=== PATIENT | male | born 1955 | race Caucasian/White ===

== ENCOUNTER 2021-01-06 15:16 | Inpatient (IN) ==
--- NOTE | 2021-01-06 15:24 | DR.SOBA ---
HPI Time Seen Time Seen by Provider: 01/06/21 15:22 Complaints Chief Complaint Doctors Comments: 65 y/o male, has been ill with covid infection x 2 weeks. Has received out patient treatment, currently receiving Remdesivir therapy, had worsening dyspnea today. + cough, productive of some white phlegm. + fever. COVID-19 Coronavirus risk:travel/contact w/high risk person: Yes Has patient experienced Coronavirus symptoms: Yes Coronavirus symptoms experienced: Fever, Coughing and Shortness of Breath Reviewed Nurses Notes Reviewed: Yes Source History Provided: Patient Mode of Arrival Mode of Arrival: Wheelchair Modifying Factors Worsens:: Exertion Improves:: Nothing Associated Signs and Symptoms Associated Signs and Symptoms: Fever and Cough If Cough Cough: Productive and White PMH PMH Past Medical History: Diabetes, Dyslipidemia, GERD, Hypertension and Kidney Stones Past Surgical History: Yes Surgical History: Ortho Surgery and Tonsillectomy Family History Family Medical History: Diabetes Mellitus, Cancer and [place] Social History Do you use any recreational Drugs:: No ROS Review of Systems Constitutional: Chills, Fever and Weakness Eyes: No Symptoms Reported ENTM: No Symptoms Reported Respiratoy: Productive Cough and Short of Breath Cardiovascular: No Symptoms Reported Gastrointestinal/Abdominal: No Symptoms Reported Genitourinary: No Symptoms Reported Neurological: No Symptoms Reported Musculoskeletal: No Symptoms Reported Integumentary: No Symptoms Reported Hematologic/Lymphatic: No Symptoms Reported Endocrine: No Symptoms Reported Psychiatric: No Symptoms Reported All Other Systems: Reviewed and Negative PE Vital Signs Vitals: Temperature 98.1 F Pulse Rate 73 Respiratory Rate 20 Blood Pressure [Left Arm] 135/68 Blood Pressure 133/67 O2 Sat by Pulse Oximetry 92 General Limitations: No Limitations General Appearance: Alert and In No Apparent Distress Head Head Exam: Normal Inspection Eyes Eye exam: Normal Appearance ENT ENT Exam: Normal Exam Neck Neck Exam: Normal Inspection Chest Chest Inspection: Normal Inspection Respiratory Respiratory Exam: Left: Rhonchi and Right: Rales and Right: Rhonchi Cardiovascular Cardiovascular Exam: Regular Rate, Normal Rhythm and Normal Heart Sounds Abdominal Exam Abdominal Exam: Normal Inspection Extremities Extremities Exam: Normal Inspection and Full ROM; negative Edema Back Back Exam: Normal Inspection and Full ROM Neurologic Neurological Exam: Alert, Oriented X3 and CN II-XII Intact; negative Motor Sensory Deficit Psychiatric Psychiatric Exam: Normal Affect and Normal Mood Skin Skin Exam: Warm and Dry MDM Differential Diagnosis Differential Diagnosis: CHF and Pneumonia Differential Diagnosis Comment:: Covid pneumonia, CAD COURSE Treatment Treatment: Pt with covid x 2 weeks, presented for outpatient Remdesivir therapy. + Hypoxic on arrival for outpatient therapy, deferred to the ER. Having worsening dyspnea today. ABG yesterday had low O2 yesterday. Requiring 5 L via NC to maintain pulse ox. W/u initiated. Given IV zithromax. Lactic acid elevated at 2.5, given IV fluids. 1702 - discussed with pt's attending, Dr. Yang. Will admit the pt, requested ABG on O2 (yesterday's on room air had low O2). ROR Labs Reviewed Laboratory Results Reviewed?: Yes Result Diagrams: 01/06/21 15:35 01/06/21 15:35 Laboratory: WBC 10.9 X10^3/uL (3.6-10.0) H 01/06/21 15:35 RBC 4.98 X10^6/uL (4.7-6.0) 01/06/21 15:35 Hgb 14.2 g/dL (13.5-18.0) 01/06/21 15:35 Hct 42.1 % (42.0-54.0) 01/06/21 15:35 MCV 84.6 fL (80.0-100.0) 01/06/21 15:35 MCH 28.5 pg (27.0-34.0) 01/06/21 15:35 MCHC 33.6 g/dL (33.0-35.0) 01/06/21 15:35 RDW 13.9 % (11.6-16.5) 01/06/21 15:35 Plt Count 380 X10^3/uL (150.0-450.0) 01/06/21 15:35 MPV 8.7 fL (7.4-11.0) 01/06/21 15:35 Neut % (Auto) 80.0 % (42.0-75.0) H 01/06/21 15:35 Lymph % (Auto) 5.1 % (21.0-51.0) L 01/06/21 15:35 [place] % (Auto) 14.6 % (0.0-13.0) H 01/06/21 15:35 Eos % (Auto) 0.0 % (0.9-2.9) L 01/06/21 15:35 Baso % (Auto) 0.3 % (0.2-1.0) 01/06/21 15:35 Neut # (Auto) 8.7 x10^3/uL (2.2-4.8) H 01/06/21 15:35 Lymph # (Auto) 0.6 X10^3/uL (1.3-2.9) L 01/06/21 15:35 [place] # (Auto) 1.6 x10^3/uL (0.3-0.8) H 01/06/21 15:35 Eos # (Auto) 0.0 x10^3/uL (0.0-0.2) 01/06/21 15:35 Baso # (Auto) 0.0 X10^3/uL (0.0-0.1) 01/06/21 15:35 Absolute Nucleated RBC 0.1 /100WBC 01/06/21 15:35 Sample Site Lbra 01/06/21 17:12 ABG pH 7.410 (7.35-7.45) 01/06/21 17:12 ABG pCO2 37.0 mmHg (35.0-45.0) 01/06/21 17:12 ABG pO2 59.0 mmHg (80.0-100.0) L 01/06/21 17:12 ABG HCO3 23.5 mmol/L (22-26) 01/06/21 17:12 ABG O2 Saturation 90.0 % (90-100) 01/06/21 17:12 ABG Base Excess -0.9 mmol/L (-2.0-2.0) 01/06/21 17:12 Mello Test N/a 01/06/21 17:12 A-a Gradient 151.0 mmHg 01/06/21 17:12 FiO2 36.0 01/06/21 17:12 Blood Gas Comments Pt andrew well elj 01/06/21 17:12 Sodium 145 mmol/L (136-145) 01/06/21 15:35 Corrected Sodium 147 mmol/L (136-145) H 01/06/21 15:35 Potassium 5.1 mmol/L (3.5-5.1) 01/06/21 15:35 Chloride 108 mmol/L (98-107) H 01/06/21 15:35 Carbon Dioxide 29.1 mmol/L (21-32) 01/06/21 15:35 BUN 44 mg/dL (7-18) H 01/06/21 15:35 Creatinine 1.51 mg/dL (0.70-1.30) H 01/06/21 15:35 Est GFR (MDRD) Af Amer 60 (>60) 01/06/21 15:35 Est GFR (MDRD) Non-Af 50 (>60) L 01/06/21 15:35 Glucose 192 mg/dL (65-99) H 01/06/21 15:35 Lactic Acid 2.5 mmol/L (0.4-2.0) H 01/06/21 15:35 Calcium 10.2 mg/dL (8.5-10.1) H 01/06/21 15:35 Corrected Calcium 11.1 mg/dL (8.5-10.1) H 01/06/21 15:35 Total Bilirubin 0.30 mg/dL (0.2-1.0) 01/06/21 15:35 AST 59 Units/L (15-37) H 01/06/21 15:35 ALT 42 Units/L (12-78) 01/06/21 15:35 Alkaline Phosphatase 40 Units/L (46-116) L 01/06/21 15:35 Creatine Kinase 295 Units/L (39-308) 01/06/21 15:35 CK-MB (CK-2) 2.4 ng/mL (0-4.0) 01/06/21 15:35 CK/CKMB % Calc 0.8 % (<4) 01/06/21 15:35 Troponin I < 0.02 ng/mL (0-1.5) 01/06/21 15:35 Total Protein 7.9 g/dL (6.4-8.2) 01/06/21 15:35 Albumin 2.9 g/dL (3.4-5.0) L 01/06/21 15:35 Globulin 5.0 g/dL (2.5-4.5) H 01/06/21 15:35 Albumin/Globulin Ratio 0.6 Ratio (1.1-2.1) L 01/06/21 15:35 XRAY XRAY Interpreted by: Self X-ray Results: + bilateral infiltrates c/w bilateral pneumonia. EKG Rate: 74 [place]: Normal Rhythm: NSR Block: IVCD Hypertrophy: LAE ST: Nonsp Opioid Opioid Risk Tool Age (Moiz box if 16-45): No History of Preadolescent Sexual Abuse: No Total: 0 Total Score Risk Category: Low Risk Copyright: Anuel GUNTER predicting aberrant behaviors Diagnosis Discharge Problem: Pneumonia due to COVID-19 virus
[2021-01-06 16:02] LABS: BASOPHILS % (AUTO) 0.3 % (0.2-1.0); HEMATOCRIT 42.1 % (42.0-54.0); HEMOGLOBIN 14.2 g/dL (13.5-18.0); LYMPHOCYTES # (AUTO) 0.6 X10^3/uL (1.3-2.9); LYMPHOCYTES % (AUTO) 5.1 % (21.0-51.0); MEAN CORPUSCULAR HEMOGLOBIN 28.5 pg (27.0-34.0); MEAN CORPUSCULAR HGB CONC 33.6 g/dL (33.0-35.0); MEAN CORPUSCULAR VOLUME 84.6 fL (80.0-100.0); MEAN PLATELET VOLUME 8.7 fL (7.4-11.0); MONOCYTES # (AUTO) 1.6 x10^3/uL (0.3-0.8); MONOCYTES % (AUTO) 14.6 % (0.0-13.0); NEUTROPHILS # (AUTO) 8.7 x10^3/uL (2.2-4.8); PLATELET COUNT 380 X10^3/uL (150.0-450.0); RED BLOOD COUNT 4.98 X10^6/uL (4.7-6.0); RED CELL DISTRIBUTION WIDTH 13.9 % (11.6-16.5); WHITE BLOOD COUNT 10.9 X10^3/uL (3.6-10.0)
[2021-01-06 16:13] LABS: LACTIC ACID 2.5 mmol/L (0.4-2.0)
[2021-01-06] MEDS ORDERED: ZITHROMAX INJ 500 MG VIAL 500 MG in NS 250 ML IV 250 ML IV SCH (16:20)
[2021-01-06 16:21] LABS: ALANINE AMINOTRANSFERASE 42 Units/L (12-78); ALBUMIN 2.9 g/dL (3.4-5.0); ALKALINE PHOSPHATASE 40 Units/L (46-116); ASPARTATE AMINO TRANSFERASE 59 Units/L (15-37); BLOOD UREA NITROGEN 44 mg/dL (7-18); CALCIUM 10.2 mg/dL (8.5-10.1); CARBON DIOXIDE 29.1 mmol/L (21-32); CHLORIDE 108 mmol/L (98-107); CKMB % 0.8 % (<4); COR CA(FOR HYPOALB) 11.1 mg/dL (8.5-10.1); COR NA(FOR HYPERGLY) 147 mmol/L (136-145); CREATINE KINASE 295 Units/L (39-308); CREATINE KINASE MB 2.4 ng/mL (0-4.0); CREATININE 1.51 mg/dL (0.70-1.30); SODIUM 145 mmol/L (136-145); TOTAL PROTEIN 7.9 g/dL (6.4-8.2); TROPONIN I < 0.02 ng/mL (0-1.5); eGFR NON BLACK RACES 50 (>60)
[2021-01-06] MEDS ORDERED: NS 1000 ML 1,000 ML IV ONE (16:22)
[2021-01-06] MEDS ORDERED: NS 1000 ML 1,000 ML ONE (16:51)
[2021-01-06] MEDS ORDERED: NS 250 ML IV 250 ML IV ONE (16:52)
[2021-01-06] MEDS ORDERED: ZITHROMAX INJ 500 MG VIAL IV ONE (16:52)
[2021-01-06 17:18] LABS: ABG BASE EXCESS -0.9 mmol/L (-2.0-2.0); ABG HCO3 23.5 mmol/L (22-26)
[2021-01-06] MEDS ORDERED: PHARMACY CONSULT - IVERMECTIN XX SCH (18:00)
[2021-01-06] MEDS ORDERED: ACCUNEB 1.25 MG NEBULE NEB SCH (18:00)
[2021-01-06] MEDS ORDERED: NS 100 ML IV 100 ML ONE (18:46)
[2021-01-06] MEDS ORDERED: ACCUNEB 1.25 MG NEBULE NEB PRN (19:01)
[2021-01-06 19:12] LABS: CKMB % 0.8 % (<4); CREATINE KINASE 357 Units/L (39-308); CREATINE KINASE MB 2.7 ng/mL (0-4.0); TROPONIN I < 0.02 ng/mL (0-1.5)
[2021-01-06] MEDS: BROVANA IN SCH (20:11)
[2021-01-06] MEDS: PULMICORT NEB TX 0.5 MG NEB SCH (20:11)
--- NOTE | 2021-01-06 20:25 | CT ---
HISTORYSOB/ COVIDSTUDYCTA CHESTCOMPARISONNoneTECHNIQUECT images of the chest were obtained after IV contrast administration per protocol. Automatic exposure control was utilized. MIP images provided and reviewed.FINDINGSImages through the upper abdomen demonstrate moderate hiatal hernia of the stomach. 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 No acute osseous abnormality.The heart size is normal without significant pericardial thickening or pericardial effusion. No pathologically enlarged intrathoracic lymph nodes are identified. The thoracic aorta is grossly unremarkable for technique. Evaluation of the smaller segmental and subsegmental pulmonary arteries is limited by suboptimal contrast bolus timing. Accounting for this, no pulmonary arterial filling defect can be identified. There are peripheral predominant patchy ground-glass opacities throughout both lungs. No pleural effusion or pneumothorax. The large airways are patent.IMPRESSIONExtensive atypical/viral pneumonitis, in keeping with the above history of COVID-19.No evidence for central or large proximal PTE.Hiatal hernia.Electronically signed by: LAUREN STEWART (Jan 06, 2021 20:22:23)
[2021-01-06] MEDS ORDERED: NS 1/2 1000 ML IV 1,000 ML IV ONE (21:09)
[2021-01-06] MEDS: IVERMECTIN PO SCH (22:05)
[2021-01-06] MEDS: PEPCID TAB 20 MG PO SCH (22:05)
[2021-01-06] MEDS: MELATONIN PO SCH (22:05)
[2021-01-06] MEDS: MAGIC MOUTHWASH MT SCH (22:05)
[2021-01-06] MEDS: FLUVOXAMINE MALEATE PO SCH (22:05)
[2021-01-06] MEDS: THIAMINE HCL INJ IVP SCH (22:05)
[2021-01-06] MEDS: SINGULAIR TAB 10 MG PO SCH (22:05)
[2021-01-06] MEDS: LIPITOR TAB 80 MG PO SCH (22:05)
[2021-01-06] MEDS: TESSALON PERLES PO SCH (22:05)
[2021-01-06] MEDS: PROTONIX TAB 40 MG PO SCH (22:05)
[2021-01-06] MEDS: PERIACTIN TAB 4 MG PO SCH (22:05)
[2021-01-06] MEDS: NS 1/2 1000 ML IV 1,000 ML IV SCH (22:06)
[2021-01-06] MEDS: ASCORBIC ACID INJ MULTI-DOSE VIAL 1,500 MG in NS 50 ML IV 50 ML IV SCH (22:06)
[2021-01-06] MEDS: SOLU-Medrol 40 MG VIAL IVP SCH ×2 (22:06→22:33)
[2021-01-06] MEDS ORDERED: ROBITUSSIN DM ONE (22:23)
[2021-01-06] MEDS: SNACK - Diabetic Appropriate PO SCH (22:30)
[2021-01-06] MEDS: ROBITUSSIN DM PO PRN (22:34)
[2021-01-06] MEDS: REMDESIVIR 100 MG in NS 250 ML IV 250 ML IV SCH (22:40)
[2021-01-07 03:49] LABS: ABG BASE EXCESS -0.5 mmol/L (-2.0-2.0); ABG HCO3 24.2 mmol/L (22-26)
[2021-01-07 03:50] LABS: ABG ALLEN TEST POS
[2021-01-07] MEDS: ASCORBIC ACID INJ MULTI-DOSE VIAL 1,500 MG in NS 50 ML IV 50 ML IV SCH ×4 (04:00→21:00)
--- NOTE | 2021-01-07 05:26 | RAD ---
PROCEDURE: Chest X-ray 1 View .HISTORY: Dyspnea.TECHNIQUE: AP view .COMPARISON: 01/06/2021.TECHNICAL QUALITY: Satisfactory .FINDINGS:Normal size heart .Mediastinum and hilar regions show no masses or lymphadenopathy .Normal central vascularity .Continued consolidation left base consistent with pneumonia. Similar appearing consolidation right mid lung feel with some atelectasis. No pleural fluid or pneumothorax.No acute bony abnormality .IMPRESSION:Unchanged bilateral pneumonia and atelectasis.Electronically signed by: Jeffery Valdez (Jan 07, 2021 05:23:25)
[2021-01-07] MEDS ORDERED: TESSALON PERLES PO ONE ×2 (05:31→13:57)
[2021-01-07] MEDS ORDERED: SOLU-Medrol 40 MG VIAL ONE ×2 (05:31→13:57)
[2021-01-07 06:21] LABS: BASOPHILS % (AUTO) 0.3 % (0.2-1.0); HEMATOCRIT 38.5 % (42.0-54.0); HEMOGLOBIN 12.7 g/dL (13.5-18.0); LYMPHOCYTES # (AUTO) 0.5 X10^3/uL (1.3-2.9); LYMPHOCYTES % (AUTO) 4.4 % (21.0-51.0); MEAN CORPUSCULAR HGB CONC 33.1 g/dL (33.0-35.0); MEAN CORPUSCULAR VOLUME 84.7 fL (80.0-100.0); MEAN PLATELET VOLUME 9.4 fL (7.4-11.0); MONOCYTES # (AUTO) 0.5 x10^3/uL (0.3-0.8); NEUTROPHILS # (AUTO) 10.6 x10^3/uL (2.2-4.8); NEUTROPHILS % (AUTO) 91.3 % (42.0-75.0); PLATELET COUNT 358 X10^3/uL (150.0-450.0); RED BLOOD COUNT 4.55 X10^6/uL (4.7-6.0); RED CELL DISTRIBUTION WIDTH 13.8 % (11.6-16.5); WHITE BLOOD COUNT 11.6 X10^3/uL (3.6-10.0)
[2021-01-07 06:30] LABS: ALANINE AMINOTRANSFERASE 37 Units/L (12-78); ALBUMIN 2.5 g/dL (3.4-5.0); ALKALINE PHOSPHATASE 34 Units/L (46-116); ASPARTATE AMINO TRANSFERASE 56 Units/L (15-37); BLOOD UREA NITROGEN 38 mg/dL (7-18); CARBON DIOXIDE 26.9 mmol/L (21-32); CHLORIDE 111 mmol/L (98-107); COR CA(FOR HYPOALB) 10.2 mg/dL (8.5-10.1); COR NA(FOR HYPERGLY) 149 mmol/L (136-145); CREATININE 1.24 mg/dL (0.70-1.30); SODIUM 146 mmol/L (136-145); TOTAL PROTEIN 6.8 g/dL (6.4-8.2); eGFR NON BLACK RACES > 60 (>60)
[2021-01-07] MEDS: SOLU-Medrol 40 MG VIAL IVP SCH ×3 (06:35→21:00)
[2021-01-07] MEDS: PERIACTIN TAB 4 MG PO SCH ×3 (06:35→21:00)
[2021-01-07] MEDS: TESSALON PERLES PO SCH ×3 (06:35→21:00)
[2021-01-07] MEDS: NS 1/2 1000 ML IV 1,000 ML IV SCH ×2 (06:35→20:00)
[2021-01-07] MEDS ORDERED: HumuLIN R ONE ×2 (07:00→13:14)
[2021-01-07] MEDS: HumuLIN R SUBCUT PRN ×4 (07:05→21:00)
[2021-01-07 07:36] LABS: BAND NEUTROPHILS % 4 % (0-10); PLATELET MORPHOLOGY COMMENT NORMAL (NORMAL)
[2021-01-07] MEDS ORDERED: PROTONIX TAB 40 MG PO ONE (08:43)
[2021-01-07] MEDS ORDERED: ZyrTEC TAB 10 MG ONE (08:43)
[2021-01-07] MEDS ORDERED: THIAMINE HCL INJ ONE (08:44)
[2021-01-07] MEDS ORDERED: PEPCID TAB 20 MG ONE (08:44)
[2021-01-07] MEDS ORDERED: VITAMIN D3 125 mcg (5,000 UNITS) ONE (08:44)
[2021-01-07] MEDS ORDERED: REMDESIVIR IV ONE (08:44)
[2021-01-07] MEDS ORDERED: LOVENOX INJ 40 MG SYR SC ONE (08:44)
[2021-01-07] MEDS ORDERED: ZINC SULFATE ONE (08:44)
[2021-01-07] MEDS ORDERED: NS 500 ML IV 500 ML IV ONE (08:45)
[2021-01-07] MEDS ORDERED: NS 250 ML IV 250 ML IV ONE ×2 (08:45→08:46)
[2021-01-07] MEDS ORDERED: ZITHROMAX INJ 500 MG VIAL IV ONE (08:45)
[2021-01-07] MEDS ORDERED: LEVAQUIN PREMIX IV 500 MG 500 MG/100 ML BAG IV ONE (08:45)
[2021-01-07] MEDS: ZyrTEC TAB 10 MG PO SCH (08:59)
[2021-01-07] MEDS: AVODART PO SCH (09:00)
[2021-01-07] MEDS: LEVAQUIN PREMIX IV 500 MG 500 MG/100 ML BAG IV SCH (09:01)
[2021-01-07] MEDS: ZITHROMAX INJ 500 MG VIAL 500 MG in NS 250 ML IV 250 ML IV SCH (09:02)
[2021-01-07] MEDS: REMDESIVIR 100 MG in NS 250 ML IV 250 ML IV SCH (09:03)
[2021-01-07] MEDS: FLUVOXAMINE MALEATE PO SCH ×2 (09:03→21:00)
[2021-01-07] MEDS: MAGIC MOUTHWASH MT SCH ×4 (09:04→21:00)
[2021-01-07] MEDS: THIAMINE HCL INJ IVP SCH ×2 (09:04→21:00)
[2021-01-07] MEDS: LOVENOX INJ 40 MG SYR SC SCH (09:05)
[2021-01-07] MEDS: VITAMIN D3 125 mcg (5,000 UNITS) PO SCH (09:06)
[2021-01-07] MEDS: ZINC SULFATE PO SCH (09:06)
[2021-01-07] MEDS: PROTONIX TAB 40 MG PO SCH ×2 (09:08→21:00)
[2021-01-07] MEDS: PEPCID TAB 20 MG PO SCH ×2 (09:08→21:00)
[2021-01-07] MEDS: BROVANA IN SCH ×2 (09:44→21:00)
[2021-01-07] MEDS: PULMICORT NEB TX 0.5 MG NEB SCH ×2 (09:44→21:00)
[2021-01-07] MEDS: SNACK - Diabetic Appropriate PO SCH (20:00)
[2021-01-07] MEDS ORDERED: NS 1/2 1000 ML IV 1,000 ML IV ONE (20:10)
[2021-01-07] MEDS: SINGULAIR TAB 10 MG PO SCH (21:00)
[2021-01-07] MEDS: LIPITOR TAB 80 MG PO SCH (21:00)
[2021-01-07] MEDS: MELATONIN PO SCH (21:00)
[2021-01-07] MEDS: IVERMECTIN PO SCH (21:00)
[2021-01-08] MEDS: ASCORBIC ACID INJ MULTI-DOSE VIAL 1,500 MG in NS 50 ML IV 50 ML IV SCH ×4 (03:35→21:00)
[2021-01-08 05:07] LABS: BASOPHILS # (AUTO) 0.1 X10^3/uL (0.0-0.1); BASOPHILS % (AUTO) 0.6 % (0.2-1.0); HEMATOCRIT 36.8 % (42.0-54.0); HEMOGLOBIN 12.2 g/dL (13.5-18.0); LYMPHOCYTES # (AUTO) 0.5 X10^3/uL (1.3-2.9); LYMPHOCYTES % (AUTO) 3.1 % (21.0-51.0); MEAN CORPUSCULAR HGB CONC 33.3 g/dL (33.0-35.0); MEAN CORPUSCULAR VOLUME 83.9 fL (80.0-100.0); MEAN PLATELET VOLUME 9.1 fL (7.4-11.0); MONOCYTES # (AUTO) 0.8 x10^3/uL (0.3-0.8); MONOCYTES % (AUTO) 4.8 % (0.0-13.0); NEUTROPHILS # (AUTO) 14.5 x10^3/uL (2.2-4.8); NEUTROPHILS % (AUTO) 91.5 % (42.0-75.0); PLATELET COUNT 380 X10^3/uL (150.0-450.0); RED BLOOD COUNT 4.38 X10^6/uL (4.7-6.0); RED CELL DISTRIBUTION WIDTH 14.1 % (11.6-16.5); WHITE BLOOD COUNT 15.8 X10^3/uL (3.6-10.0)
[2021-01-08 05:22] LABS: ALANINE AMINOTRANSFERASE 40 Units/L (12-78); ALBUMIN 2.4 g/dL (3.4-5.0); ALKALINE PHOSPHATASE 37 Units/L (46-116); ASPARTATE AMINO TRANSFERASE 48 Units/L (15-37); BLOOD UREA NITROGEN 37 mg/dL (7-18); CALCIUM 8.6 mg/dL (8.5-10.1); CARBON DIOXIDE 26.4 mmol/L (21-32); CHLORIDE 111 mmol/L (98-107); COR CA(FOR HYPOALB) 9.9 mg/dL (8.5-10.1); COR NA(FOR HYPERGLY) 149 mmol/L (136-145); CREATININE 1.19 mg/dL (0.70-1.30); SODIUM 145 mmol/L (136-145); TOTAL PROTEIN 6.4 g/dL (6.4-8.2); eGFR NON BLACK RACES > 60 (>60)
[2021-01-08 05:59] LABS: ABG HCO3 25.2 mmol/L (22-26)
[2021-01-08 06:00] LABS: ABG ALLEN TEST POSS
[2021-01-08 06:00] LABS: METAMYELOCYTES % 2; PLATELET MORPHOLOGY COMMENT NORMAL (NORMAL)
[2021-01-08] MEDS: TESSALON PERLES PO SCH ×3 (06:29→21:00)
[2021-01-08] MEDS: PERIACTIN TAB 4 MG PO SCH ×3 (06:29→21:00)
[2021-01-08] MEDS: SOLU-Medrol 40 MG VIAL IVP SCH ×3 (06:29→21:00)
[2021-01-08] MEDS: HumuLIN R SUBCUT PRN ×3 (06:30→21:00)
--- NOTE | 2021-01-08 07:01 | RAD ---
HISTORYSOBSTUDYCHEST, 1 VIEWCOMPARISONOne day prior.TECHNIQUEAP view of the chestFINDINGSCardiac and mediastinal contours are within normal limits. No significant change in bilateral airspace and interstitial opacities. No definite pleural effusion or pneumothorax. Soft tissue attenuation limits evaluation.IMPRESSIONNo significant change.Electronically signed by: Dick Banegas (Jan 08, 2021 06:57:48)
[2021-01-08] MEDS ORDERED: NS 50 ML IV 50 ML IV ONE (08:33)
[2021-01-08] MEDS: ZINC SULFATE PO SCH (08:42)
[2021-01-08] MEDS: ROBITUSSIN DM PO PRN ×3 (08:42→18:02)
[2021-01-08] MEDS: ZyrTEC TAB 10 MG PO SCH (08:42)
[2021-01-08] MEDS: FLUVOXAMINE MALEATE PO SCH ×2 (08:42→21:00)
[2021-01-08] MEDS: PEPCID TAB 20 MG PO SCH ×2 (08:42→21:00)
[2021-01-08] MEDS: AVODART PO SCH (08:42)
[2021-01-08] MEDS: VITAMIN D3 125 mcg (5,000 UNITS) PO SCH (08:42)
[2021-01-08] MEDS: PROTONIX TAB 40 MG PO SCH ×2 (08:42→21:00)
[2021-01-08] MEDS: THIAMINE HCL INJ IVP SCH ×2 (08:43→21:00)
[2021-01-08] MEDS: LOVENOX INJ 40 MG SYR SC SCH (08:55)
[2021-01-08] MEDS: MAGIC MOUTHWASH MT SCH ×4 (08:56→21:00)
[2021-01-08] MEDS ORDERED: CELEBREX PO SCH (09:00)
[2021-01-08] MEDS: [UNRECOGNIZED DRUG - OTHER] PO SCH (09:30)
[2021-01-08] MEDS: SYNTHROID 50 mcg TAB PO SCH (09:30)
[2021-01-08] MEDS: SITAGLIPTIN METFORMIN PO SCH (09:32)
[2021-01-08] MEDS: [UNRECOGNIZED DRUG - OTHER] PO SCH (09:32)
[2021-01-08] MEDS: MULT PO SCH (09:32)
[2021-01-08] MEDS: PRASTERONE 25 MG PO SCH (09:33)
[2021-01-08] MEDS: QUINAPRIL 40 MG PO SCH ×2 (09:33→21:00)
[2021-01-08] MEDS: LEVAQUIN PREMIX IV 500 MG 500 MG/100 ML BAG IV SCH (09:34)
[2021-01-08] MEDS: MICRO K EXTEN CAP 10 MEQ PO SCH (09:35)
[2021-01-08] MEDS: FENOFIBRATE 50 MG PO SCH (09:37)
[2021-01-08] MEDS: DITROPAN TAB 5 MG PO SCH (09:38)
[2021-01-08] MEDS: NS 1/2 1000 ML IV 1,000 ML IV SCH ×2 (09:39→17:00)
[2021-01-08] MEDS: LYRICA CAP 150 mg PO SCH (09:46)
[2021-01-08] MEDS: BROVANA IN SCH ×2 (10:00→21:29)
[2021-01-08] MEDS: PULMICORT NEB TX 0.5 MG NEB SCH ×2 (10:00→21:29)
--- NOTE | 2021-01-08 10:30 | DR.H&P ---
H&P - History & Physical for Day of: H&P Date: 01/06/21 - Chief Complaint Chief Complaint: COUGH, SOB, LOW OXYGEN SATURATIONS, COVID POSITIVE - History of Present Illness History of Present Illness: MR. STEVENSON A 65 YEAR OLD PATIENT OF OURS. HE PRESENTED TO THE ER WITH COMPLAINTS OF A PRODUCTIVE COUGH, INCREASED SHORTNESS OF BREATH, FATIGUE, WEAKNESS, FEVER, AND DECREASED APPETITE. PATIENT HAS RECEIVED ONE DOSE OUT OUTPATIENT REMDESIVIR FOR TREATMENT OF COVID-19. HE RETURNED FOR HIS SECOND DOSE TODAY, HOWEVER, WAS SENT TO THE ER FOR EVALUATION DUE TO WORSENING SYMPTOMS AND OXYGEN SATURATIONS 78% ON ROOM AIR. HE TESTED POSITIVE FOR COVID-19 ABOUT A WEEK AGO. HE REPORTS THAT HIS OXYGEN SATURATIONS AT HOME HAVE OCCASIONALLY DROPPED TO THE 80s ON ROOM AIR. HE DOES NOT HAVE HOME OXYGEN. AT HOME, HE HAS TAKEN A MEDROL DOSEPACK, DOXYCYCLINE 100MG PO BID X 10 DAYS, IVERMECTIN, AND AMOXICILLIN 875MG PO BID X 5 DAYS. HE DENIED IMPROVEMENT IN SYMPTOMS DESPITE COMPLIANCE WITH MEDICATIONS. HIS PMH INCLUDES: CARDIAC ARRHYTHMIA, HYPERLIPIDEMIA, HTN, GERD, KIDNEY STONES, BACK SURGERY, DM II, HYPOTHYROIDISM, CARDIAC ABLATION, TONSILLECTOMY, BACK SURGERY. ON ARRIVAL TO THE HOSPITAL, VITALS WERE 98.7-73-20-95%NC-163/86. LABS WERE OBTAINED. ABNORMAL LAB VALUES INCLUDE THE FOLLOWING: WBC 10.9, CHLORIDE 108, BUN 44, CREATININE 1.51, GLUCOSE 192, LACTIC ACID 2.5, CALCIUM 10.2, FERRITIN 696, AST 59, ALK PHOS 40, CRP 57.90, BNP 100, ALBUMIN 2.9, GLOBULIN 5.0. ABG REVEALED: PH 7.410, PC02 37, PC02 59, HC03 23.5, 02 SAT 90, A-A GRADIENT 151, FI02 36. BLOOD CULTURES WERE SET UP. A CHEST CTA WAS OBTAINED AND REVEALED: Extensive atypical/viral pne umonitis, in keeping with the above history of COVID-19. No evidence for central or large proximal PTE. Hiatal hernia. EKG REVEALED: SINUS RHYTHM WITH HR 74. HE WAS ADMITTED TO THE HOSPITAL FOR FURTEHR EVALUATION AND TREATMENT OF COVID 19 PNEUMONIA AND HYPOXIA. HE WAS STARTED ON NS AT 75 ML/HR, REMDESIVIR 100MG IV DAILY, LEVAQUIN 500MG IV DAILY, AITHROMYCIN 500MG IV DAILY, SOLU-MEDROL 80MG IV Q8H, IVERMECTIN 15MG PO DAILY X 5 DAYS, PROTONIX 40MG PO BID, PEPCID 20MG PO BID, THIAMINE 200MG IV BID, ZINC 220MG PO DAILY, SINGULAIR 10MG PO HS, ZYRTEC 10MG PO DAILY, OTBS ACHS, HUMULIN R SLIDING SCALE, MELATONIN 10MG PO HS, ROBITUSSIN DM 10ML PO QID PRN, LOVENOX 40MG SC DAILY, PERIACTIN 8MG PO TID, PULMICORT NEBS BID, ALBUTEROL NEBS QID, BROVANA INHALER BID, TESSALON PERLES 200MG PO TID, LIPITOR 80MG PH HS, ASCORBIC ACID 1500MG IV Q6H, FLUVOXAMINE 50MG PO BID, ZOFRAN 4MG IV Q4H PRN NAUSEA, AMBIEN 5MG PO HS PRN, AND MAGIC MOUTHWASH QID. HIS HOME MEDICATIONS OF CELEBREX, SYNTHROID, DITROPAN, AND LYRICA WERE ALSO RESUMED. WE PLAN TO OBTAIN AN ECHO. OTHERWISE, WE WILL FOLLOW UP WITH AM LABS, CHEST XRAY, ABG AND CONTINUE TO MONITOR. TIME SPENT ON CLINICAL ASSESSMENT, REVIEWING LABS AND IMAGING, DECISION MAKING, AND DOCUMENTATION GREATER THAN 75 MINUTES. - Past Medical History Past Medical History: Hypertension, Dyslipidemia, Diabetes, GERD, Kidney Stones - Past Surgical History Surgical History: Ortho Surgery, Tonsillectomy - Family History Family Medical History: Diabetes Mellitus, Cancer, [place] - Social History Does patient currently use any type of tobacco product: No Have you used tobacco products in the last 12 months: No Type of Tobacco Use: None Does any household member use tobacco: No Alcohol Use: None Drug Use: None - Medications Home Medications: No Known Drug Allergies Allergy (Verified 01/06/21 14:36) CONTINUE taking the following medications celecoxib 200 mg PO DAILY 01/07/21 [History] cholecalciferol (vitamin D3) [Vitamin D3] 10,000 unit PO DAILY 01/07/21 [History] fenofibrate 200 mg PO DAILY 01/07/21 [History] gabapentin [Neurontin] 100 mg PO TID 01/07/21 [History] axrno-qjhij-5-vnz-ktu-qnnjim [krill oil] 350 cap PO DAILY 01/07/21 [History] oxybutynin chloride 5 mg PO DAILY 01/07/21 [History] prasterone (dhea) [DHEA] 25 mg PO DAILY 01/07/21 [History] sitagliptin-metformin [Janumet XR] 1 tab PO DAILY 01/07/21 [History] - Review of Systems Constitutional: Weakness Eyes: No Symptoms Reported ENT: No Symptoms Reported Respiratory: Cough, Shortness of Breath Cardiovascular: No Symptoms Reported Gastrointestinal: No Symptoms Reported Genitourinary: No Symptoms Reported Musculoskeletal: No Symptoms Reported Skin: No Symptoms Reported Neurological: Weakness - Physical Exam Vital Signs: Temperature 97.9 F Pulse Rate [Left Brachial] 65 Pulse Rate [Apical] 66 Pulse Rate 62 Respiratory Rate 21 Blood Pressure [Left Arm] 161/77 Blood Pressure 157/77 O2 Sat by Pulse Oximetry 88 Oriented: Normal Eyes: Normal Ear: Normal Nose: Normal Throat: Normal Respiratory: Rales Throughout Cardiovascular: Normal : Normal Auscultation: Bowel Sounds: Normal Palpation: Normal Tenderness: Normal Skin: Normal Musculoskeletal: Normal Psychiatric: Normal Mood Description: Calm Affect: Normal Speech Pattern: Clear - Assessment/Plan (1) Pneumonia due to COVID-19 virus Status: Acute Plan: ADMIT, SUPPLEMENTAL OXYGEN, IV FLUIDS, IV REMDESIVIR, IV ANTIBIOTICS, SOLU-MEDROL, RESPIRATORY THERAPY, RESPIRATORY TX (2) Hypoxia Status: Acute - Allergies Allergies/Adverse Reactions: Allergies Allergy/AdvReac Type Severity Reaction Status Date / Time No Known Drug Allergies Allergy Verified 01/06/21 14:36
[2021-01-08] MEDS: REMDESIVIR 100 MG in NS 250 ML IV 250 ML IV SCH (10:47)
--- NOTE | 2021-01-08 11:07 | PCM.PROG ---
Progress Note - Progress Note for Day of Date of Exam: 01/07/21 - Subjective Subjective: MR. STEVENSON WAS ADMITTED FOR TREATMENT OF COVID PNEUMONIA AND HYPOXIA. TODAY, HE IS ALERT AND ORIENTED, LYING IN BED ON MORNING ROUNDS. HE CONTINUES WITH COMPLAINTS OF COUGH, SHORTNESS OF BREATH, AND WEAKNESS TODAY. HE IS CURRENTLY ON HEATED HIGH FLOW OXYGEN. HIS SATURATIONS HAVE DROPPED INTO THE 80s ON MULTIPLE OCCASIONS THROUGHOUT THE NIGHT. ON EXAMINATION, HEART IS REGULAR IN RATE AND RHYTHM. BILATERAL LUNGS ARE NOTED WITH RALES THROUGHOUT. ABDOMEN IS ROUND, SOFT, AND NON-TENDER WITH NORMAL BOWEL SOUNDS NOTED IN ALL QUADRANTS. HIS VITALS THIS MORNING ARE: 98.8-68-28-93%-167/83. LABS WERE OBTAINED. ABNORMAL LAB VALUES INCLUDE THE FOLLOWING: WBC 11.6, RBC 4.55, HGB 12.7, HCT 38.5, SODIUM 146, CHLORIDE 111, BUN 38, GLUCOSE 223, FERRITIN 711, AST 56, ALK PHOS 34, CRP 33.90, ALBUMIN 2.5. AN ABG WAS OBTAINED AND REVEALED: PH 7.400, PC02 39, P02 80, HC03 24.2, 02 SAT 96, A-A GRADIENT 406, FI02 75. BLOOD CULTURES ARE PENDING. A CHEST XRAY WAS OBTAINED AND REVEALED: Unchanged bilateral pneumonia and atelectasis. AN ECHO WAS OBTAINED AND REVEALED AN EJECTION FRACTION OF 61%. HE IS CURRENTLY RECEIVING NS AT 75 ML/HR, REMDESIVIR 100MG IV DAILY, LEVAQUIN 500MG IV DAILY, AITHROMYCIN 500MG IV DAILY, SOLU-MEDROL 80MG IV Q8H, IVERMECTIN 15MG PO DAILY X 5 DAYS, PROTONIX 40MG PO BID, PEPCID 20MG PO BID, THIAMINE 200MG IV BID, ZINC 220MG PO DAILY, SINGULAIR 10MG PO HS, ZYRTEC 10MG PO DAILY, OTBS ACHS, HUMULIN R SLIDING SCALE, MELATONIN 10MG PO HS, ROBITUSSIN DM 10ML PO QID PRN, LOVENOX 40MG SC DAILY, PERIACTIN 8MG PO TID, PULMICORT NEBS BID, ALBUTEROL NEBS QID, BROVANA INHALER BID, TESSALON PERLES 200MG PO TID, LIPITOR 80MG PH HS, ASCORBIC ACID 1500MG IV Q6H, FLUVOXAMINE 50MG PO BID, ZOFRAN 4MG IV Q4H PRN NAUSEA, AMBIEN 5MG PO HS PRN, AND MAGIC MOUTHWASH QID. HIS HOME MEDICATIONS OF CELEBREX, SYNTHROID, DITROPAN, AND LYRICA WERE ALSO RESUMED. WE WILL CONTINUE WITH CURRENT PLAN OF CARE TODAY. OTHERWISE, WE WILL FOLLOW UP WITH AM LABS, CHEST XRAY, ABG, AND CONTINUE TO MONITOR. TIME SPENT ON CLINICAL ASSESSMENT, REVIEWING LABS AND IMAGING, DECISION MAKING, AND DOCUMENTATION GREATER THAN 45 MINUTES. - Past Medical Family Social History Past Med/Fam/Surg Hx: No changes since H&P Allergies: Allergies No Known Drug Allergies Allergy (Verified 01/06/21 14:36) - Review of Systems ROS: No change since H&P - Vital Signs and I&O's Vital Signs: Temperature 97.9 F Pulse Rate [Left Brachial] 65 Pulse Rate [Apical] 66 Pulse Rate 62 Respiratory Rate 21 Blood Pressure [Left Arm] 161/77 Blood Pressure 157/77 O2 Sat by Pulse Oximetry 88 Intake and Output: Intake & Output 01/05/21 01/06/21 01/07/21 01/08/21 11:59 11:59 11:59 11:59 Intake Total 2311 / 2311 1560 / 1560 Output Total 975 / 975 Balance 1336 / 1336 1560 / 1560 - Physical Exam Oriented: Normal Eyes: Normal Ear: Normal Nose: Normal Throat: Normal Respiratory: Generalized, Rales Cardiovascular: Normal : Normal Auscultation: Bowel Sounds: Normal Palpation: Normal Tenderness: Normal Skin: Normal Musculoskeletal: Normal Psychiatric: Normal Mood Description: Calm Affect: Normal Speech Pattern: Clear - Laboratory and Diagnostics Result Diagrams: 01/08/21 04:47 01/08/21 04:47 Labs: Laboratory WBC 15.8 X10^3/uL (3.6-10.0) H 01/08/21 04:47 RBC 4.38 X10^6/uL (4.7-6.0) L 01/08/21 04:47 Hgb 12.2 g/dL (13.5-18.0) L 01/08/21 04:47 Hct 36.8 % (42.0-54.0) L 01/08/21 04:47 MCV 83.9 fL (80.0-100.0) 01/08/21 04:47 MCH 28.0 pg (27.0-34.0) 01/08/21 04:47 MCHC 33.3 g/dL (33.0-35.0) 01/08/21 04:47 RDW 14.1 % (11.6-16.5) 01/08/21 04:47 Plt Count 380 X10^3/uL (150.0-450.0) 01/08/21 04:47 Plt Count Comment Adequate (ADEQUATE) 01/08/21 04:47 MPV 9.1 fL (7.4-11.0) 01/08/21 04:47 Neut % (Auto) 91.5 % (42.0-75.0) H 01/08/21 04:47 Lymph % (Auto) 3.1 % (21.0-51.0) L 01/08/21 04:47 [place] % (Auto) 4.8 % (0.0-13.0) 01/08/21 04:47 Eos % (Auto) 0.0 % (0.9-2.9) L 01/08/21 04:47 Baso % (Auto) 0.6 % (0.2-1.0) 01/08/21 04:47 Neut # (Auto) 14.5 x10^3/uL (2.2-4.8) H 01/08/21 04:47 Lymph # (Auto) 0.5 X10^3/uL (1.3-2.9) L 01/08/21 04:47 [place] # (Auto) 0.8 x10^3/uL (0.3-0.8) 01/08/21 04:47 Eos # (Auto) 0.0 x10^3/uL (0.0-0.2) 01/08/21 04:47 Baso # (Auto) 0.1 X10^3/uL (0.0-0.1) 01/08/21 04:47 Absolute Nucleated RBC 0.0 /100WBC 01/08/21 04:47 Total Counted 100 01/08/21 04:47 Neutrophils % (Manual) 91 % (39-76) H 01/08/21 04:47 Band Neutrophils % 4 % (0-10) 01/07/21 03:47 Lymphocytes % (Manual) 5 % (13-43) L 01/08/21 04:47 Monocytes % (Manual) 2 % (4-9) L 01/07/21 03:47 Metamyelocytes % 2 01/08/21 04:47 Plt Morphology Comment Normal (NORMAL) 01/08/21 04:47 RBC Morphology Normal (NORMAL) 01/08/21 04:47 D-Dimer 0.51 ug/ml (0.0-0.57) 01/08/21 04:47 Sample Site L-rad 01/08/21 05:50 ABG pH 7.430 (7.35-7.45) 01/08/21 05:50 ABG pCO2 38.0 mmHg (35.0-45.0) 01/08/21 05:50 ABG pO2 51.0 mmHg (80.0-100.0) L 01/08/21 05:50 ABG HCO3 25.2 mmol/L (22-26) 01/08/21 05:50 ABG O2 Saturation 87.0 % (90-100) L 01/08/21 05:50 ABG Base Excess 1.0 mmol/L (-2.0-2.0) 01/08/21 05:50 Mello Test Poss 01/08/21 05:50 A-a Gradient 458.0 mmHg 01/08/21 05:50 FiO2 78.0 01/08/21 05:50 Blood Gas Comments Andi well 01/08/21 05:50 Sodium 145 mmol/L (136-145) 01/08/21 04:47 Corrected Sodium 149 mmol/L (136-145) H 01/08/21 04:47 Potassium 4.3 mmol/L (3.5-5.1) 01/08/21 04:47 Chloride 111 mmol/L (98-107) H 01/08/21 04:47 Carbon Dioxide 26.4 mmol/L (21-32) 01/08/21 04:47 BUN 37 mg/dL (7-18) H 01/08/21 04:47 Creatinine 1.19 mg/dL (0.70-1.30) 01/08/21 04:47 Est GFR (MDRD) Af Amer > 60 (>60) 01/08/21 04:47 Est GFR (MDRD) Non-Af > 60 (>60) 01/08/21 04:47 Glucose 270 mg/dL (65-99) H 01/08/21 04:47 Lactic Acid 2.5 mmol/L (0.4-2.0) H 01/06/21 15:35 Calcium 8.6 mg/dL (8.5-10.1) 01/08/21 04:47 Corrected Calcium 9.9 mg/dL (8.5-10.1) 01/08/21 04:47 Ferritin 495 ng/mL (26-388) H 01/08/21 04:47 Total Bilirubin 0.30 mg/dL (0.2-1.0) 01/08/21 04:47 AST 48 Units/L (15-37) H 01/08/21 04:47 ALT 40 Units/L (12-78) 01/08/21 04:47 Alkaline Phosphatase 37 Units/L (46-116) L 01/08/21 04:47 Creatine Kinase 357 Units/L (39-308) H 01/06/21 18:29 CK-MB (CK-2) 2.7 ng/mL (0-4.0) 01/06/21 18:29 CK/CKMB % Calc 0.8 % (<4) 01/06/21 18:29 Troponin I < 0.02 ng/mL (0-1.5) 01/06/21 18:29 C-Reactive Protein 14.50 mg/L (0-3.0) H 01/08/21 04:47 B-Natriuretic Peptide 153 pg/mL (0-79) H 01/08/21 04:47 Total Protein 6.4 g/dL (6.4-8.2) 01/08/21 04:47 Albumin 2.4 g/dL (3.4-5.0) L 01/08/21 04:47 Globulin 4.0 g/dL (2.5-4.5) 01/08/21 04:47 Albumin/Globulin Ratio 0.6 Ratio (1.1-2.1) L 01/08/21 04:47 - Plan (1) Pneumonia due to COVID-19 virus Status: Acute Plan: SUPPLEMENTAL OXYGEN, IV FLUIDS, IV REMDESIVIR, IV ANTIBIOTICS, SOLU- MEDROL, RESPIRATORY THERAPY, RESPIRATORY [place] (2) Hypoxia Status: Acute
--- NOTE | 2021-01-08 11:12 | PCM.PROG ---
Progress Note - Progress Note for Day of Date of Exam: 01/08/21 - Subjective Subjective: MR. STEVENSON WAS ADMITTED FOR TREATMENT OF COVID PNEUMONIA AND HYPOXIA. TODAY, HE IS ALERT AND ORIENTED, SITTING UP IN ON MORNING ROUNDS. HE CONTINUES WITH COMPLAINTS OF COUGH, SHORTNESS OF BREATH, AND WEAKNESS TODAY, BUT DOES REPORT SLIGHT IMPROVEMENT IN SYMPTOMS. HE REMAINS HEATED HIGH FLOW OXYGEN. HIS OXYGEN SATURATIONS HAVE BEEN ANYWHERE FROM 84-96% WHILE ON HEATED HIGH FLOW. ON EXAMINATION, HEART IS REGULAR IN RATE AND RHYTHM. BILATERAL LUNGS ARE NOTED WITH RALES THROUGHOUT. ABDOMEN IS ROUND, SOFT, AND NON-TENDER WITH NORMAL BOWEL SOUNDS NOTED IN ALL QUADRANTS. HIS VITALS THIS MORNING ARE: 97.9-65-21-88%-161/77. LABS WERE OBTAINED. ABNORMAL LAB VALUES INCLUDE THE FOLLOWING: WBC 15.8, RBC 4.38, HGB 12.2, HCT 36.8, CHLORIDE 111, BUN 37, GLUCOSE 270, FERRITIN 495, AST 48, ALK PHOS 37, CRP 14.50, BNP 153, ALBUMIN 2.4. BLOOD CULTURES ARE PENDING. ABG REVEALED: PH 7.430, PC02 38, P02 51, HC03 25.2, 02 SAT 87, A-A GRADIENT 458, FI02 78.0. A CHEST XRAY WAS OBTAINED AND REVEALED: Card iac and mediastinal contours are within normal limits. No significant change in bilateral airspace and interstitial opacities. No definite pleural effusion or pneumothorax. Soft tissue attenuation limits evaluation. HE IS CURRENTLY RECEIVING NS AT 75 ML/HR, REMDESIVIR 100MG IV DAILY, LEVAQUIN 500MG IV DAILY, AITHROMYCIN 500MG IV DAILY, SOLU-MEDROL 80MG IV Q8H, IVERMECTIN 15MG PO DAILY X 5 DAYS, PROTONIX 40MG PO BID, PEPCID 20MG PO BID, THIAMINE 200MG IV BID, ZINC 220MG PO DAILY, SINGULAIR 10MG PO HS, ZYRTEC 10MG PO DAILY, OTBS ACHS, HUMULIN R SLIDING SCALE, MELATONIN 10MG PO HS, ROBITUSSIN DM 10ML PO QID PRN, LOVENOX 40MG SC DAILY, PERIACTIN 8MG PO TID, PULMICORT NEBS BID, ALBUTEROL NEBS QID, BROVANA INHALER BID, TESSALON PERLES 200MG PO TID, LIPITOR 80MG PH HS, ASCORBIC ACID 1500MG IV Q6H, FLUVOXAMINE 50MG PO BID, ZOFRAN 4MG IV Q4H PRN NAUSEA, AMBIEN 5MG PO HS PRN, AND MAGIC MOUTHWASH QID. HIS HOME MEDICATIONS OF CELEBREX, SYNTHROID, DITROPAN, AND LYRICA WERE ALSO RESUMED. WE WILL CONTINUE WITH CURRENT PLAN OF CARE TODAY. OTHERWISE, WE WILL FOLLOW UP WITH AM LABS, CHEST XRAY, ABG, AND CONTINUE TO MONITOR. TIME SPENT ON CLINICAL ASSESSMENT, REVIEWING LABS AND IMAGING, DECISION MAKING, AND DOCUMENTATION GREATER THAN 45 MINUTES. - Past Medical Family Social History Past Med/Fam/Surg Hx: No changes since H&P Allergies: Allergies No Known Drug Allergies Allergy (Verified 01/06/21 14:36) - Review of Systems ROS: No change since H&P - Vital Signs and I&O's Vital Signs: Temperature 97.9 F Pulse Rate [Left Brachial] 65 Pulse Rate [Apical] 66 Pulse Rate 62 Respiratory Rate 21 Blood Pressure [Left Arm] 161/77 Blood Pressure 157/77 O2 Sat by Pulse Oximetry 88 Intake and Output: Intake & Output 01/05/21 01/06/21 01/07/21 01/08/21 11:59 11:59 11:59 11:59 Intake Total 2311 / 2311 1560 / 1560 Output Total 975 / 975 Balance 1336 / 1336 1560 / 1560 - Physical Exam Oriented: Normal Eyes: Normal Ear: Normal Nose: Normal Throat: Normal Respiratory: Generalized, Rales Cardiovascular: Normal : Normal Auscultation: Bowel Sounds: Normal Tenderness: Normal Skin: Normal Musculoskeletal: Normal Psychiatric: Normal Mood Description: Calm Affect: Normal Speech Pattern: Clear - Laboratory and Diagnostics Result Diagrams: 01/08/21 04:47 01/08/21 04:47 Labs: Laboratory WBC 15.8 X10^3/uL (3.6-10.0) H 01/08/21 04:47 RBC 4.38 X10^6/uL (4.7-6.0) L 01/08/21 04:47 Hgb 12.2 g/dL (13.5-18.0) L 01/08/21 04:47 Hct 36.8 % (42.0-54.0) L 01/08/21 04:47 MCV 83.9 fL (80.0-100.0) 01/08/21 04:47 MCH 28.0 pg (27.0-34.0) 01/08/21 04:47 MCHC 33.3 g/dL (33.0-35.0) 01/08/21 04:47 RDW 14.1 % (11.6-16.5) 01/08/21 04:47 Plt Count 380 X10^3/uL (150.0-450.0) 01/08/21 04:47 Plt Count Comment Adequate (ADEQUATE) 01/08/21 04:47 MPV 9.1 fL (7.4-11.0) 01/08/21 04:47 Neut % (Auto) 91.5 % (42.0-75.0) H 01/08/21 04:47 Lymph % (Auto) 3.1 % (21.0-51.0) L 01/08/21 04:47 Boyle % (Auto) 4.8 % (0.0-13.0) 01/08/21 04:47 Eos % (Auto) 0.0 % (0.9-2.9) L 01/08/21 04:47 Baso % (Auto) 0.6 % (0.2-1.0) 01/08/21 04:47 Neut # (Auto) 14.5 x10^3/uL (2.2-4.8) H 01/08/21 04:47 Lymph # (Auto) 0.5 X10^3/uL (1.3-2.9) L 01/08/21 04:47 Boyle # (Auto) 0.8 x10^3/uL (0.3-0.8) 01/08/21 04:47 Eos # (Auto) 0.0 x10^3/uL (0.0-0.2) 01/08/21 04:47 Baso # (Auto) 0.1 X10^3/uL (0.0-0.1) 01/08/21 04:47 Absolute Nucleated RBC 0.0 /100WBC 01/08/21 04:47 Total Counted 100 01/08/21 04:47 Neutrophils % (Manual) 91 % (39-76) H 01/08/21 04:47 Band Neutrophils % 4 % (0-10) 01/07/21 03:47 Lymphocytes % (Manual) 5 % (13-43) L 01/08/21 04:47 Monocytes % (Manual) 2 % (4-9) L 01/07/21 03:47 Metamyelocytes % 2 01/08/21 04:47 Plt Morphology Comment Normal (NORMAL) 01/08/21 04:47 RBC Morphology Normal (NORMAL) 01/08/21 04:47 D-Dimer 0.51 ug/ml (0.0-0.57) 01/08/21 04:47 Sample Site L-rad 01/08/21 05:50 ABG pH 7.430 (7.35-7.45) 01/08/21 05:50 ABG pCO2 38.0 mmHg (35.0-45.0) 01/08/21 05:50 ABG pO2 51.0 mmHg (80.0-100.0) L 01/08/21 05:50 ABG HCO3 25.2 mmol/L (22-26) 01/08/21 05:50 ABG O2 Saturation 87.0 % (90-100) L 01/08/21 05:50 ABG Base Excess 1.0 mmol/L (-2.0-2.0) 01/08/21 05:50 Mello Test Poss 01/08/21 05:50 A-a Gradient 458.0 mmHg 01/08/21 05:50 FiO2 78.0 01/08/21 05:50 Blood Gas Comments Andi well 01/08/21 05:50 Sodium 145 mmol/L (136-145) 01/08/21 04:47 Corrected Sodium 149 mmol/L (136-145) H 01/08/21 04:47 Potassium 4.3 mmol/L (3.5-5.1) 01/08/21 04:47 Chloride 111 mmol/L (98-107) H 01/08/21 04:47 Carbon Dioxide 26.4 mmol/L (21-32) 01/08/21 04:47 BUN 37 mg/dL (7-18) H 01/08/21 04:47 Creatinine 1.19 mg/dL (0.70-1.30) 01/08/21 04:47 Est GFR (MDRD) Af Amer > 60 (>60) 01/08/21 04:47 Est GFR (MDRD) Non-Af > 60 (>60) 01/08/21 04:47 Glucose 270 mg/dL (65-99) H 01/08/21 04:47 Lactic Acid 2.5 mmol/L (0.4-2.0) H 01/06/21 15:35 Calcium 8.6 mg/dL (8.5-10.1) 01/08/21 04:47 Corrected Calcium 9.9 mg/dL (8.5-10.1) 01/08/21 04:47 Ferritin 495 ng/mL (26-388) H 01/08/21 04:47 Total Bilirubin 0.30 mg/dL (0.2-1.0) 01/08/21 04:47 AST 48 Units/L (15-37) H 01/08/21 04:47 ALT 40 Units/L (12-78) 01/08/21 04:47 Alkaline Phosphatase 37 Units/L (46-116) L 01/08/21 04:47 Creatine Kinase 357 Units/L (39-308) H 01/06/21 18:29 CK-MB (CK-2) 2.7 ng/mL (0-4.0) 01/06/21 18:29 CK/CKMB % Calc 0.8 % (<4) 01/06/21 18:29 Troponin I < 0.02 ng/mL (0-1.5) 01/06/21 18:29 C-Reactive Protein 14.50 mg/L (0-3.0) H 01/08/21 04:47 B-Natriuretic Peptide 153 pg/mL (0-79) H 01/08/21 04:47 Total Protein 6.4 g/dL (6.4-8.2) 01/08/21 04:47 Albumin 2.4 g/dL (3.4-5.0) L 01/08/21 04:47 Globulin 4.0 g/dL (2.5-4.5) 01/08/21 04:47 Albumin/Globulin Ratio 0.6 Ratio (1.1-2.1) L 01/08/21 04:47 - Plan (1) Pneumonia due to COVID-19 virus Status: Acute Plan: SUPPLEMENTAL OXYGEN, IV FLUIDS, IV REMDESIVIR, IV ANTIBIOTICS, SOLU- MEDROL, RESPIRATORY THERAPY, RESPIRATORY TX (2) Hypoxia Status: Acute
[2021-01-08] MEDS: ACCUNEB 1.25 MG NEBULE NEB SCH ×3 (12:40→21:29)
[2021-01-08] MEDS: ZITHROMAX INJ 500 MG VIAL 500 MG in NS 250 ML IV 250 ML IV SCH (13:46)
[2021-01-08] MEDS ORDERED: NS 1/2 1000 ML IV 1,000 ML IV ONE (16:43)
[2021-01-08] MEDS: SNACK - Diabetic Appropriate PO SCH (20:00)
[2021-01-08] MEDS: LIPITOR TAB 80 MG PO SCH (21:00)
[2021-01-08] MEDS: MELATONIN PO SCH (21:00)
[2021-01-08] MEDS: IVERMECTIN PO SCH (21:00)
[2021-01-08] MEDS: CELEBREX PO SCH (21:00)
[2021-01-08] MEDS: SINGULAIR TAB 10 MG PO SCH (21:00)
[2021-01-09] MEDS: ASCORBIC ACID INJ MULTI-DOSE VIAL 1,500 MG in NS 50 ML IV 50 ML IV SCH ×4 (03:56→21:29)
[2021-01-09 05:06] LABS: ABG ALLEN TEST POS; ABG BASE EXCESS 1.5 mmol/L (-2.0-2.0); ABG HCO3 26.6 mmol/L (22-26)
[2021-01-09] MEDS: SOLU-Medrol 40 MG VIAL IVP SCH ×3 (05:29→21:32)
[2021-01-09] MEDS: TESSALON PERLES PO SCH ×3 (05:29→21:32)
[2021-01-09] MEDS: PERIACTIN TAB 4 MG PO SCH ×3 (05:29→21:30)
--- NOTE | 2021-01-09 05:36 | RAD ---
PROCEDURE: Chest X-ray 1 View .HISTORY: Dyspnea.TECHNIQUE: AP view .COMPARISON: 01/08/2021.TECHNICAL QUALITY: Satisfactory .FINDINGS:Unchanged heart size upper limits of normal.Normal central vascularity.Bilateral patchy pneumonia greatest left midlung field similar to previous study with no pleural fluid or pneumothorax. Unchanged elevated right hemidiaphragm.IMPRESSION:Unchanged bilateral pneumonia.Electronically signed by: Jeffery Valdez (Jan 09, 2021 05:34:37)
[2021-01-09] MEDS ORDERED: NS 1/2 1000 ML IV 1,000 ML IV ONE ×2 (05:42→19:23)
[2021-01-09 06:19] LABS: BASOPHILS % (AUTO) 0.1 % (0.2-1.0); HEMATOCRIT 37.2 % (42.0-54.0); HEMOGLOBIN 12.2 g/dL (13.5-18.0); LYMPHOCYTES # (AUTO) 0.5 X10^3/uL (1.3-2.9); LYMPHOCYTES % (AUTO) 2.6 % (21.0-51.0); MEAN CORPUSCULAR HEMOGLOBIN 27.6 pg (27.0-34.0); MEAN CORPUSCULAR HGB CONC 32.7 g/dL (33.0-35.0); MEAN CORPUSCULAR VOLUME 84.6 fL (80.0-100.0); MEAN PLATELET VOLUME 9.1 fL (7.4-11.0); MONOCYTES # (AUTO) 0.6 x10^3/uL (0.3-0.8); MONOCYTES % (AUTO) 3.3 % (0.0-13.0); NEUTROPHILS # (AUTO) 17.6 x10^3/uL (2.2-4.8); PLATELET COUNT 369 X10^3/uL (150.0-450.0); RED CELL DISTRIBUTION WIDTH 13.8 % (11.6-16.5); WHITE BLOOD COUNT 18.7 X10^3/uL (3.6-10.0)
[2021-01-09] MEDS: NS 1/2 1000 ML IV 1,000 ML IV SCH ×2 (06:28)
[2021-01-09] MEDS: HumuLIN R SUBCUT PRN ×4 (06:29→21:34)
[2021-01-09 06:51] LABS: ALANINE AMINOTRANSFERASE 41 Units/L (12-78); ALBUMIN 2.3 g/dL (3.4-5.0); ALKALINE PHOSPHATASE 39 Units/L (46-116); ASPARTATE AMINO TRANSFERASE 32 Units/L (15-37); BLOOD UREA NITROGEN 33 mg/dL (7-18); CALCIUM 8.5 mg/dL (8.5-10.1); CARBON DIOXIDE 26.4 mmol/L (21-32); CHLORIDE 109 mmol/L (98-107); COR CA(FOR HYPOALB) 9.9 mg/dL (8.5-10.1); COR NA(FOR HYPERGLY) 145 mmol/L (136-145); CREATININE 1.13 mg/dL (0.70-1.30); SODIUM 142 mmol/L (136-145); TOTAL PROTEIN 5.8 g/dL (6.4-8.2); eGFR NON BLACK RACES > 60 (>60)
[2021-01-09 07:07] LABS: BAND NEUTROPHILS % 1 % (0-10); PLATELET MORPHOLOGY COMMENT NORMAL (NORMAL)
[2021-01-09] MEDS: QUINAPRIL 40 MG PO SCH ×2 (09:24→21:33)
[2021-01-09] MEDS: PRASTERONE 25 MG PO SCH (09:24)
[2021-01-09] MEDS: SITAGLIPTIN METFORMIN PO SCH (09:25)
[2021-01-09] MEDS: [UNRECOGNIZED DRUG - OTHER] PO SCH (09:25)
[2021-01-09] MEDS: [UNRECOGNIZED DRUG - OTHER] PO SCH (09:25)
[2021-01-09] MEDS: FENOFIBRATE 50 MG PO SCH (09:25)
[2021-01-09] MEDS: MULT PO SCH (09:25)
[2021-01-09] MEDS: VITAMIN D3 125 mcg (5,000 UNITS) PO SCH (09:26)
[2021-01-09] MEDS: AVODART PO SCH (09:26)
[2021-01-09] MEDS: MICRO K EXTEN CAP 10 MEQ PO SCH (09:26)
[2021-01-09] MEDS: PROTONIX TAB 40 MG PO SCH ×2 (09:26→21:31)
[2021-01-09] MEDS: ZINC SULFATE PO SCH (09:26)
[2021-01-09] MEDS: FLUVOXAMINE MALEATE PO SCH ×2 (09:26→21:30)
[2021-01-09] MEDS: PEPCID TAB 20 MG PO SCH ×2 (09:27→21:31)
[2021-01-09] MEDS: LYRICA CAP 150 mg PO SCH (09:27)
[2021-01-09] MEDS: ZyrTEC TAB 10 MG PO SCH (09:27)
[2021-01-09] MEDS ORDERED: LASIX IVP ONE (09:27)
[2021-01-09] MEDS: DITROPAN TAB 5 MG PO SCH (09:27)
[2021-01-09] MEDS: REMDESIVIR 100 MG in NS 250 ML IV 250 ML IV SCH (09:28)
[2021-01-09] MEDS: MAGIC MOUTHWASH MT SCH ×4 (09:28→21:33)
[2021-01-09] MEDS ORDERED: K-DUR TAB 20 MEQ PO ONE (09:29)
[2021-01-09] MEDS: THIAMINE HCL INJ IVP SCH ×2 (09:29→21:32)
[2021-01-09] MEDS: SYNTHROID 50 mcg TAB PO SCH (09:29)
[2021-01-09] MEDS: PULMICORT NEB TX 0.5 MG NEB SCH ×2 (09:40→21:06)
[2021-01-09] MEDS: ACCUNEB 1.25 MG NEBULE NEB SCH ×4 (09:40→21:06)
[2021-01-09] MEDS: BROVANA IN SCH ×2 (09:40→21:06)
[2021-01-09] MEDS: LOVENOX INJ 40 MG SYR SC SCH (09:47)
[2021-01-09] MEDS: LEVAQUIN PREMIX IV 500 MG 500 MG/100 ML BAG IV SCH (12:19)
[2021-01-09] MEDS: ZITHROMAX INJ 500 MG VIAL 500 MG in NS 250 ML IV 250 ML IV SCH (13:50)
[2021-01-09] MEDS: SNACK - Diabetic Appropriate PO SCH (20:00)
[2021-01-09] MEDS: IVERMECTIN PO SCH (21:30)
[2021-01-09] MEDS: CELEBREX PO SCH (21:31)
[2021-01-09] MEDS: SINGULAIR TAB 10 MG PO SCH (21:31)
[2021-01-09] MEDS: MELATONIN PO SCH (21:31)
[2021-01-09] MEDS: LIPITOR TAB 80 MG PO SCH (21:32)
[2021-01-10] MEDS: NS 1/2 1000 ML IV 1,000 ML IV SCH ×3 (00:06→17:24)
[2021-01-10] MEDS: ASCORBIC ACID INJ MULTI-DOSE VIAL 1,500 MG in NS 50 ML IV 50 ML IV SCH ×4 (02:29→21:34)
[2021-01-10 05:03] LABS: ABG BASE EXCESS 6.1 mmol/L (-2.0-2.0)
[2021-01-10 05:04] LABS: ABG ALLEN TEST POS; ABG HCO3 31.2 mmol/L (22-26)
[2021-01-10] MEDS: SOLU-Medrol 40 MG VIAL IVP SCH ×3 (05:22→21:35)
[2021-01-10] MEDS: PERIACTIN TAB 4 MG PO SCH ×3 (05:22→21:35)
[2021-01-10] MEDS: TESSALON PERLES PO SCH ×3 (05:22→21:36)
[2021-01-10 05:39] LABS: BASOPHILS # (AUTO) 0.1 X10^3/uL (0.0-0.1); BASOPHILS % (AUTO) 0.4 % (0.2-1.0); HEMATOCRIT 36.1 % (42.0-54.0); HEMOGLOBIN 11.9 g/dL (13.5-18.0); LYMPHOCYTES # (AUTO) 0.5 X10^3/uL (1.3-2.9); LYMPHOCYTES % (AUTO) 2.6 % (21.0-51.0); MEAN CORPUSCULAR HEMOGLOBIN 27.7 pg (27.0-34.0); MEAN CORPUSCULAR HGB CONC 32.8 g/dL (33.0-35.0); MEAN CORPUSCULAR VOLUME 84.3 fL (80.0-100.0); MEAN PLATELET VOLUME 8.9 fL (7.4-11.0); MONOCYTES # (AUTO) 0.9 x10^3/uL (0.3-0.8); MONOCYTES % (AUTO) 4.7 % (0.0-13.0); NEUTROPHILS # (AUTO) 16.8 x10^3/uL (2.2-4.8); NEUTROPHILS % (AUTO) 92.3 % (42.0-75.0); PLATELET COUNT 328 X10^3/uL (150.0-450.0); RED BLOOD COUNT 4.29 X10^6/uL (4.7-6.0); RED CELL DISTRIBUTION WIDTH 13.7 % (11.6-16.5); WHITE BLOOD COUNT 18.2 X10^3/uL (3.6-10.0)
[2021-01-10 05:47] LABS: ALANINE AMINOTRANSFERASE 38 Units/L (12-78); ALBUMIN 2.2 g/dL (3.4-5.0); ALKALINE PHOSPHATASE 44 Units/L (46-116); ASPARTATE AMINO TRANSFERASE 23 Units/L (15-37); BLOOD UREA NITROGEN 37 mg/dL (7-18); CALCIUM 8.3 mg/dL (8.5-10.1); CARBON DIOXIDE 30.1 mmol/L (21-32); CHLORIDE 107 mmol/L (98-107); COR CA(FOR HYPOALB) 9.7 mg/dL (8.5-10.1); COR NA(FOR HYPERGLY) 145 mmol/L (136-145); CREATININE 1.15 mg/dL (0.70-1.30); SODIUM 142 mmol/L (136-145); TOTAL PROTEIN 5.6 g/dL (6.4-8.2); eGFR NON BLACK RACES > 60 (>60)
[2021-01-10] MEDS: HumuLIN R SUBCUT PRN ×3 (05:55→21:38)
[2021-01-10 06:05] LABS: BAND NEUTROPHILS % 2 % (0-10); PLATELET MORPHOLOGY COMMENT NORMAL (NORMAL)
[2021-01-10] MEDS: FENOFIBRATE 50 MG PO SCH (09:16)
[2021-01-10] MEDS: PRASTERONE 25 MG PO SCH (09:17)
[2021-01-10] MEDS: PULMICORT NEB TX 0.5 MG NEB SCH ×2 (09:17→21:08)
[2021-01-10] MEDS: BROVANA IN SCH ×2 (09:17→21:08)
[2021-01-10] MEDS: [UNRECOGNIZED DRUG - OTHER] PO SCH (09:17)
[2021-01-10] MEDS: ACCUNEB 1.25 MG NEBULE NEB SCH ×3 (09:17→21:08)
[2021-01-10] MEDS: SITAGLIPTIN METFORMIN PO SCH (09:18)
[2021-01-10] MEDS: MULT PO SCH (09:18)
[2021-01-10] MEDS: VITAMIN D3 125 mcg (5,000 UNITS) PO SCH (09:18)
[2021-01-10] MEDS: AVODART PO SCH (09:18)
[2021-01-10] MEDS: SYNTHROID 50 mcg TAB PO SCH (09:18)
[2021-01-10] MEDS: QUINAPRIL 40 MG PO SCH ×2 (09:18→21:37)
[2021-01-10] MEDS: DITROPAN TAB 5 MG PO SCH (09:18)
[2021-01-10] MEDS: [UNRECOGNIZED DRUG - OTHER] PO SCH (09:18)
[2021-01-10] MEDS: PROTONIX TAB 40 MG PO SCH ×2 (09:19→21:36)
[2021-01-10] MEDS: ZyrTEC TAB 10 MG PO SCH (09:19)
[2021-01-10] MEDS: ZINC SULFATE PO SCH (09:19)
[2021-01-10] MEDS: FLUVOXAMINE MALEATE PO SCH ×2 (09:19→21:36)
[2021-01-10] MEDS: PEPCID TAB 20 MG PO SCH ×2 (09:19→21:36)
[2021-01-10] MEDS: MICRO K EXTEN CAP 10 MEQ PO SCH (09:20)
[2021-01-10] MEDS: LYRICA CAP 150 mg PO SCH (09:20)
[2021-01-10] MEDS: THIAMINE HCL INJ IVP SCH ×2 (09:20→21:38)
[2021-01-10] MEDS: ROBITUSSIN DM PO PRN (09:20)
[2021-01-10] MEDS: MAGIC MOUTHWASH MT SCH ×4 (09:21→21:37)
[2021-01-10] MEDS: LEVAQUIN PREMIX IV 500 MG 500 MG/100 ML BAG IV SCH (10:30)
--- NOTE | 2021-01-10 11:37 | RAD ---
HISTORYSOB HTN, DM, SPINE, ORTHOSTUDYCHEST, 1 [id number] lung opacities, left greater than right, not significantly changed. No large effusion or pneumothorax. The cardiac silhouette is stable.IMPRESSIONNo significant change from the prior.Electronically signed by: LAUREN STEWART (Jan 10, 2021 11:35:35)
[2021-01-10] MEDS: ZITHROMAX INJ 500 MG VIAL 500 MG in NS 250 ML IV 250 ML IV SCH (12:14)
[2021-01-10] MEDS: TOPROL XL PO SCH (14:00)
[2021-01-10] MEDS: LOVENOX INJ 60 MG SYR SC SCH ×2 (14:00→21:34)
[2021-01-10] MEDS ORDERED: NS 1/2 1000 ML IV 1,000 ML IV ONE (19:10)
[2021-01-10] MEDS: IVERMECTIN PO SCH (21:34)
[2021-01-10] MEDS: MELATONIN PO SCH (21:35)
[2021-01-10] MEDS: LIPITOR TAB 80 MG PO SCH (21:36)
[2021-01-10] MEDS: SINGULAIR TAB 10 MG PO SCH (21:36)
[2021-01-10] MEDS: CELEBREX PO SCH (21:36)
[2021-01-11] MEDS: ASCORBIC ACID INJ MULTI-DOSE VIAL 1,500 MG in NS 50 ML IV 50 ML IV SCH ×4 (02:18→21:50)
[2021-01-11] MEDS: NS 1/2 1000 ML IV 1,000 ML IV SCH ×3 (02:18→19:06)
[2021-01-11 04:53] LABS: ABG BASE EXCESS 6.4 mmol/L (-2.0-2.0)
[2021-01-11 04:54] LABS: ABG ALLEN TEST POS; ABG HCO3 31.3 mmol/L (22-26)
[2021-01-11] MEDS: PERIACTIN TAB 4 MG PO SCH ×3 (05:21→21:49)
[2021-01-11] MEDS: SOLU-Medrol 40 MG VIAL IVP SCH ×3 (05:21→21:50)
[2021-01-11] MEDS: TESSALON PERLES PO SCH ×3 (05:21→21:49)
[2021-01-11] MEDS: HumuLIN R SUBCUT PRN (05:33)
[2021-01-11 06:30] LABS: BASOPHILS % (AUTO) 0.2 % (0.2-1.0); HEMATOCRIT 38.7 % (42.0-54.0); HEMOGLOBIN 12.9 g/dL (13.5-18.0); LYMPHOCYTES # (AUTO) 0.4 X10^3/uL (1.3-2.9); LYMPHOCYTES % (AUTO) 2.1 % (21.0-51.0); MEAN CORPUSCULAR HEMOGLOBIN 28.1 pg (27.0-34.0); MEAN CORPUSCULAR HGB CONC 33.4 g/dL (33.0-35.0); MEAN PLATELET VOLUME 9.2 fL (7.4-11.0); MONOCYTES # (AUTO) 0.9 x10^3/uL (0.3-0.8); MONOCYTES % (AUTO) 4.4 % (0.0-13.0); NEUTROPHILS # (AUTO) 19.8 x10^3/uL (2.2-4.8); NEUTROPHILS % (AUTO) 93.3 % (42.0-75.0); PLATELET COUNT 368 X10^3/uL (150.0-450.0); RED BLOOD COUNT 4.61 X10^6/uL (4.7-6.0); RED CELL DISTRIBUTION WIDTH 13.8 % (11.6-16.5); WHITE BLOOD COUNT 21.2 X10^3/uL (3.6-10.0)
[2021-01-11 06:48] LABS: ALANINE AMINOTRANSFERASE 42 Units/L (12-78); ALBUMIN 2.4 g/dL (3.4-5.0); ALKALINE PHOSPHATASE 61 Units/L (46-116); ASPARTATE AMINO TRANSFERASE 28 Units/L (15-37); BLOOD UREA NITROGEN 36 mg/dL (7-18); CALCIUM 8.8 mg/dL (8.5-10.1); CARBON DIOXIDE 32.2 mmol/L (21-32); CHLORIDE 108 mmol/L (98-107); COR CA(FOR HYPOALB) 10.1 mg/dL (8.5-10.1); COR NA(FOR HYPERGLY) 144 mmol/L (136-145); CREATININE 1.07 mg/dL (0.70-1.30); SODIUM 141 mmol/L (136-145); TOTAL PROTEIN 5.8 g/dL (6.4-8.2); eGFR NON BLACK RACES > 60 (>60)
--- NOTE | 2021-01-11 07:49 | RAD ---
HISTORYCOVID PNEUMONIA Relevant Clinical InformationSTUDYCHEST, 1 [id number] lung opacities, left greater than right, are similar to the prior. The cardiac silhouette is stable. No evidence for pneumothorax.IMPRESSIONNo significant inter carlyle change.Electronically signed by: LAUREN STEWART (Jan 11, 2021 07:47:59)
[2021-01-11 08:04] LABS: BAND NEUTROPHILS % 1 % (0-10)
[2021-01-11 08:05] LABS: METAMYELOCYTES % 2; PLATELET MORPHOLOGY COMMENT NORMAL (NORMAL)
[2021-01-11] MEDS: ACCUNEB 1.25 MG NEBULE NEB SCH ×5 (08:59→21:00)
[2021-01-11] MEDS: PULMICORT NEB TX 0.5 MG NEB SCH ×2 (08:59→21:00)
[2021-01-11] MEDS: BROVANA IN SCH ×2 (08:59→21:00)
[2021-01-11] MEDS: LOVENOX INJ 60 MG SYR SC SCH ×2 (11:17→21:50)
[2021-01-11] MEDS: LEVAQUIN PREMIX IV 500 MG 500 MG/100 ML BAG IV SCH (11:17)
[2021-01-11] MEDS: ROBITUSSIN DM PO PRN (11:17)
[2021-01-11] MEDS: THIAMINE HCL INJ IVP SCH ×2 (11:18→21:50)
[2021-01-11] MEDS: PEPCID TAB 20 MG PO SCH ×2 (11:19→21:48)
[2021-01-11] MEDS: ZINC SULFATE PO SCH (11:19)
[2021-01-11] MEDS: ZyrTEC TAB 10 MG PO SCH (11:19)
[2021-01-11] MEDS: VITAMIN D3 125 mcg (5,000 UNITS) PO SCH (11:19)
[2021-01-11] MEDS: LYRICA CAP 150 mg PO SCH (11:20)
[2021-01-11] MEDS: SYNTHROID 50 mcg TAB PO SCH (11:20)
[2021-01-11] MEDS: FLUVOXAMINE MALEATE PO SCH ×2 (11:21→21:49)
[2021-01-11] MEDS: DITROPAN TAB 5 MG PO SCH (11:21)
[2021-01-11] MEDS: MULT PO SCH (11:21)
[2021-01-11] MEDS: SITAGLIPTIN METFORMIN PO SCH (11:21)
[2021-01-11] MEDS: [UNRECOGNIZED DRUG - OTHER] PO SCH (11:21)
[2021-01-11] MEDS: FENOFIBRATE 50 MG PO SCH (11:21)
[2021-01-11] MEDS: TOPROL XL PO SCH (11:21)
[2021-01-11] MEDS: AVODART PO SCH (11:21)
[2021-01-11] MEDS: [UNRECOGNIZED DRUG - OTHER] PO SCH (11:21)
[2021-01-11] MEDS: QUINAPRIL 40 MG PO SCH ×2 (11:21→21:52)
[2021-01-11] MEDS: MICRO K EXTEN CAP 10 MEQ PO SCH (11:21)
[2021-01-11] MEDS: PRASTERONE 25 MG PO SCH (11:21)
[2021-01-11] MEDS: MAGIC MOUTHWASH MT SCH ×4 (11:22→21:51)
[2021-01-11] MEDS: PROTONIX TAB 40 MG PO SCH ×2 (11:22→21:48)
[2021-01-11] MEDS ORDERED: NS 1/2 1000 ML IV 1,000 ML IV ONE (18:46)
[2021-01-11] MEDS: LIPITOR TAB 80 MG PO SCH (21:48)
[2021-01-11] MEDS: SINGULAIR TAB 10 MG PO SCH (21:48)
[2021-01-11] MEDS: MELATONIN PO SCH (21:49)
[2021-01-11] MEDS: CELEBREX PO SCH (21:49)
[2021-01-12] MEDS: ASCORBIC ACID INJ MULTI-DOSE VIAL 1,500 MG in NS 50 ML IV 50 ML IV SCH ×4 (02:20→21:12)
[2021-01-12 05:31] LABS: BASOPHILS # (AUTO) 0.1 X10^3/uL (0.0-0.1); BASOPHILS % (AUTO) 0.3 % (0.2-1.0); EOSINOPHILS # (AUTO) 0.1 x10^3/uL (0.0-0.2); EOSINOPHILS % (AUTO) 0.5 % (0.9-2.9); HEMATOCRIT 39.4 % (42.0-54.0); HEMOGLOBIN 13.1 g/dL (13.5-18.0); LYMPHOCYTES # (AUTO) 0.4 X10^3/uL (1.3-2.9); LYMPHOCYTES % (AUTO) 1.7 % (21.0-51.0); MEAN CORPUSCULAR HEMOGLOBIN 27.7 pg (27.0-34.0); MEAN CORPUSCULAR HGB CONC 33.1 g/dL (33.0-35.0); MEAN CORPUSCULAR VOLUME 83.5 fL (80.0-100.0); MEAN PLATELET VOLUME 9.2 fL (7.4-11.0); MONOCYTES # (AUTO) 0.7 x10^3/uL (0.3-0.8); MONOCYTES % (AUTO) 2.9 % (0.0-13.0); NEUTROPHILS # (AUTO) 21.7 x10^3/uL (2.2-4.8); NEUTROPHILS % (AUTO) 94.6 % (42.0-75.0); PLATELET COUNT 433 X10^3/uL (150.0-450.0); RED BLOOD COUNT 4.72 X10^6/uL (4.7-6.0); RED CELL DISTRIBUTION WIDTH 13.6 % (11.6-16.5); WHITE BLOOD COUNT 22.9 X10^3/uL (3.6-10.0)
[2021-01-12 05:43] LABS: BLOOD UREA NITROGEN 37 mg/dL (7-18); CALCIUM 8.7 mg/dL (8.5-10.1); CHLORIDE 106 mmol/L (98-107); COR NA(FOR HYPERGLY) 145 mmol/L (136-145); CREATININE 1.07 mg/dL (0.70-1.30); SODIUM 142 mmol/L (136-145); eGFR NON BLACK RACES > 60 (>60)
[2021-01-12] MEDS: PERIACTIN TAB 4 MG PO SCH ×3 (06:00→21:10)
[2021-01-12] MEDS: SOLU-Medrol 40 MG VIAL IVP SCH ×3 (06:00→21:11)
[2021-01-12] MEDS: HumuLIN R SUBCUT PRN ×3 (06:01→21:13)
[2021-01-12] MEDS: TESSALON PERLES PO SCH ×3 (06:01→21:10)
[2021-01-12 06:16] LABS: ABG ALLEN TEST POS; ABG BASE EXCESS 4.1 mmol/L (-2.0-2.0); ABG HCO3 28.5 mmol/L (22-26)
[2021-01-12 06:20] LABS: BAND NEUTROPHILS % 1 % (0-10); PLATELET MORPHOLOGY COMMENT NORMAL (NORMAL)
--- NOTE | 2021-01-12 06:26 | RAD ---
HISTORYSOBSTUDYCHEST, 1 VIEWCOMPARISONOne day prior.TECHNIQUEAP view of the chestFINDINGSCardiac and mediastinal contours are within normal limits. No significant change in bilateral airspace and interstitial opacities. No definite pleural effusion or pneumothorax.IMPRESSIONNo significant change.Electronically signed by: Dick Banegas (Jan 12, 2021 06:24:54)
[2021-01-12] MEDS: PULMICORT NEB TX 0.5 MG NEB SCH ×2 (09:22→20:40)
[2021-01-12] MEDS: ACCUNEB 1.25 MG NEBULE NEB SCH ×4 (09:22→20:40)
[2021-01-12] MEDS: BROVANA IN SCH ×2 (09:22→20:40)
[2021-01-12] MEDS ORDERED: NS 1/2 1000 ML IV 1,000 ML IV ONE ×2 (10:49→19:24)
[2021-01-12] MEDS: NS 1/2 1000 ML IV 1,000 ML IV SCH ×2 (10:50→18:00)
[2021-01-12] MEDS: LOVENOX INJ 60 MG SYR SC SCH ×2 (11:41→21:11)
[2021-01-12] MEDS: THIAMINE HCL INJ IVP SCH ×2 (11:42→21:12)
[2021-01-12] MEDS: AVODART PO SCH (11:43)
[2021-01-12] MEDS: TOPROL XL PO SCH (11:43)
[2021-01-12] MEDS: FLUVOXAMINE MALEATE PO SCH ×2 (11:44→21:10)
[2021-01-12] MEDS: DITROPAN TAB 5 MG PO SCH (11:44)
[2021-01-12] MEDS: LYRICA CAP 150 mg PO SCH (11:45)
[2021-01-12] MEDS: MAGIC MOUTHWASH MT SCH ×4 (11:45→21:12)
[2021-01-12] MEDS: MICRO K EXTEN CAP 10 MEQ PO SCH (11:46)
[2021-01-12] MEDS: PEPCID TAB 20 MG PO SCH ×2 (11:47→21:10)
[2021-01-12] MEDS: ZyrTEC TAB 10 MG PO SCH (11:47)
[2021-01-12] MEDS: PROTONIX TAB 40 MG PO SCH ×2 (11:48→21:11)
[2021-01-12] MEDS: VITAMIN D3 125 mcg (5,000 UNITS) PO SCH (11:48)
[2021-01-12] MEDS: SYNTHROID 50 mcg TAB PO SCH (11:48)
[2021-01-12] MEDS: ZINC SULFATE PO SCH (11:49)
--- NOTE | 2021-01-12 12:35 | PCM.PROG ---
Progress Note - Progress Note for Day of Date of Exam: 01/12/21 - Subjective Subjective: MR. STEVENSON WAS ADMITTED FOR TREATMENT OF COVID PNEUMONIA AND HYPOXIA. TODAY, HE IS ALERT AND ORIENTED, SITTING UP IN THE BED ON MORNING ROUNDS. HE CONTINUES WITH COMPLAINTS OF INTERMITTENT COUGH, SHORTNESS OF BREATH, AND WEAKNESS TODAY, BUT DOES REPORT SLIGHT IMPROVEMENT IN SYMPTOMS. HE REMAINS HEATED HIGH FLOW OXYGEN AT 70%. HIS OXYGEN SATURATIONS HAVE BEEN ANYWHERE FROM 90-94% WHILE ON HEATED HIGH FLOW. ON EXAMINATION, HEART IS REGULAR IN RATE AND RHYTHM. BILATERAL LUNGS ARE NOTED WITH RALES THROUGHOUT. ABDOMEN IS ROUND, SOFT, AND NON-TENDER WITH NORMAL BOWEL SOUNDS NOTED IN ALL QUADRANTS. HIS VITALS THIS MORNING ARE: 97.9-67-18-90%HHF-194/92. LABS WERE OBTAINED. ABNORMAL LAB VALUES INCLUDE THE FOLLOWING: WBC 22.9, HGB 13.1, HCT 39.4, D-DIMER 2.64, BUN 37, GLUCOSE 238, BNP 156. ABG REVEALED: PH 7.450, PC02 41, P02 59, HC03 28.5, 02 SAT 91, BASE EXCESS 4.1, A-A GRADIENT 389, FI02 70. A CHEST XRAY WAS OBTAINED AND REVEALED: Cardiac and mediastinal contours are within normal limits. No significant change in bilateral airspace and interstitial opacities. No definite pleural effusion or pneumothorax. HE IS CURRENTLY RECEIVING NS AT 75 ML/HR, REMDESIVIR 100MG IV DAILY, LEVAQUIN 500MG IV DAILY, AITHROMYCIN 500MG IV DAILY, SOLU-MEDROL 80MG IV Q8H, IVERMECTIN 15MG PO DAILY X 5 DAYS, PROTONIX 40MG PO BID, METOPROLOL 50MG PO DAILY, PEPCID 20MG PO BID, THIAMINE 200MG IV BID, ZINC 220MG PO DAILY, SINGULAIR 10MG PO HS, ZYRTEC 10MG PO DAILY, OTBS ACHS, HUMULIN R SLIDING SCALE, MELATONIN 10MG PO HS, ROBITUSSIN DM 10ML PO QID PRN, LOVENOX 60MG SC DAILY, PERIACTIN 8MG PO TID, PULMICORT NEBS BID, ALBUTEROL NEBS QID, BROVANA INHALER BID, TESSALON PERLES 200MG PO TID, LIPITOR 80MG PH HS, ASCORBIC ACID 1500MG IV Q6H, FLUVOXAMINE 50MG PO BID, ZOFRAN 4MG IV Q4H PRN NAUSEA, AMBIEN 5MG PO HS PRN, AND MAGIC MOUTHWASH QID. HIS HOME MEDICATIONS OF CELEBREX, SYNTHROID, DITROPAN, AND LYRICA WERE ALSO RESUMED. WE WILL CONTINUE WITH CURRENT PLAN OF CARE TODAY. OTHERWISE, WE WILL FOLLOW UP WITH AM LABS, CHEST XRAY, ABG, AND CONTINUE TO MONITOR. TIME SPENT ON CLINICAL ASSESSMENT, REVIEWING LABS AND IMAGING, DECISION MAKING, AND DOCUMENTATION GREATER THAN 45 MINUTES. - Past Medical Family Social History Past Med/Fam/Surg Hx: No changes since H&P Allergies: Allergies No Known Drug Allergies Allergy (Verified 01/06/21 14:36) - Review of Systems ROS: No change since H&P - Vital Signs and I&O's Vital Signs: Temperature 97.9 F Pulse Rate [Left Brachial] 64 Pulse Rate [Apical] 67 Pulse Rate 76 Respiratory Rate 18 Blood Pressure [Left Arm] 149/92 Blood Pressure 157/77 O2 Sat by Pulse Oximetry 93 Intake and Output: Intake & Output 01/10/21 01/11/21 01/12/21 01/13/21 11:59 11:59 11:59 11:59 Intake Total 3950 / 3950 5162 / 5162 2285 / 2285 Output Total 3354 / 3354 2225 / 2225 1825 / 1825 Balance 596 / 596 2937 / 2937 460 / 460 - Physical Exam Oriented: Normal Eyes: Normal Ear: Normal Nose: Normal Throat: Normal Respiratory: Generalized, Rales Cardiovascular: Normal : Normal Auscultation: Bowel Sounds: Normal Palpation: Normal Tenderness: Normal Skin: Normal Musculoskeletal: Normal Psychiatric: Normal Mood Description: Calm Affect: Normal Speech Pattern: Clear, Appropriate - Laboratory and Diagnostics Result Diagrams: 01/12/21 05:02 01/12/21 05:02 Labs: 01/06/21 18:37 Blood Blood Culture - Final 01/06/21 18:29 Blood Blood Culture - Final 01/06/21 15:46 Blood Blood Culture - Final 01/06/21 15:35 Blood Blood Culture - Final 01/09/21 12:41 Sputum - Expectorated Sputum Sputum Culture - Final 01/09/21 12:41 Sputum - Expectorated Sputum - Final Laboratory WBC 22.9 X10^3/uL (3.6-10.0) H 01/12/21 05:02 RBC 4.72 X10^6/uL (4.7-6.0) 01/12/21 05:02 Hgb 13.1 g/dL (13.5-18.0) L 01/12/21 05:02 Hct 39.4 % (42.0-54.0) L 01/12/21 05:02 MCV 83.5 fL (80.0-100.0) 01/12/21 05:02 MCH 27.7 pg (27.0-34.0) 01/12/21 05:02 MCHC 33.1 g/dL (33.0-35.0) 01/12/21 05:02 RDW 13.6 % (11.6-16.5) 01/12/21 05:02 Plt Count 433 X10^3/uL (150.0-450.0) 01/12/21 05:02 Plt Count Comment Adequate (ADEQUATE) 01/12/21 05:02 MPV 9.2 fL (7.4-11.0) 01/12/21 05:02 Neut % (Auto) 94.6 % (42.0-75.0) H 01/12/21 05:02 Lymph % (Auto) 1.7 % (21.0-51.0) L 01/12/21 05:02 Dickens % (Auto) 2.9 % (0.0-13.0) 01/12/21 05:02 Eos % (Auto) 0.5 % (0.9-2.9) L 01/12/21 05:02 Baso % (Auto) 0.3 % (0.2-1.0) 01/12/21 05:02 Neut # (Auto) 21.7 x10^3/uL (2.2-4.8) H 01/12/21 05:02 Lymph # (Auto) 0.4 X10^3/uL (1.3-2.9) L 01/12/21 05:02 Dickens # (Auto) 0.7 x10^3/uL (0.3-0.8) 01/12/21 05:02 Eos # (Auto) 0.1 x10^3/uL (0.0-0.2) 01/12/21 05:02 Baso # (Auto) 0.1 X10^3/uL (0.0-0.1) 01/12/21 05:02 Absolute Nucleated RBC 0.0 /100WBC 01/12/21 05:02 Total Counted 100 01/12/21 05:02 Neutrophils % (Manual) 93 % (39-76) H 01/12/21 05:02 Band Neutrophils % 1 % (0-10) 01/12/21 05:02 Lymphocytes % (Manual) 3 % (13-43) L 01/12/21 05:02 Monocytes % (Manual) 3 % (4-9) L 01/12/21 05:02 Metamyelocytes % 2 01/11/21 05:44 Plt Morphology Comment Normal (NORMAL) 01/12/21 05:02 RBC Morphology Normal (NORMAL) 01/12/21 05:02 D-Dimer 2.64 ug/ml (0.0-0.57) H* 01/11/21 05:44 Sample Site Rr 01/12/21 05:00 ABG pH 7.450 (7.35-7.45) 01/12/21 05:00 ABG pCO2 41.0 mmHg (35.0-45.0) 01/12/21 05:00 ABG pO2 59.0 mmHg (80.0-100.0) L 01/12/21 05:00 ABG HCO3 28.5 mmol/L (22-26) H 01/12/21 05:00 ABG O2 Saturation 91.0 % (90-100) 01/12/21 05:00 ABG Base Excess 4.1 mmol/L (-2.0-2.0) H 01/12/21 05:00 Mello Test Pos 01/12/21 05:00 A-a Gradient 389.0 mmHg 01/12/21 05:00 FiO2 70.0 01/12/21 05:00 Blood Gas Comments Andi well sw 01/12/21 05:00 Sodium 142 mmol/L (136-145) 01/12/21 05:02 Corrected Sodium 145 mmol/L (136-145) 01/12/21 05:02 Potassium 4.2 mmol/L (3.5-5.1) 01/12/21 05:02 Chloride 106 mmol/L (98-107) 01/12/21 05:02 Carbon Dioxide 28.0 mmol/L (21-32) 01/12/21 05:02 BUN 37 mg/dL (7-18) H 01/12/21 05:02 Creatinine 1.07 mg/dL (0.70-1.30) 01/12/21 05:02 Est GFR (MDRD) Af Amer > 60 (>60) 01/12/21 05:02 Est GFR (MDRD) Non-Af > 60 (>60) 01/12/21 05:02 Glucose 238 mg/dL (65-99) H 01/12/21 05:02 POC Glucose (mg/dL) 199 mg/dL (65-99) H 01/12/21 12:23 Lactic Acid 2.5 mmol/L (0.4-2.0) H 01/06/21 15:35 Calcium 8.7 mg/dL (8.5-10.1) 01/12/21 05:02 Corrected Calcium 10.1 mg/dL (8.5-10.1) 01/11/21 05:44 Ferritin 355 ng/mL (26-388) 01/11/21 05:44 Total Bilirubin 0.40 mg/dL (0.2-1.0) 01/11/21 05:44 AST 28 Units/L (15-37) 01/11/21 05:44 ALT 42 Units/L (12-78) 01/11/21 05:44 Alkaline Phosphatase 61 Units/L (46-116) 01/11/21 05:44 Creatine Kinase 357 Units/L (39-308) H 01/06/21 18:29 CK-MB (CK-2) 2.7 ng/mL (0-4.0) 01/06/21 18:29 CK/CKMB % Calc 0.8 % (<4) 01/06/21 18:29 Troponin I < 0.02 ng/mL (0-1.5) 01/06/21 18:29 C-Reactive Protein 0.60 mg/L (0-3.0) 01/12/21 05:02 B-Natriuretic Peptide 156 pg/mL (0-79) H 01/12/21 05:02 Total Protein 5.8 g/dL (6.4-8.2) L 01/11/21 05:44 Albumin 2.4 g/dL (3.4-5.0) L 01/11/21 05:44 Globulin 3.4 g/dL (2.5-4.5) 01/11/21 05:44 Albumin/Globulin Ratio 0.7 Ratio (1.1-2.1) L 01/11/21 05:44 - Plan (1) Pneumonia due to COVID-19 virus Status: Acute Plan: SUPPLEMENTAL OXYGEN, IV FLUIDS, IV REMDESIVIR, IV ANTIBIOTICS, SOLU- MEDROL, RESPIRATORY THERAPY, RESPIRATORY TX (2) Hypoxia Status: Acute
[2021-01-12] MEDS: LEVAQUIN PREMIX IV 500 MG 500 MG/100 ML BAG IV SCH (13:16)
[2021-01-12] MEDS: PRASTERONE 25 MG PO SCH (13:38)
[2021-01-12] MEDS: [UNRECOGNIZED DRUG - OTHER] PO SCH (13:38)
[2021-01-12] MEDS: FENOFIBRATE 50 MG PO SCH (13:38)
[2021-01-12] MEDS: [UNRECOGNIZED DRUG - OTHER] PO SCH (13:39)
[2021-01-12] MEDS: MULT PO SCH (13:39)
[2021-01-12] MEDS: SITAGLIPTIN METFORMIN PO SCH (13:39)
[2021-01-12] MEDS: QUINAPRIL 40 MG PO SCH ×2 (13:39→21:14)
[2021-01-12] MEDS: SINGULAIR TAB 10 MG PO SCH (21:10)
[2021-01-12] MEDS: CELEBREX PO SCH (21:10)
[2021-01-12] MEDS: LIPITOR TAB 80 MG PO SCH (21:10)
[2021-01-12] MEDS: MELATONIN PO SCH (21:10)
[2021-01-13] MEDS: ASCORBIC ACID INJ MULTI-DOSE VIAL 1,500 MG in NS 50 ML IV 50 ML IV SCH ×4 (02:13→21:19)
[2021-01-13 04:08] LABS: ABG ALLEN TEST POS; ABG HCO3 27.9 mmol/L (22-26)
[2021-01-13] MEDS: TESSALON PERLES PO SCH ×3 (05:07→21:18)
[2021-01-13] MEDS: SOLU-Medrol 40 MG VIAL IVP SCH ×3 (05:07→21:18)
[2021-01-13] MEDS: PERIACTIN TAB 4 MG PO SCH ×3 (05:07→21:17)
--- NOTE | 2021-01-13 06:28 | RAD ---
HISTORYSOBSTUDYCHEST, 1 VIEWCOMPARISONOne day prior.TECHNIQUEAP view of the chestFINDINGSCardiac and mediastinal contours are within normal limits. No significant change in left worse than right lung airspace and interstitial opacities. No definite pleural effusion or pneumothorax.IMPRESSIONNo significant change.Electronically signed by: Dick Banegas (Jan 13, 2021 06:27:29)
[2021-01-13 06:31] LABS: BASOPHILS # (AUTO) 0.1 X10^3/uL (0.0-0.1); BASOPHILS % (AUTO) 0.4 % (0.2-1.0); EOSINOPHILS # (AUTO) 0.1 x10^3/uL (0.0-0.2); EOSINOPHILS % (AUTO) 0.4 % (0.9-2.9); HEMATOCRIT 37.5 % (42.0-54.0); HEMOGLOBIN 12.5 g/dL (13.5-18.0); LYMPHOCYTES # (AUTO) 0.3 X10^3/uL (1.3-2.9); LYMPHOCYTES % (AUTO) 1.5 % (21.0-51.0); MEAN CORPUSCULAR HEMOGLOBIN 27.8 pg (27.0-34.0); MEAN CORPUSCULAR HGB CONC 33.4 g/dL (33.0-35.0); MEAN CORPUSCULAR VOLUME 83.5 fL (80.0-100.0); MEAN PLATELET VOLUME 9.2 fL (7.4-11.0); MONOCYTES # (AUTO) 0.7 x10^3/uL (0.3-0.8); MONOCYTES % (AUTO) 3.7 % (0.0-13.0); NEUTROPHILS # (AUTO) 18.6 x10^3/uL (2.2-4.8); PLATELET COUNT 371 X10^3/uL (150.0-450.0); RED BLOOD COUNT 4.49 X10^6/uL (4.7-6.0); RED CELL DISTRIBUTION WIDTH 14.2 % (11.6-16.5); WHITE BLOOD COUNT 19.8 X10^3/uL (3.6-10.0)
[2021-01-13 07:00] LABS: BLOOD UREA NITROGEN 37 mg/dL (7-18); CALCIUM 8.1 mg/dL (8.5-10.1); CARBON DIOXIDE 28.2 mmol/L (21-32); CHLORIDE 109 mmol/L (98-107); COR NA(FOR HYPERGLY) 146 mmol/L (136-145); CREATININE 1.01 mg/dL (0.70-1.30); SODIUM 143 mmol/L (136-145); eGFR NON BLACK RACES > 60 (>60)
[2021-01-13 07:27] LABS: BAND NEUTROPHILS % 1 % (0-10); MYELOCYTES % 2; PLATELET MORPHOLOGY COMMENT NORMAL (NORMAL)
[2021-01-13] MEDS: ACCUNEB 1.25 MG NEBULE NEB SCH ×4 (09:05→20:41)
[2021-01-13] MEDS: PULMICORT NEB TX 0.5 MG NEB SCH ×2 (09:05→20:41)
[2021-01-13] MEDS: BROVANA IN SCH ×2 (09:05→20:41)
[2021-01-13] MEDS: ZINC SULFATE PO SCH (09:59)
[2021-01-13] MEDS: AVODART PO SCH (09:59)
[2021-01-13] MEDS: ZyrTEC TAB 10 MG PO SCH (09:59)
[2021-01-13] MEDS: TOPROL XL PO SCH (09:59)
[2021-01-13] MEDS: VITAMIN D3 125 mcg (5,000 UNITS) PO SCH (09:59)
[2021-01-13] MEDS: PEPCID TAB 20 MG PO SCH ×2 (09:59→21:19)
[2021-01-13] MEDS: PROTONIX TAB 40 MG PO SCH ×2 (09:59→21:19)
[2021-01-13] MEDS: LOVENOX INJ 60 MG SYR SC SCH ×2 (10:00→21:17)
[2021-01-13] MEDS: SYNTHROID 50 mcg TAB PO SCH (10:00)
[2021-01-13] MEDS: MICRO K EXTEN CAP 10 MEQ PO SCH (10:00)
[2021-01-13] MEDS: LYRICA CAP 150 mg PO SCH (10:00)
[2021-01-13] MEDS: FLUVOXAMINE MALEATE PO SCH ×2 (10:00→21:18)
[2021-01-13] MEDS: DITROPAN TAB 5 MG PO SCH (10:01)
[2021-01-13] MEDS: [UNRECOGNIZED DRUG - OTHER] PO SCH (10:01)
[2021-01-13] MEDS: FENOFIBRATE 50 MG PO SCH (10:01)
[2021-01-13] MEDS: LEVAQUIN PREMIX IV 500 MG 500 MG/100 ML BAG IV SCH (10:02)
[2021-01-13] MEDS: PRASTERONE 25 MG PO SCH (10:02)
[2021-01-13] MEDS: THIAMINE HCL INJ IVP SCH ×2 (10:02→21:20)
[2021-01-13] MEDS: QUINAPRIL 40 MG PO SCH ×2 (10:02→21:20)
[2021-01-13] MEDS: MAGIC MOUTHWASH MT SCH ×4 (10:03→21:19)
[2021-01-13] MEDS: SITAGLIPTIN METFORMIN PO SCH (10:03)
[2021-01-13] MEDS: MULT PO SCH (10:03)
[2021-01-13] MEDS: [UNRECOGNIZED DRUG - OTHER] PO SCH (10:03)
[2021-01-13] MEDS: NS 1/2 1000 ML IV 1,000 ML IV SCH ×2 (11:14→21:17)
[2021-01-13] MEDS: HumuLIN R SUBCUT PRN ×2 (12:30→17:02)
[2021-01-13 15:29] LABS: CKMB % 0.8 % (<4); CREATINE KINASE MB 1.2 ng/mL (0-4.0); TROPONIN I 0.02 ng/mL (0-1.5)
[2021-01-13 17:47] LABS: CKMB % 0.9 % (<4); CREATINE KINASE MB 1.2 ng/mL (0-4.0); TROPONIN I 0.02 ng/mL (0-1.5)
[2021-01-13 20:56] LABS: ALANINE AMINOTRANSFERASE 37 Units/L (12-78); ALBUMIN 2.5 g/dL (3.4-5.0); ALKALINE PHOSPHATASE 44 Units/L (46-116); ASPARTATE AMINO TRANSFERASE 30 Units/L (15-37); COR CA(FOR HYPOALB) 9.3 mg/dL (8.5-10.1); TOTAL PROTEIN 5.2 g/dL (6.4-8.2)
[2021-01-13] MEDS ORDERED: NS 1/2 1000 ML IV 1,000 ML IV ONE (20:59)
[2021-01-13 21:12] VITALS: BMI 27.6
[2021-01-13] MEDS: MELATONIN PO SCH (21:18)
[2021-01-13] MEDS: LIPITOR TAB 80 MG PO SCH (21:18)
[2021-01-13] MEDS: CELEBREX PO SCH (21:19)
[2021-01-13] MEDS: SINGULAIR TAB 10 MG PO SCH (21:24)
[2021-01-13 22:09] LABS: CREATINE KINASE 132 Units/L (39-308); CREATINE KINASE MB 1.3 ng/mL (0-4.0); TROPONIN I < 0.02 ng/mL (0-1.5)
[2021-01-13 22:44] LABS: ALANINE AMINOTRANSFERASE 46 Units/L (12-78); ALBUMIN 2.7 g/dL (3.4-5.0); ALKALINE PHOSPHATASE 51 Units/L (46-116); ASPARTATE AMINO TRANSFERASE 35 Units/L (15-37); COR CA(FOR HYPOALB) 9.7 mg/dL (8.5-10.1)
[2021-01-14] MEDS: ASCORBIC ACID INJ MULTI-DOSE VIAL 1,500 MG in NS 50 ML IV 50 ML IV SCH ×4 (02:24→20:45)
[2021-01-14] MEDS: PERIACTIN TAB 4 MG PO SCH ×3 (05:27→22:01)
[2021-01-14] MEDS: SOLU-Medrol 40 MG VIAL IVP SCH ×3 (05:27→22:01)
[2021-01-14] MEDS: TESSALON PERLES PO SCH ×3 (05:28→22:01)
[2021-01-14] MEDS: HumuLIN R SUBCUT PRN ×4 (05:47→20:46)
[2021-01-14 05:53] LABS: ABG ALLEN TEST POS; ABG HCO3 29.1 mmol/L (22-26)
[2021-01-14 06:15] LABS: ALANINE AMINOTRANSFERASE 36 Units/L (12-78); ALBUMIN 2.1 g/dL (3.4-5.0); ALKALINE PHOSPHATASE 42 Units/L (46-116); ASPARTATE AMINO TRANSFERASE 20 Units/L (15-37); BLOOD UREA NITROGEN 37 mg/dL (7-18); CALCIUM 8.1 mg/dL (8.5-10.1); CARBON DIOXIDE 29.4 mmol/L (21-32); CHLORIDE 110 mmol/L (98-107); COR CA(FOR HYPOALB) 9.6 mg/dL (8.5-10.1); COR NA(FOR HYPERGLY) 147 mmol/L (136-145); CREATININE 0.92 mg/dL (0.70-1.30); SODIUM 144 mmol/L (136-145); eGFR NON BLACK RACES > 60 (>60)
[2021-01-14 06:23] LABS: BASOPHILS # (AUTO) 0.1 X10^3/uL (0.0-0.1); BASOPHILS % (AUTO) 0.7 % (0.2-1.0); HEMATOCRIT 37.5 % (42.0-54.0); HEMOGLOBIN 12.5 g/dL (13.5-18.0); LYMPHOCYTES # (AUTO) 0.3 X10^3/uL (1.3-2.9); LYMPHOCYTES % (AUTO) 1.7 % (21.0-51.0); MEAN CORPUSCULAR HEMOGLOBIN 27.9 pg (27.0-34.0); MEAN CORPUSCULAR HGB CONC 33.4 g/dL (33.0-35.0); MEAN CORPUSCULAR VOLUME 83.4 fL (80.0-100.0); MEAN PLATELET VOLUME 9.3 fL (7.4-11.0); MONOCYTES # (AUTO) 0.7 x10^3/uL (0.3-0.8); MONOCYTES % (AUTO) 3.4 % (0.0-13.0); NEUTROPHILS # (AUTO) 18.2 x10^3/uL (2.2-4.8); NEUTROPHILS % (AUTO) 94.2 % (42.0-75.0); PLATELET COUNT 342 X10^3/uL (150.0-450.0); RED CELL DISTRIBUTION WIDTH 13.9 % (11.6-16.5); WHITE BLOOD COUNT 19.3 X10^3/uL (3.6-10.0)
[2021-01-14 07:47] LABS: BAND NEUTROPHILS % 1 % (0-10); PLATELET MORPHOLOGY COMMENT NORMAL (NORMAL)
--- NOTE | 2021-01-14 08:18 | RAD ---
HISTORYSOBSTUDYAP [id number] is no significant change in appearance of heart or lungs. Similar extent and distribution of bilateral pneumonic infiltrates. No new areas of consolidation or pleural fluid identified.IMPRESSIONNo change. Stable appearance of bilateral pneumonia.Electronically signed by: ELÍAS VASQUEZ (Jan 14, 2021 08:16:10)
[2021-01-14] MEDS: AVODART PO SCH (08:48)
[2021-01-14] MEDS: FENOFIBRATE 50 MG PO SCH (08:48)
[2021-01-14] MEDS: DITROPAN TAB 5 MG PO SCH (08:48)
[2021-01-14] MEDS: FLUVOXAMINE MALEATE PO SCH ×2 (08:48→20:44)
[2021-01-14] MEDS: LEVAQUIN PREMIX IV 500 MG 500 MG/100 ML BAG IV SCH (08:49)
[2021-01-14] MEDS: [UNRECOGNIZED DRUG - OTHER] PO SCH (08:49)
[2021-01-14] MEDS: LOVENOX INJ 60 MG SYR SC SCH ×2 (08:49→20:43)
[2021-01-14] MEDS: LYRICA CAP 150 mg PO SCH (08:49)
[2021-01-14] MEDS: PRASTERONE 25 MG PO SCH (08:50)
[2021-01-14] MEDS: MAGIC MOUTHWASH MT SCH ×4 (08:50→22:00)
[2021-01-14] MEDS: PEPCID TAB 20 MG PO SCH ×2 (08:50→20:43)
[2021-01-14] MEDS: MICRO K EXTEN CAP 10 MEQ PO SCH (08:50)
[2021-01-14] MEDS: PROTONIX TAB 40 MG PO SCH ×2 (08:50→20:45)
[2021-01-14] MEDS: MULT PO SCH (08:51)
[2021-01-14] MEDS: SYNTHROID 50 mcg TAB PO SCH (08:51)
[2021-01-14] MEDS: QUINAPRIL 40 MG PO SCH ×2 (08:51→22:00)
[2021-01-14] MEDS: THIAMINE HCL INJ IVP SCH ×2 (08:51→20:45)
[2021-01-14] MEDS: [UNRECOGNIZED DRUG - OTHER] PO SCH (08:51)
[2021-01-14] MEDS: SITAGLIPTIN METFORMIN PO SCH (08:51)
[2021-01-14] MEDS: TOPROL XL PO SCH (08:52)
[2021-01-14] MEDS: ZyrTEC TAB 10 MG PO SCH (08:52)
[2021-01-14] MEDS: ZINC SULFATE PO SCH (08:52)
[2021-01-14] MEDS: VITAMIN D3 125 mcg (5,000 UNITS) PO SCH (08:52)
--- NOTE | 2021-01-14 09:07 | PCM.PROG ---
Progress Note - Progress Note for Day of Date of Exam: 01/13/21 - Subjective Subjective: MR. STEVENSON WAS ADMITTED FOR TREATMENT OF COVID PNEUMONIA AND HYPOXIA. TODAY, HE IS ALERT AND ORIENTED, SITTING UP IN THE BED ON MORNING ROUNDS. HE CONTINUES WITH COMPLAINTS OF INTERMITTENT COUGH, SHORTNESS OF BREATH, AND WEAKNESS TODAY. HE DENIES SIGNIFICANT IMPROVEMENT IN SYMPTOMS SINCE YESTERDAY. HE REMAINS ON HEATED HIGH FLOW OXYGEN AT 70%. HIS OXYGEN SATURATIONS HAVE BEEN ANYWHERE FROM 90-96% WHILE ON HEATED HIGH FLOW. ON EXAMINATION, HEART IS REGULAR IN RATE AND RHYTHM. BILATERAL LUNGS ARE NOTED WITH RALES THROUGHOUT. ABDOMEN IS ROUND, SOFT, AND NON-TENDER WITH NORMAL BOWEL SOUNDS NOTED IN ALL QUADRANTS. HIS VITALS THIS MORNING ARE: 97.9-72-22-96%-155/82. LABS WERE OBTAINED. ABNORMAL LAB VALUES INCLUDE THE FOLLOWING: WBC 19.8, RBC 4.49, HGB 12.5, HCT 37.5, D-DIMER 2.30, CHLORIDE 109, BUN 37, GLUCOSE 214, CALCIUM 8.1, ALK PHOS 44, BNP 98.5, TOTAL PROTEIN 5.2, ALBUMIN 2.5. ABG REVEALED: PH 7.420, PC02 43, P02 59, HC03 27.9, 02 SAT 91, BASE EXCESS 3.0, A-A GRADINET 386, FI02 70. A CHEST XRAY WAS OBTAINED AND REVEALED: Cardiac and mediastinal contours are within normal limits. No significant change in left worse than right lung airspace and interstitial opacities. No definite pleural effusion or pneumothorax. HE IS CURRENTLY RECEIVING NS AT 75 ML/HR, REMDESIVIR 100MG IV DAILY, LEVAQUIN 500MG IV DAILY, AITHROMYCIN 500MG IV DAILY, SOLU-MEDROL 80MG IV Q8H, IVERMECTIN 15MG PO DAILY X 5 DAYS, PROTONIX 40MG PO BID, METOPROLOL 50MG PO DAILY, PEPCID 20MG PO BID, THIAMINE 200MG IV BID, ZINC 220MG PO DAILY, SINGULAIR 10MG PO HS, ZYRTEC 10MG PO DAILY, OTBS ACHS, HUMULIN R SLIDING SCALE, MELATONIN 10MG PO HS, ROBITUSSIN DM 10ML PO QID PRN, LOVENOX 60MG SC DAILY, PERIACTIN 8MG PO TID, PULMICORT NEBS BID, ALBUTEROL NEBS QID, BROVANA INHALER BID, TESSALON PERLES 200MG PO TID, LIPITOR 80MG PH HS, ASCORBIC ACID 1500MG IV Q6H, FLUVOXAMINE 50MG PO BID, ZOFRAN 4MG IV Q4H PRN NAUSEA, AMBIEN 5MG PO HS PRN, AND MAGIC MOUTHWASH QID. HIS HOME MEDICATIONS OF CELEBREX, SYNTHROID, DITROPAN, AND LYRICA WERE ALSO RESUMED. WE WILL CONTINUE WITH CURRENT PLAN OF CARE TODAY AND ATTEMPT TO WEAN DOWN ON OXYGEN. OTHERWISE, WE WILL FOLLOW UP WITH AM LABS, CHEST XRAY, ABG, AND CONTINUE TO MONITOR. TIME SPENT ON CLINICAL ASSESSMENT, REVIEWING LABS AND IMAGING, DECISION MAKING, AND DOCUMENTATION GREATER THAN 45 MINUTES. - Past Medical Family Social History Past Med/Fam/Surg Hx: No changes since H&P Allergies: Allergies No Known Drug Allergies Allergy (Verified 01/06/21 14:36) - Review of Systems ROS: No change since H&P - Vital Signs and I&O's Vital Signs: Temperature 98.2 F Pulse Rate [Left Brachial] 78 Pulse Rate [Apical] 84 Pulse Rate 97 Respiratory Rate 22 Blood Pressure [Left Arm] 162/92 Blood Pressure 157/77 O2 Sat by Pulse Oximetry 91 Intake and Output: Intake & Output 01/11/21 01/12/21 01/13/21 01/14/21 11:59 11:59 11:59 11:59 Intake Total 5162 / 5162 2285 / 2285 2373 / 2373 2667 / 2667 Output Total 2225 / 2225 1825 / 1825 1225 / 1225 3150 / 3150 Balance 2937 / 2937 460 / 460 1148 / 1148 -483 / -483 - Physical Exam Oriented: Normal Eyes: Normal Ear: Normal Nose: Normal Throat: Normal Respiratory: Generalized, Rales Cardiovascular: Normal : Normal Auscultation: Bowel Sounds: Normal Tenderness: Normal Skin: Normal Musculoskeletal: Normal Psychiatric: Normal Mood Description: Calm Affect: Normal Speech Pattern: Clear, Appropriate - Laboratory and Diagnostics Result Diagrams: 01/14/21 05:19 01/14/21 05:19 Labs: 01/06/21 18:37 Blood Blood Culture - Final 01/06/21 18:29 Blood Blood Culture - Final 01/06/21 15:46 Blood Blood Culture - Final 01/06/21 15:35 Blood Blood Culture - Final 01/09/21 12:41 Sputum - Expectorated Sputum Sputum Culture - Final 01/09/21 12:41 Sputum - Expectorated Sputum - Final Laboratory WBC 19.3 X10^3/uL (3.6-10.0) H 01/14/21 05:19 RBC 4.50 X10^6/uL (4.7-6.0) L 01/14/21 05:19 Hgb 12.5 g/dL (13.5-18.0) L 01/14/21 05:19 Hct 37.5 % (42.0-54.0) L 01/14/21 05:19 MCV 83.4 fL (80.0-100.0) 01/14/21 05:19 MCH 27.9 pg (27.0-34.0) 01/14/21 05:19 MCHC 33.4 g/dL (33.0-35.0) 01/14/21 05:19 RDW 13.9 % (11.6-16.5) 01/14/21 05:19 Plt Count 342 X10^3/uL (150.0-450.0) 01/14/21 05:19 Plt Count Comment Adequate (ADEQUATE) 01/14/21 05:19 MPV 9.3 fL (7.4-11.0) 01/14/21 05:19 Neut % (Auto) 94.2 % (42.0-75.0) H 01/14/21 05:19 Lymph % (Auto) 1.7 % (21.0-51.0) L 01/14/21 05:19 [place] % (Auto) 3.4 % (0.0-13.0) 01/14/21 05:19 Eos % (Auto) 0.0 % (0.9-2.9) L 01/14/21 05:19 Baso % (Auto) 0.7 % (0.2-1.0) 01/14/21 05:19 Neut # (Auto) 18.2 x10^3/uL (2.2-4.8) H 01/14/21 05:19 Lymph # (Auto) 0.3 X10^3/uL (1.3-2.9) L 01/14/21 05:19 [place] # (Auto) 0.7 x10^3/uL (0.3-0.8) 01/14/21 05:19 Eos # (Auto) 0.0 x10^3/uL (0.0-0.2) 01/14/21 05:19 Baso # (Auto) 0.1 X10^3/uL (0.0-0.1) 01/14/21 05:19 Absolute Nucleated RBC 0.0 /100WBC 01/14/21 05:19 Total Counted 100 01/14/21 05:19 Neutrophils % (Manual) 92 % (39-76) H 01/14/21 05:19 Band Neutrophils % 1 % (0-10) 01/14/21 05:19 Lymphocytes % (Manual) 2 % (13-43) L 01/14/21 05:19 Monocytes % (Manual) 5 % (4-9) 01/14/21 05:19 Metamyelocytes % 2 01/11/21 05:44 Myelocytes % 2 01/13/21 06:06 Plt Morphology Comment Normal (NORMAL) 01/14/21 05:19 RBC Morphology Normal (NORMAL) 01/14/21 05:19 D-Dimer 2.64 ug/ml (0.0-0.57) H* 01/11/21 05:44 Sample Site Rrad 01/14/21 05:52 ABG pH 7.470 (7.35-7.45) H 01/14/21 05:52 ABG pCO2 40.0 mmHg (35.0-45.0) 01/14/21 05:52 ABG pO2 53.0 mmHg (80.0-100.0) L 01/14/21 05:52 ABG HCO3 29.1 mmol/L (22-26) H 01/14/21 05:52 ABG O2 Saturation 89.0 % (90-100) L 01/14/21 05:52 ABG Base Excess 5.0 mmol/L (-2.0-2.0) H 01/14/21 05:52 Mello Test Pos 01/14/21 05:52 A-a Gradient 254.0 mmHg 01/14/21 05:52 FiO2 50.0 01/14/21 05:52 Blood Gas Comments Andi abg well-mtf 01/14/21 05:52 Sodium 144 mmol/L (136-145) 01/14/21 05:19 Corrected Sodium 147 mmol/L (136-145) H 01/14/21 05:19 Potassium 4.2 mmol/L (3.5-5.1) 01/14/21 05:19 Chloride 110 mmol/L (98-107) H 01/14/21 05:19 Carbon Dioxide 29.4 mmol/L (21-32) 01/14/21 05:19 BUN 37 mg/dL (7-18) H 01/14/21 05:19 Creatinine 0.92 mg/dL (0.70-1.30) 01/14/21 05:19 Est GFR (MDRD) Af Amer > 60 (>60) 01/14/21 05:19 Est GFR (MDRD) Non-Af > 60 (>60) 01/14/21 05:19 Glucose 244 mg/dL (65-99) H 01/14/21 05:19 POC Glucose (mg/dL) 223 mg/dL (65-99) H 01/13/21 16:29 Lactic Acid 2.5 mmol/L (0.4-2.0) H 01/06/21 15:35 Calcium 8.1 mg/dL (8.5-10.1) L 01/14/21 05:19 Corrected Calcium 9.6 mg/dL (8.5-10.1) 01/14/21 05:19 Ferritin 355 ng/mL (26-388) 01/11/21 05:44 Total Bilirubin 0.40 mg/dL (0.2-1.0) 01/14/21 05:19 AST 20 Units/L (15-37) 01/14/21 05:19 ALT 36 Units/L (12-78) 01/14/21 05:19 Alkaline Phosphatase 42 Units/L (46-116) L 01/14/21 05:19 Creatine Kinase 132 Units/L (39-308) 01/13/21 21:10 CK-MB (CK-2) 1.3 ng/mL (0-4.0) 01/13/21 21:10 CK/CKMB % Calc 1.0 % (<4) 01/13/21 21:10 Troponin I < 0.02 ng/mL (0-1.5) 01/13/21 21:10 C-Reactive Protein < 0.50 mg/L (0-3.0) 01/14/21 05:19 B-Natriuretic Peptide 75.9 pg/mL (0-79) 01/14/21 05:19 Total Protein 5.0 g/dL (6.4-8.2) L 01/14/21 05:19 Albumin 2.1 g/dL (3.4-5.0) L 01/14/21 05:19 Globulin 2.9 g/dL (2.5-4.5) 01/14/21 05:19 Albumin/Globulin Ratio 0.7 Ratio (1.1-2.1) L 01/14/21 05:19 - Plan (1) Pneumonia due to COVID-19 virus Status: Acute Plan: SUPPLEMENTAL OXYGEN, IV FLUIDS, IV REMDESIVIR, IV ANTIBIOTICS, SOLU- MEDROL, RESPIRATORY THERAPY, RESPIRATORY TX (2) Hypoxia Status: Acute
[2021-01-14] MEDS: PULMICORT NEB TX 0.5 MG NEB SCH ×2 (09:20→20:24)
[2021-01-14] MEDS: ACCUNEB 1.25 MG NEBULE NEB SCH ×4 (09:20→20:24)
[2021-01-14] MEDS: BROVANA IN SCH ×2 (09:20→20:24)
--- NOTE | 2021-01-14 11:51 | PCM.PROG ---
Progress Note - Progress Note for Day of Date of Exam: 01/14/21 - Subjective Subjective: MR. STEVENSON WAS ADMITTED FOR TREATMENT OF COVID PNEUMONIA AND HYPOXIA. TODAY, HE IS ALERT AND ORIENTED, SITTING UP IN THE BED ON MORNING ROUNDS. HE CONTINUES WITH COMPLAINTS OF INTERMITTENT COUGH, SHORTNESS OF BREATH, AND WEAKNESS TODAY. HE DOES ADMIT TO SLIGHT IMPROVEMENT IN SYMPTOMS SINCE YESTERDAY. HE REMAINS ON HEATED HIGH FLOW OXYGEN THIS MORNING. OXYGEN IS DOWN TO 50%. HIS OXYGEN SATURATIONS HAVE BEEN ANYWHERE FROM 87-94% WHILE ON HEATED HIGH FLOW. ON EXAMINATION, HEART IS REGULAR IN RATE AND RHYTHM. BILATERAL LUNGS ARE NOTED WITH RALES THROUGHOUT. ABDOMEN IS ROUND, SOFT, AND NON-TENDER WITH NORMAL BOWEL SOUNDS NOTED IN ALL QUADRANTS. HIS VITALS THIS MORNING ARE: 98.2-74-22-91%-15 . LABS WERE OBTAINED. ABNORMAL LAB VALUES INCLUDE THE FOLLOWING: WBC 19.3, RBC 4.50, HGB 12.5, HCT 37.5, D-DIMER 2.64, CHLORIDE 110, BUN 37, GLUCOSE 244, CALCIUM 8.1, ALK PHOS 42, TOTAL PROTEIN 5.0, ALBUMIN 2.1. ABG REVEALED: PH 7.470, PC02 40, P02 53, HC03 29.1, 02 SAT 89, A-A GRADIENT 254, FI02 50. A CHEST XRAY WAS OBTAINED AND REVEALED: Cardiac and mediastinal contours are within normal limits. No significant change in left worse than right lung airspace and interstitial opacities. No definite pleural effusion or pneumothorax. HE IS CURRENTLY RECEIVING NS AT 75 ML/HR, REMDESIVIR 100MG IV DAILY, LEVAQUIN 500MG IV DAILY, AITHROMYCIN 500MG IV DAILY, SOLU-MEDROL 80MG IV Q8H, IVERMECTIN 15MG PO DAILY X 5 DAYS, PROTONIX 40MG PO BID, METOPROLOL 50MG PO DAILY, PEPCID 20MG PO BID, THIAMINE 200MG IV BID, ZINC 220MG PO DAILY, SINGULAIR 10MG PO HS, ZYRTEC 10MG PO DAILY, OTBS ACHS, HUMULIN R SLIDING SCALE, MELATONIN 10MG PO HS, ROBITUSSIN DM 10ML PO QID PRN, LOVENOX 60MG SC DAILY, PERIACTIN 8MG PO TID, PULMICORT NEBS BID, ALBUTEROL NEBS QID, BROVANA INHALER BID, TESSALON PERLES 200MG PO TID, LIPITOR 80MG PH HS, ASCORBIC ACID 1500MG IV Q6H, FLUVOXAMINE 50MG PO BID, ZOFRAN 4MG IV Q4H PRN NAUSEA, AMBIEN 5MG PO HS PRN, AND MAGIC MOUTHWASH QID. HIS HOME MEDICATIONS OF CELEBREX, SYNTHROID, DITROPAN, AND LYRICA WERE ALSO RESUMED. WE WILL CONTINUE WITH CURRENT PLAN OF CARE TODAY AND ATTEMPT TO WEAN DOWN ON OXYGEN MORE. OTHERWISE, WE WILL FOLLOW UP WITH AM LABS, CHEST XRAY, ABG, AND CONTINUE TO MONITOR. TIME SPENT ON CLINICAL ASSESSMENT, REVIEWING LABS AND IMAGING, DECISION MAKING, AND DOCUMENTATION GREATER THAN 45 MINUTES. - Past Medical Family Social History Past Med/Fam/Surg Hx: No changes since H&P Allergies: Allergies No Known Drug Allergies Allergy (Verified 01/06/21 14:36) - Review of Systems ROS: No change since H&P - Vital Signs and I&O's Vital Signs: Temperature 98.2 F Pulse Rate [Left Brachial] 78 Pulse Rate [Apical] 74 Pulse Rate 64 Respiratory Rate 22 Blood Pressure [Left Arm] 157/93 Blood Pressure 157/77 O2 Sat by Pulse Oximetry 96 Intake and Output: Intake & Output 01/11/21 01/12/21 01/13/21 01/14/21 11:59 11:59 11:59 11:59 Intake Total 5162 / 5162 2285 / 2285 2373 / 2373 2667 / 2667 Output Total 2225 / 2225 1825 / 1825 1225 / 1225 3150 / 3150 Balance 2937 / 2937 460 / 460 1148 / 1148 -483 / -483 - Physical Exam Oriented: Normal Eyes: Normal Ear: Normal Nose: Normal Throat: Normal Respiratory: Generalized, Rales Cardiovascular: Normal : Normal Auscultation: Bowel Sounds: Normal Palpation: Normal Tenderness: Normal Skin: Normal Musculoskeletal: Normal Psychiatric: Normal Mood Description: Calm Affect: Normal Speech Pattern: Clear, Appropriate - Laboratory and Diagnostics Result Diagrams: 01/14/21 05:19 01/14/21 05:19 Labs: 01/06/21 18:37 Blood Blood Culture - Final 01/06/21 18:29 Blood Blood Culture - Final 01/06/21 15:46 Blood Blood Culture - Final 01/06/21 15:35 Blood Blood Culture - Final 01/09/21 12:41 Sputum - Expectorated Sputum Sputum Culture - Final 01/09/21 12:41 Sputum - Expectorated Sputum - Final Laboratory WBC 19.3 X10^3/uL (3.6-10.0) H 01/14/21 05:19 RBC 4.50 X10^6/uL (4.7-6.0) L 01/14/21 05:19 Hgb 12.5 g/dL (13.5-18.0) L 01/14/21 05:19 Hct 37.5 % (42.0-54.0) L 01/14/21 05:19 MCV 83.4 fL (80.0-100.0) 01/14/21 05:19 MCH 27.9 pg (27.0-34.0) 01/14/21 05:19 MCHC 33.4 g/dL (33.0-35.0) 01/14/21 05:19 RDW 13.9 % (11.6-16.5) 01/14/21 05:19 Plt Count 342 X10^3/uL (150.0-450.0) 01/14/21 05:19 Plt Count Comment Adequate (ADEQUATE) 01/14/21 05:19 MPV 9.3 fL (7.4-11.0) 01/14/21 05:19 Neut % (Auto) 94.2 % (42.0-75.0) H 01/14/21 05:19 Lymph % (Auto) 1.7 % (21.0-51.0) L 01/14/21 05:19 [place] % (Auto) 3.4 % (0.0-13.0) 01/14/21 05:19 Eos % (Auto) 0.0 % (0.9-2.9) L 01/14/21 05:19 Baso % (Auto) 0.7 % (0.2-1.0) 01/14/21 05:19 Neut # (Auto) 18.2 x10^3/uL (2.2-4.8) H 01/14/21 05:19 Lymph # (Auto) 0.3 X10^3/uL (1.3-2.9) L 01/14/21 05:19 [place] # (Auto) 0.7 x10^3/uL (0.3-0.8) 01/14/21 05:19 Eos # (Auto) 0.0 x10^3/uL (0.0-0.2) 01/14/21 05:19 Baso # (Auto) 0.1 X10^3/uL (0.0-0.1) 01/14/21 05:19 Absolute Nucleated RBC 0.0 /100WBC 01/14/21 05:19 Total Counted 100 01/14/21 05:19 Neutrophils % (Manual) 92 % (39-76) H 01/14/21 05:19 Band Neutrophils % 1 % (0-10) 01/14/21 05:19 Lymphocytes % (Manual) 2 % (13-43) L 01/14/21 05:19 Monocytes % (Manual) 5 % (4-9) 01/14/21 05:19 Metamyelocytes % 2 01/11/21 05:44 Myelocytes % 2 01/13/21 06:06 Plt Morphology Comment Normal (NORMAL) 01/14/21 05:19 RBC Morphology Normal (NORMAL) 01/14/21 05:19 D-Dimer 2.64 ug/ml (0.0-0.57) H* 01/11/21 05:44 Sample Site Rrad 01/14/21 05:52 ABG pH 7.470 (7.35-7.45) H 01/14/21 05:52 ABG pCO2 40.0 mmHg (35.0-45.0) 01/14/21 05:52 ABG pO2 53.0 mmHg (80.0-100.0) L 01/14/21 05:52 ABG HCO3 29.1 mmol/L (22-26) H 01/14/21 05:52 ABG O2 Saturation 89.0 % (90-100) L 01/14/21 05:52 ABG Base Excess 5.0 mmol/L (-2.0-2.0) H 01/14/21 05:52 Mello Test Pos 01/14/21 05:52 A-a Gradient 254.0 mmHg 01/14/21 05:52 FiO2 50.0 01/14/21 05:52 Blood Gas Comments Andi abg well-mtf 01/14/21 05:52 Sodium 144 mmol/L (136-145) 01/14/21 05:19 Corrected Sodium 147 mmol/L (136-145) H 01/14/21 05:19 Potassium 4.2 mmol/L (3.5-5.1) 01/14/21 05:19 Chloride 110 mmol/L (98-107) H 01/14/21 05:19 Carbon Dioxide 29.4 mmol/L (21-32) 01/14/21 05:19 BUN 37 mg/dL (7-18) H 01/14/21 05:19 Creatinine 0.92 mg/dL (0.70-1.30) 01/14/21 05:19 Est GFR (MDRD) Af Amer > 60 (>60) 01/14/21 05:19 Est GFR (MDRD) Non-Af > 60 (>60) 01/14/21 05:19 Glucose 244 mg/dL (65-99) H 01/14/21 05:19 POC Glucose (mg/dL) 262 mg/dL (65-99) H 01/14/21 11:44 Lactic Acid 2.5 mmol/L (0.4-2.0) H 01/06/21 15:35 Calcium 8.1 mg/dL (8.5-10.1) L 01/14/21 05:19 Corrected Calcium 9.6 mg/dL (8.5-10.1) 01/14/21 05:19 Ferritin 355 ng/mL (26-388) 01/11/21 05:44 Total Bilirubin 0.40 mg/dL (0.2-1.0) 01/14/21 05:19 AST 20 Units/L (15-37) 01/14/21 05:19 ALT 36 Units/L (12-78) 01/14/21 05:19 Alkaline Phosphatase 42 Units/L (46-116) L 01/14/21 05:19 Creatine Kinase 132 Units/L (39-308) 01/13/21 21:10 CK-MB (CK-2) 1.3 ng/mL (0-4.0) 01/13/21 21:10 CK/CKMB % Calc 1.0 % (<4) 01/13/21 21:10 Troponin I < 0.02 ng/mL (0-1.5) 01/13/21 21:10 C-Reactive Protein < 0.50 mg/L (0-3.0) 01/14/21 05:19 B-Natriuretic Peptide 75.9 pg/mL (0-79) 01/14/21 05:19 Total Protein 5.0 g/dL (6.4-8.2) L 01/14/21 05:19 Albumin 2.1 g/dL (3.4-5.0) L 01/14/21 05:19 Globulin 2.9 g/dL (2.5-4.5) 01/14/21 05:19 Albumin/Globulin Ratio 0.7 Ratio (1.1-2.1) L 01/14/21 05:19 - Plan (1) Pneumonia due to COVID-19 virus Status: Acute Plan: SUPPLEMENTAL OXYGEN, IV FLUIDS, IV REMDESIVIR, IV ANTIBIOTICS, SOLU- MEDROL, RESPIRATORY THERAPY, RESPIRATORY [place] (2) Hypoxia Status: Acute
[2021-01-14] MEDS: NS 1/2 1000 ML IV 1,000 ML IV SCH ×2 (18:03→20:43)
[2021-01-14] MEDS ORDERED: NS 1/2 1000 ML IV 1,000 ML IV ONE (20:19)
[2021-01-14] MEDS: CELEBREX PO SCH (20:44)
[2021-01-14] MEDS: LIPITOR TAB 80 MG PO SCH (20:44)
[2021-01-14] MEDS: MELATONIN PO SCH (20:44)
[2021-01-14] MEDS: SINGULAIR TAB 10 MG PO SCH (20:44)
[2021-01-15] MEDS: ASCORBIC ACID INJ MULTI-DOSE VIAL 1,500 MG in NS 50 ML IV 50 ML IV SCH ×4 (02:07→21:31)
[2021-01-15] MEDS ORDERED: NS 1/2 1000 ML IV 1,000 ML IV ONE (04:20)
--- NOTE | 2021-01-15 05:18 | RAD ---
HISTORYSOBSTUDYPortable AP [id number] heart size and configuration. There is slight interval increase in bilateral airspace disease, with no evidence for complicating pneumothorax or developing pleural effusion. Mediastinum and hilar structures, as visualized, are normal.IMPRESSIONSlight progression in bilateral pneumonic infiltrates compared to 1 day prior.Electronically signed by: ELÍAS VASQUEZ (Jan 15, 2021 05:16:10)
[2021-01-15] MEDS: PERIACTIN TAB 4 MG PO SCH ×3 (05:55→21:33)
[2021-01-15] MEDS: SOLU-Medrol 40 MG VIAL IVP SCH (05:55)
[2021-01-15] MEDS: HumuLIN R SUBCUT PRN ×4 (05:56→21:34)
[2021-01-15] MEDS: TESSALON PERLES PO SCH ×3 (05:56→21:32)
[2021-01-15] MEDS: NS 1/2 1000 ML IV 1,000 ML IV SCH ×2 (05:57→10:37)
[2021-01-15 06:10] LABS: BASOPHILS % (AUTO) 0.2 % (0.2-1.0); HEMATOCRIT 38.8 % (42.0-54.0); HEMOGLOBIN 12.9 g/dL (13.5-18.0); LYMPHOCYTES # (AUTO) 0.3 X10^3/uL (1.3-2.9); LYMPHOCYTES % (AUTO) 1.5 % (21.0-51.0); MEAN CORPUSCULAR HEMOGLOBIN 28.1 pg (27.0-34.0); MEAN CORPUSCULAR HGB CONC 33.3 g/dL (33.0-35.0); MEAN CORPUSCULAR VOLUME 84.2 fL (80.0-100.0); MEAN PLATELET VOLUME 9.1 fL (7.4-11.0); MONOCYTES % (AUTO) 4.9 % (0.0-13.0); NEUTROPHILS # (AUTO) 18.3 x10^3/uL (2.2-4.8); NEUTROPHILS % (AUTO) 93.4 % (42.0-75.0); PLATELET COUNT 329 X10^3/uL (150.0-450.0); RED BLOOD COUNT 4.61 X10^6/uL (4.7-6.0); RED CELL DISTRIBUTION WIDTH 14.2 % (11.6-16.5); WHITE BLOOD COUNT 19.7 X10^3/uL (3.6-10.0)
[2021-01-15 06:35] LABS: ALANINE AMINOTRANSFERASE 37 Units/L (12-78); ALBUMIN 2.2 g/dL (3.4-5.0); ALKALINE PHOSPHATASE 44 Units/L (46-116); ASPARTATE AMINO TRANSFERASE 20 Units/L (15-37); BLOOD UREA NITROGEN 36 mg/dL (7-18); CALCIUM 8.3 mg/dL (8.5-10.1); CARBON DIOXIDE 28.6 mmol/L (21-32); CHLORIDE 109 mmol/L (98-107); COR CA(FOR HYPOALB) 9.7 mg/dL (8.5-10.1); COR NA(FOR HYPERGLY) 146 mmol/L (136-145); CREATININE 0.95 mg/dL (0.70-1.30); SODIUM 144 mmol/L (136-145); TOTAL PROTEIN 5.1 g/dL (6.4-8.2); eGFR NON BLACK RACES > 60 (>60)
[2021-01-15 08:40] LABS: ABG BASE EXCESS 6.3 mmol/L (-2.0-2.0)
[2021-01-15 08:41] LABS: ABG HCO3 30.6 mmol/L (22-26)
[2021-01-15 08:43] LABS: PLATELET MORPHOLOGY COMMENT NORMAL (NORMAL)
[2021-01-15] MEDS: ACCUNEB 1.25 MG NEBULE NEB SCH ×3 (09:30→20:35)
[2021-01-15] MEDS: BROVANA IN SCH ×2 (09:30→20:35)
[2021-01-15] MEDS: PULMICORT NEB TX 0.5 MG NEB SCH ×2 (09:30→20:35)
[2021-01-15] MEDS: LEVAQUIN PREMIX IV 500 MG 500 MG/100 ML BAG IV SCH (10:32)
[2021-01-15] MEDS: THIAMINE HCL INJ IVP SCH ×2 (10:33→21:33)
[2021-01-15] MEDS: LOVENOX INJ 60 MG SYR SC SCH ×2 (10:34→21:32)
[2021-01-15] MEDS: [UNRECOGNIZED DRUG - OTHER] PO SCH (10:35)
[2021-01-15] MEDS: PRASTERONE 25 MG PO SCH (10:36)
[2021-01-15] MEDS: FENOFIBRATE 50 MG PO SCH (10:37)
[2021-01-15] MEDS: MAGIC MOUTHWASH MT SCH ×4 (10:38→20:32)
[2021-01-15] MEDS: QUINAPRIL 40 MG PO SCH ×2 (10:39→21:33)
[2021-01-15] MEDS: [UNRECOGNIZED DRUG - OTHER] PO SCH (10:39)
[2021-01-15] MEDS: MULT PO SCH (10:39)
[2021-01-15] MEDS: SITAGLIPTIN METFORMIN PO SCH (10:39)
[2021-01-15] MEDS: AVODART PO SCH (10:39)
[2021-01-15] MEDS: TOPROL XL PO SCH (10:40)
[2021-01-15] MEDS: ZINC SULFATE PO SCH (10:40)
[2021-01-15] MEDS: ZyrTEC TAB 10 MG PO SCH (10:41)
[2021-01-15] MEDS: LYRICA CAP 150 mg PO SCH (10:41)
[2021-01-15] MEDS: PEPCID TAB 20 MG PO SCH ×2 (10:42→21:33)
[2021-01-15] MEDS: MICRO K EXTEN CAP 10 MEQ PO SCH (10:42)
[2021-01-15] MEDS: SYNTHROID 50 mcg TAB PO SCH (10:42)
[2021-01-15] MEDS: PROTONIX TAB 40 MG PO SCH ×2 (10:43→21:33)
[2021-01-15] MEDS: VITAMIN D3 125 mcg (5,000 UNITS) PO SCH (10:43)
[2021-01-15] MEDS: DITROPAN TAB 5 MG PO SCH (10:43)
[2021-01-15] MEDS: FLUVOXAMINE MALEATE PO SCH ×2 (10:43→21:33)
--- NOTE | 2021-01-15 11:02 | PCM.PROG ---
Progress Note - Progress Note for Day of Date of Exam: 01/15/21 - Subjective Subjective: MR. STEVENSON WAS ADMITTED FOR TREATMENT OF COVID PNEUMONIA AND HYPOXIA. TODAY, HE IS ALERT AND ORIENTED, SITTING UP IN THE BED ON MORNING ROUNDS. HE CONTINUES WITH COMPLAINTS OF INTERMITTENT COUGH, SHORTNESS OF BREATH, AND WEAKNESS TODAY. HE DENIES SIGNIFICANT IMPROVEMENT SINCE YESTERDAY. HE REMAINS ON HEATED HIGH FLOW OXYGEN THIS MORNING AT 50%. HIS OXYGEN SATURATIONS HAVE BEEN ANYWHERE FROM 91-95% WHILE ON HEATED HIGH FLOW. ON EXAMINATION, HEART IS REGULAR IN RATE AND RHYTHM. BILATERAL LUNGS ARE NOTED WITH RALES THROUGHOUT. ABDOMEN IS ROUND, SOFT, AND NON-TENDER WITH NORMAL BOWEL SOUNDS NOTED IN ALL QUADRANTS. HIS VITALS THIS MORNING ARE: 97.7-65-18-95%-165/90. LABS WERE OBTAINED. ABNORMAL LAB VALUES INCLUDE THE FOLLOWING: WBC 19.7, RBC 4.61, HGB 12.9, HCT 38.8, D-DIMER 2.64, CHLORIDE 36, GLUCOSE 204, CALCIUM 8.3, ALK PHOS 44, TOTAL PROTEIN 5.1, ALBUMIN 2.2. ABG REVEALED: PH 7.470, PC02 42, P02 55, HC03 30.6, 02 SAT 90, A-A GRADIENT 249, FI02 50.0. A CHEST XRAY WAS OBTAINED AND REVEALED: Slight progression in bilateral pneumonic infiltrates compared to 1 day prior. HE IS CURRENTLY RECEIVING NS AT 75 ML/HR, REMDESIVIR 100MG IV DAILY, LEVAQUIN 500MG IV DAILY, AITHROMYCIN 500MG IV DAILY, SOLU-MEDROL 80MG IV Q8H, IVERMECTIN 15MG PO DAILY X 5 DAYS, PROTONIX 40MG PO BID, METOPROLOL 50MG PO DAILY, PEPCID 20MG PO BID, THIAMINE 200MG IV BID, ZINC 220MG PO DAILY, SINGULAIR 10MG PO HS, ZYRTEC 10MG PO DAILY, OTBS ACHS, HUMULIN R SLIDING SCALE, MELATONIN 10MG PO HS, ROBITUSSIN DM 10ML PO QID PRN, LOVENOX 60MG SC DAILY, PERIACTIN 8MG PO TID, PULMICORT NEBS BID, ALBUTEROL NEBS QID, BROVANA INHALER BID, TESSALON PERLES 200MG PO TID, LIPITOR 80MG PH HS, ASCORBIC ACID 1500MG IV Q6H, FLUVOXAMINE 50MG PO BID, ZOFRAN 4MG IV Q4H PRN NAUSEA, AMBIEN 5MG PO HS PRN, AND MAGIC MOUTHWASH QID. HIS HOME MEDICATIONS OF CELEBREX, SYNTHROID, DITROPAN, AND LYRICA WERE ALSO RESUMED. WE WILL CONTINUE WITH CURRENT PLAN OF CARE TODAY AND ATTEMPT TO WEAN DOWN OXYGEN MORE HE TOLERATES IT. OTHERWISE, WE WILL FOLLOW UP WITH AM LABS, CHEST XRAY, ABG, AND CONTINUE TO MONITOR. TIME SPENT ON CLINICAL ASSESSMENT, REVIEWING LABS AND IMAGING, DECISION MAKING, AND DOCUMENTATION GREATER THAN 45 MINUTES. - Past Medical Family Social History Past Med/Fam/Surg Hx: No changes since H&P Allergies: Allergies No Known Drug Allergies Allergy (Verified 01/06/21 14:36) - Review of Systems ROS: No change since H&P - Vital Signs and I&O's Vital Signs: Temperature 97.7 F Pulse Rate [Left Brachial] 65 Pulse Rate [Apical] 86 Pulse Rate 89 Respiratory Rate 18 Blood Pressure [Left Arm] 165/90 Blood Pressure 157/77 O2 Sat by Pulse Oximetry 95 Intake and Output: Intake & Output 01/12/21 01/13/21 01/14/21 01/15/21 11:59 11:59 11:59 11:59 Intake Total 2285 / 2285 2373 / 2373 2667 / 2667 1818 / 1818 Output Total 1825 / 1825 1225 / 1225 3150 / 3150 1525 / 1525 Balance 460 / 460 1148 / 1148 -483 / -483 293 / 293 - Physical Exam Oriented: Normal Eyes: Normal Ear: Normal Nose: Normal Throat: Normal Respiratory: Generalized, Rales Cardiovascular: Normal : Normal Auscultation: Bowel Sounds: Normal Tenderness: Normal Skin: Normal Musculoskeletal: Normal Psychiatric: Normal Mood Description: Calm Affect: Normal Speech Pattern: Clear, Appropriate - Laboratory and Diagnostics Result Diagrams: 01/15/21 05:30 01/15/21 05:30 Labs: 01/06/21 18:37 Blood Blood Culture - Final 01/06/21 18:29 Blood Blood Culture - Final 01/06/21 15:46 Blood Blood Culture - Final 01/06/21 15:35 Blood Blood Culture - Final 01/09/21 12:41 Sputum - Expectorated Sputum Sputum Culture - Final 01/09/21 12:41 Sputum - Expectorated Sputum - Final Laboratory WBC 19.7 X10^3/uL (3.6-10.0) H 01/15/21 05:30 RBC 4.61 X10^6/uL (4.7-6.0) L 01/15/21 05:30 Hgb 12.9 g/dL (13.5-18.0) L 01/15/21 05:30 Hct 38.8 % (42.0-54.0) L 01/15/21 05:30 MCV 84.2 fL (80.0-100.0) 01/15/21 05:30 MCH 28.1 pg (27.0-34.0) 01/15/21 05:30 MCHC 33.3 g/dL (33.0-35.0) 01/15/21 05:30 RDW 14.2 % (11.6-16.5) 01/15/21 05:30 Plt Count 329 X10^3/uL (150.0-450.0) 01/15/21 05:30 Plt Count Comment Adequate (ADEQUATE) 01/15/21 05:30 MPV 9.1 fL (7.4-11.0) 01/15/21 05:30 Neut % (Auto) 93.4 % (42.0-75.0) H 01/15/21 05:30 Lymph % (Auto) 1.5 % (21.0-51.0) L 01/15/21 05:30 [place] % (Auto) 4.9 % (0.0-13.0) 01/15/21 05:30 Eos % (Auto) 0.0 % (0.9-2.9) L 01/15/21 05:30 Baso % (Auto) 0.2 % (0.2-1.0) 01/15/21 05:30 Neut # (Auto) 18.3 x10^3/uL (2.2-4.8) H 01/15/21 05:30 Lymph # (Auto) 0.3 X10^3/uL (1.3-2.9) L 01/15/21 05:30 [place] # (Auto) 1.0 x10^3/uL (0.3-0.8) H 01/15/21 05:30 Eos # (Auto) 0.0 x10^3/uL (0.0-0.2) 01/15/21 05:30 Baso # (Auto) 0.0 X10^3/uL (0.0-0.1) 01/15/21 05:30 Absolute Nucleated RBC 0.0 /100WBC 01/15/21 05:30 Total Counted 100 01/15/21 05:30 Neutrophils % (Manual) 92 % (39-76) H 01/15/21 05:30 Band Neutrophils % 1 % (0-10) 01/14/21 05:19 Lymphocytes % (Manual) 2 % (13-43) L 01/15/21 05:30 Monocytes % (Manual) 6 % (4-9) 01/15/21 05:30 Metamyelocytes % 2 01/11/21 05:44 Myelocytes % 2 01/13/21 06:06 Plt Morphology Comment Normal (NORMAL) 01/15/21 05:30 RBC Morphology Normal (NORMAL) 01/15/21 05:30 D-Dimer 2.64 ug/ml (0.0-0.57) H* 01/11/21 05:44 Sample Site Rb 01/15/21 08:35 ABG pH 7.470 (7.35-7.45) H 01/15/21 08:35 ABG pCO2 42.0 mmHg (35.0-45.0) 01/15/21 08:35 ABG pO2 55.0 mmHg (80.0-100.0) L 01/15/21 08:35 ABG HCO3 30.6 mmol/L (22-26) H* 01/15/21 08:35 ABG O2 Saturation 90.0 % (90-100) 01/15/21 08:35 ABG Base Excess 6.3 mmol/L (-2.0-2.0) H 01/15/21 08:35 Mello Test Na 01/15/21 08:35 A-a Gradient 249.0 mmHg 01/15/21 08:35 FiO2 50.0 01/15/21 08:35 Blood Gas Comments Andi well gmb 01/15/21 08:35 Sodium 144 mmol/L (136-145) 01/15/21 05:30 Corrected Sodium 146 mmol/L (136-145) H 01/15/21 05:30 Potassium 4.6 mmol/L (3.5-5.1) 01/15/21 05:30 Chloride 109 mmol/L (98-107) H 01/15/21 05:30 Carbon Dioxide 28.6 mmol/L (21-32) 01/15/21 05:30 BUN 36 mg/dL (7-18) H 01/15/21 05:30 Creatinine 0.95 mg/dL (0.70-1.30) 01/15/21 05:30 Est GFR (MDRD) Af Amer > 60 (>60) 01/15/21 05:30 Est GFR (MDRD) Non-Af > 60 (>60) 01/15/21 05:30 Glucose 204 mg/dL (65-99) H 01/15/21 05:30 POC Glucose (mg/dL) 199 mg/dL (65-99) H 01/15/21 05:11 Lactic Acid 2.5 mmol/L (0.4-2.0) H 01/06/21 15:35 Calcium 8.3 mg/dL (8.5-10.1) L 01/15/21 05:30 Corrected Calcium 9.7 mg/dL (8.5-10.1) 01/15/21 05:30 Ferritin 355 ng/mL (26-388) 01/11/21 05:44 Total Bilirubin 0.50 mg/dL (0.2-1.0) 01/15/21 05:30 AST 20 Units/L (15-37) 01/15/21 05:30 ALT 37 Units/L (12-78) 01/15/21 05:30 Alkaline Phosphatase 44 Units/L (46-116) L 01/15/21 05:30 Creatine Kinase 132 Units/L (39-308) 01/13/21 21:10 CK-MB (CK-2) 1.3 ng/mL (0-4.0) 01/13/21 21:10 CK/CKMB % Calc 1.0 % (<4) 01/13/21 21:10 Troponin I < 0.02 ng/mL (0-1.5) 01/13/21 21:10 C-Reactive Protein < 0.50 mg/L (0-3.0) 01/15/21 05:30 B-Natriuretic Peptide 65.3 pg/mL (0-79) 01/15/21 05:30 Total Protein 5.1 g/dL (6.4-8.2) L 01/15/21 05:30 Albumin 2.2 g/dL (3.4-5.0) L 01/15/21 05:30 Globulin 2.9 g/dL (2.5-4.5) 01/15/21 05:30 Albumin/Globulin Ratio 0.8 Ratio (1.1-2.1) L 01/15/21 05:30 - Plan (1) Pneumonia due to COVID-19 virus Status: Acute Plan: SUPPLEMENTAL OXYGEN, IV FLUIDS, IV REMDESIVIR, IV ANTIBIOTICS, SOLU- MEDROL, RESPIRATORY THERAPY, RESPIRATORY TX (2) Hypoxia Status: Acute
[2021-01-15] MEDS: SOLU-Medrol 125 MG VIAL IVP SCH ×2 (14:03→21:32)
[2021-01-15] MEDS: SINGULAIR TAB 10 MG PO SCH (21:32)
[2021-01-15] MEDS: MELATONIN PO SCH (21:32)
[2021-01-15] MEDS: CELEBREX PO SCH (21:33)
[2021-01-15] MEDS: LIPITOR TAB 80 MG PO SCH (21:33)
[2021-01-16] MEDS: NS 1/2 1000 ML IV 1,000 ML IV SCH ×2 (00:08→05:50)
[2021-01-16] MEDS: ASCORBIC ACID INJ MULTI-DOSE VIAL 1,500 MG in NS 50 ML IV 50 ML IV SCH ×4 (02:30→21:32)
[2021-01-16] MEDS ORDERED: NS 1/2 1000 ML IV 1,000 ML IV ONE ×2 (05:18→22:45)
[2021-01-16 05:20] LABS: ABG BASE EXCESS 5.3 mmol/L (-2.0-2.0); ABG HCO3 29.9 mmol/L (22-26)
[2021-01-16 05:21] LABS: ABG ALLEN TEST POS
[2021-01-16] MEDS: PERIACTIN TAB 4 MG PO SCH ×3 (05:49→21:30)
[2021-01-16] MEDS: TESSALON PERLES PO SCH ×3 (05:50→21:31)
[2021-01-16] MEDS: SOLU-Medrol 125 MG VIAL IVP SCH ×3 (05:50→21:31)
[2021-01-16] MEDS: HumuLIN R SUBCUT PRN ×3 (05:51→17:19)
[2021-01-16 06:18] LABS: BASOPHILS # (AUTO) 0.1 X10^3/uL (0.0-0.1); BASOPHILS % (AUTO) 0.5 % (0.2-1.0); EOSINOPHILS % (AUTO) 0.1 % (0.9-2.9); HEMATOCRIT 37.4 % (42.0-54.0); HEMOGLOBIN 12.4 g/dL (13.5-18.0); LYMPHOCYTES # (AUTO) 0.2 X10^3/uL (1.3-2.9); LYMPHOCYTES % (AUTO) 1.4 % (21.0-51.0); MEAN CORPUSCULAR HGB CONC 33.2 g/dL (33.0-35.0); MEAN CORPUSCULAR VOLUME 84.3 fL (80.0-100.0); MONOCYTES # (AUTO) 0.4 x10^3/uL (0.3-0.8); MONOCYTES % (AUTO) 2.2 % (0.0-13.0); NEUTROPHILS # (AUTO) 16.4 x10^3/uL (2.2-4.8); NEUTROPHILS % (AUTO) 95.8 % (42.0-75.0); PLATELET COUNT 280 X10^3/uL (150.0-450.0); RED BLOOD COUNT 4.44 X10^6/uL (4.7-6.0); RED CELL DISTRIBUTION WIDTH 14.6 % (11.6-16.5); WHITE BLOOD COUNT 17.1 X10^3/uL (3.6-10.0)
--- NOTE | 2021-01-16 06:21 | RAD ---
HISTORYSOBSTUDYAP chestCOMPARISONAugust 2020FINDINGSHeart size similar and upper normal. There is no change in appearance of the bilateral airspace infiltrates/consolidation. No developing pleural fluid or extrapulmonary air collection identified.IMPRESSIONNo change in appearance of the bilateral pneumonia.Electronically signed by: ELÍAS VASQUEZ (Jan 16, 2021 06:20:30)
[2021-01-16 06:26] LABS: ALANINE AMINOTRANSFERASE 33 Units/L (12-78); ALBUMIN 2.1 g/dL (3.4-5.0); ALKALINE PHOSPHATASE 41 Units/L (46-116); ASPARTATE AMINO TRANSFERASE 18 Units/L (15-37); BLOOD UREA NITROGEN 32 mg/dL (7-18); CALCIUM 8.2 mg/dL (8.5-10.1); CARBON DIOXIDE 31.3 mmol/L (21-32); CHLORIDE 108 mmol/L (98-107); COR CA(FOR HYPOALB) 9.7 mg/dL (8.5-10.1); COR NA(FOR HYPERGLY) 145 mmol/L (136-145); CREATININE 0.93 mg/dL (0.70-1.30); SODIUM 142 mmol/L (136-145); TOTAL PROTEIN 4.9 g/dL (6.4-8.2); eGFR NON BLACK RACES > 60 (>60)
[2021-01-16 08:06] LABS: PLATELET MORPHOLOGY COMMENT NORMAL (NORMAL)
[2021-01-16] MEDS: ACCUNEB 1.25 MG NEBULE NEB SCH ×4 (09:10→20:15)
[2021-01-16] MEDS: BROVANA IN SCH ×2 (09:10→20:15)
[2021-01-16] MEDS: PULMICORT NEB TX 0.5 MG NEB SCH ×2 (09:10→20:15)
[2021-01-16] MEDS: LOVENOX INJ 60 MG SYR SC SCH ×2 (10:02→21:29)
[2021-01-16] MEDS: LEVAQUIN PREMIX IV 500 MG 500 MG/100 ML BAG IV SCH (10:02)
[2021-01-16] MEDS: DITROPAN TAB 5 MG PO SCH (10:03)
[2021-01-16] MEDS: PROTONIX TAB 40 MG PO SCH ×2 (10:03→21:30)
[2021-01-16] MEDS: LYRICA CAP 150 mg PO SCH (10:03)
[2021-01-16] MEDS: VITAMIN D3 125 mcg (5,000 UNITS) PO SCH (10:03)
[2021-01-16] MEDS: TOPROL XL PO SCH (10:03)
[2021-01-16] MEDS: MICRO K EXTEN CAP 10 MEQ PO SCH (10:03)
[2021-01-16] MEDS: SYNTHROID 50 mcg TAB PO SCH (10:04)
[2021-01-16] MEDS: PEPCID TAB 20 MG PO SCH ×2 (10:04→21:31)
[2021-01-16] MEDS: ZyrTEC TAB 10 MG PO SCH (10:04)
[2021-01-16] MEDS: THIAMINE HCL INJ IVP SCH ×2 (10:07→21:32)
[2021-01-16] MEDS: FENOFIBRATE 50 MG PO SCH (10:14)
[2021-01-16] MEDS: QUINAPRIL 40 MG PO SCH ×2 (10:15→21:33)
[2021-01-16] MEDS: SITAGLIPTIN METFORMIN PO SCH (10:15)
[2021-01-16] MEDS: [UNRECOGNIZED DRUG - OTHER] PO SCH (10:15)
[2021-01-16] MEDS: MULT PO SCH (10:15)
[2021-01-16] MEDS: [UNRECOGNIZED DRUG - OTHER] PO SCH (10:16)
[2021-01-16] MEDS: MAGIC MOUTHWASH MT SCH ×4 (10:16→21:33)
[2021-01-16] MEDS: PRASTERONE 25 MG PO SCH (10:16)
--- NOTE | 2021-01-16 10:22 | PCM.PROG ---
Progress Note - Progress Note for Day of Date of Exam: 01/16/21 - Subjective Subjective: MR. STEVENSON WAS ADMITTED FOR TREATMENT OF COVID PNEUMONIA AND HYPOXIA. TODAY, HE IS ALERT AND ORIENTED, SITTING UP IN THE BED ON MORNING ROUNDS. HE CONTINUES WITH COMPLAINTS OF SHORTNESS OF BREATH AT TIMES AND WEAKNESS TODAY. HE REPORTS SLIGHT IMPROVEMENT IN SYMPTOMS TODAY. HE REMAINS ON HEATED HIGH FLOW OXYGEN THIS MORNING AT 45%. HIS OXYGEN SATURATIONS HAVE BEEN ANYWHERE FROM 89- 95% WHILE ON HEATED HIGH FLOW. ON EXAMINATION, HEART IS REGULAR IN RATE AND RHYTHM. BILATERAL LUNGS ARE NOTED WITH RALES THROUGHOUT. ABDOMEN IS ROUND, SOFT, AND NON-TENDER WITH NORMAL BOWEL SOUNDS NOTED IN ALL QUADRANTS. HIS VITALS THIS MORNING ARE: 98.0-79-16-94%-170/98. LABS WERE OBTAINED. ABNORMAL LAB VALUES INCLUDE THE FOLLOWING: WBC 17.1, RBC 4.44, HGB 12.4, HCT 37.4, D-DIMER 2.64, CHLORIDE 108, BUN 32, GLUCOSE 242, CALCIUM 8.2, ALK PHOS 41, BNP 85.6, TOTAL PROTEIN 4.9, ALBUMIN 2.1. ABG REVEALED: PH 7.450, PC02 43, P02 65, HC03 29.9, 02 SAT 93, BASE EXCESS 5.3, A-A GRADINET 202, FI02 45. A CHEST XRAY WAS OBTAINED AND REVEALED: Heart size similar and upper normal. There is no change in appearance of the bilateral airspace infiltrates/consolidation. No developing pleural fluid or extrapulmonary air collection identified. HE IS CURRENTLY RECEIVING NS AT 75 ML/HR, LEVAQUIN 500MG IV DAILY, AITHROMYCIN 500MG IV DAILY, SOLU-MEDROL 80MG IV Q8H, PROTONIX 40MG PO BID, METOPROLOL 50MG PO DAILY, PEPCID 20MG PO BID, THIAMINE 200MG IV BID, ZINC 220MG PO DAILY, SINGULAIR 10MG PO HS, ZYRTEC 10MG PO DAILY, OTBS ACHS, HUMULIN R SLIDING SCALE, MELATONIN 10MG PO HS, ROBITUSSIN DM 10ML PO QID PRN, LOVENOX 60MG SC DAILY, PERIACTIN 8MG PO TID, PULMICORT NEBS BID, ALBUTEROL NEBS QID, BROVANA INHALER BID, TESSALON PERLES 200MG PO TID, LIPITOR 80MG PH HS, ASCORBIC ACID 1500MG IV Q6H, FLUVOXAMINE 50MG PO BID, ZOFRAN 4MG IV Q4H PRN NAUSEA, AMBIEN 5MG PO HS PRN, AND MAGIC MOUTHWASH QID. HIS HOME MEDICATIONS OF CELEBREX, SYNTHROID, DITROPAN, AND LYRICA WERE ALSO RESUMED. WE WILL CONTINUE WITH CURRENT PLAN OF CARE TODAY AND ATTEMPT TO WEAN DOWN OXYGEN MORE HE TOLERATES IT. OTHERWISE, WE WILL FOLLOW UP WITH AM LABS, CHEST XRAY, ABG, AND CONTINUE TO MONITOR. TIME SPENT ON CLINICAL ASSESSMENT, REVIEWING LABS AND IMAGING, DECISION MAKING, AND DOCUMENTATION GREATER THAN 45 MINUTES. - Past Medical Family Social History Past Med/Fam/Surg Hx: No changes since H&P Allergies: Allergies No Known Drug Allergies Allergy (Verified 01/06/21 14:36) - Review of Systems ROS: No change since H&P - Vital Signs and I&O's Vital Signs: Temperature 98.0 F Pulse Rate [Left Brachial] 79 Pulse Rate [Apical] 86 Pulse Rate 76 Respiratory Rate 16 Blood Pressure [Left Arm] 170/98 Blood Pressure 157/77 O2 Sat by Pulse Oximetry 94 Intake and Output: Intake & Output 01/13/21 01/14/21 01/15/21 01/16/21 11:59 11:59 11:59 11:59 Intake Total 2373 / 2373 2667 / 2667 1818 / 1818 3271 / 3271 Output Total 1225 / 1225 3150 / 3150 1525 / 1525 2500 / 2500 Balance 1148 / 1148 -483 / -483 293 / 293 771 / 771 - Physical Exam Oriented: Normal Eyes: Normal Ear: Normal Nose: Normal Throat: Normal Respiratory: Generalized, Rales Cardiovascular: Normal : Normal Auscultation: Bowel Sounds: Normal Palpation: Normal Tenderness: Normal Skin: Normal Musculoskeletal: Normal Psychiatric: Normal Mood Description: Calm Affect: Normal Speech Pattern: Clear, Appropriate - Laboratory and Diagnostics Result Diagrams: 01/16/21 05:37 01/16/21 05:37 Labs: 01/06/21 18:37 Blood Blood Culture - Final 01/06/21 18:29 Blood Blood Culture - Final 01/06/21 15:46 Blood Blood Culture - Final 01/06/21 15:35 Blood Blood Culture - Final 01/09/21 12:41 Sputum - Expectorated Sputum Sputum Culture - Final 01/09/21 12:41 Sputum - Expectorated Sputum - Final Laboratory WBC 17.1 X10^3/uL (3.6-10.0) H 01/16/21 05:37 RBC 4.44 X10^6/uL (4.7-6.0) L 01/16/21 05:37 Hgb 12.4 g/dL (13.5-18.0) L 01/16/21 05:37 Hct 37.4 % (42.0-54.0) L 01/16/21 05:37 MCV 84.3 fL (80.0-100.0) 01/16/21 05:37 MCH 28.0 pg (27.0-34.0) 01/16/21 05:37 MCHC 33.2 g/dL (33.0-35.0) 01/16/21 05:37 RDW 14.6 % (11.6-16.5) 01/16/21 05:37 Plt Count 280 X10^3/uL (150.0-450.0) 01/16/21 05:37 Plt Count Comment Adequate (ADEQUATE) 01/16/21 05:37 MPV 9.0 fL (7.4-11.0) 01/16/21 05:37 Neut % (Auto) 95.8 % (42.0-75.0) H 01/16/21 05:37 Lymph % (Auto) 1.4 % (21.0-51.0) L 01/16/21 05:37 [place] % (Auto) 2.2 % (0.0-13.0) 01/16/21 05:37 Eos % (Auto) 0.1 % (0.9-2.9) L 01/16/21 05:37 Baso % (Auto) 0.5 % (0.2-1.0) 01/16/21 05:37 Neut # (Auto) 16.4 x10^3/uL (2.2-4.8) H 01/16/21 05:37 Lymph # (Auto) 0.2 X10^3/uL (1.3-2.9) L 01/16/21 05:37 [place] # (Auto) 0.4 x10^3/uL (0.3-0.8) 01/16/21 05:37 Eos # (Auto) 0.0 x10^3/uL (0.0-0.2) 01/16/21 05:37 Baso # (Auto) 0.1 X10^3/uL (0.0-0.1) 01/16/21 05:37 Absolute Nucleated RBC 0.0 /100WBC 01/16/21 05:37 Total Counted 100 01/16/21 05:37 Neutrophils % (Manual) 94 % (39-76) H 01/16/21 05:37 Band Neutrophils % 1 % (0-10) 01/14/21 05:19 Lymphocytes % (Manual) 3 % (13-43) L 01/16/21 05:37 Monocytes % (Manual) 3 % (4-9) L 01/16/21 05:37 Metamyelocytes % 2 01/11/21 05:44 Myelocytes % 2 01/13/21 06:06 Plt Morphology Comment Normal (NORMAL) 01/16/21 05:37 RBC Morphology Normal (NORMAL) 01/16/21 05:37 D-Dimer 2.64 ug/ml (0.0-0.57) H* 01/11/21 05:44 Sample Site R rad 01/16/21 05:15 ABG pH 7.450 (7.35-7.45) 01/16/21 05:15 ABG pCO2 43.0 mmHg (35.0-45.0) 01/16/21 05:15 ABG pO2 65.0 mmHg (80.0-100.0) L 01/16/21 05:15 ABG HCO3 29.9 mmol/L (22-26) H 01/16/21 05:15 ABG O2 Saturation 93.0 % (90-100) 01/16/21 05:15 ABG Base Excess 5.3 mmol/L (-2.0-2.0) H 01/16/21 05:15 Mello Test Pos 01/16/21 05:15 A-a Gradient 202.0 mmHg 01/16/21 05:15 FiO2 45.0 01/16/21 05:15 Blood Gas Comments To well 01/16/21 05:15 Sodium 142 mmol/L (136-145) 01/16/21 05:37 Corrected Sodium 145 mmol/L (136-145) 01/16/21 05:37 Potassium 4.4 mmol/L (3.5-5.1) 01/16/21 05:37 Chloride 108 mmol/L (98-107) H 01/16/21 05:37 Carbon Dioxide 31.3 mmol/L (21-32) 01/16/21 05:37 BUN 32 mg/dL (7-18) H 01/16/21 05:37 Creatinine 0.93 mg/dL (0.70-1.30) 01/16/21 05:37 Est GFR (MDRD) Af Amer > 60 (>60) 01/16/21 05:37 Est GFR (MDRD) Non-Af > 60 (>60) 01/16/21 05:37 Glucose 242 mg/dL (65-99) H 01/16/21 05:37 POC Glucose (mg/dL) 218 mg/dL (65-99) H 01/16/21 05:26 Lactic Acid 2.5 mmol/L (0.4-2.0) H 01/06/21 15:35 Calcium 8.2 mg/dL (8.5-10.1) L 01/16/21 05:37 Corrected Calcium 9.7 mg/dL (8.5-10.1) 01/16/21 05:37 Ferritin 355 ng/mL (26-388) 01/11/21 05:44 Total Bilirubin 0.40 mg/dL (0.2-1.0) 01/16/21 05:37 AST 18 Units/L (15-37) 01/16/21 05:37 ALT 33 Units/L (12-78) 01/16/21 05:37 Alkaline Phosphatase 41 Units/L (46-116) L 01/16/21 05:37 Creatine Kinase 132 Units/L (39-308) 01/13/21 21:10 CK-MB (CK-2) 1.3 ng/mL (0-4.0) 01/13/21 21:10 CK/CKMB % Calc 1.0 % (<4) 01/13/21 21:10 Troponin I < 0.02 ng/mL (0-1.5) 01/13/21 21:10 C-Reactive Protein < 0.50 mg/L (0-3.0) 01/16/21 05:37 B-Natriuretic Peptide 85.6 pg/mL (0-79) H 01/16/21 05:37 Total Protein 4.9 g/dL (6.4-8.2) L 01/16/21 05:37 Albumin 2.1 g/dL (3.4-5.0) L 01/16/21 05:37 Globulin 2.8 g/dL (2.5-4.5) 01/16/21 05:37 Albumin/Globulin Ratio 0.8 Ratio (1.1-2.1) L 01/16/21 05:37 - Plan (1) Pneumonia due to COVID-19 virus Status: Acute Plan: SUPPLEMENTAL OXYGEN, IV FLUIDS, IV ANTIBIOTICS, SOLU-MEDROL, RESPIRATORY THERAPY, RESPIRATORY TX (2) Hypoxia Status: Acute
[2021-01-16] MEDS: AVODART PO SCH (11:48)
[2021-01-16] MEDS: ZINC SULFATE PO SCH (11:49)
[2021-01-16] MEDS: FLUVOXAMINE MALEATE PO SCH ×2 (11:49→21:32)
[2021-01-16] MEDS: LIPITOR TAB 80 MG PO SCH (21:30)
[2021-01-16] MEDS: MELATONIN PO SCH (21:30)
[2021-01-16] MEDS: CELEBREX PO SCH (21:30)
[2021-01-16] MEDS: SINGULAIR TAB 10 MG PO SCH (21:30)
[2021-01-16] MEDS: ROBITUSSIN DM PO PRN (21:31)
[2021-01-17] MEDS: NS 1/2 1000 ML IV 1,000 ML IV SCH ×3 (01:51→14:00)
[2021-01-17] MEDS: ASCORBIC ACID INJ MULTI-DOSE VIAL 1,500 MG in NS 50 ML IV 50 ML IV SCH ×4 (03:31→20:17)
[2021-01-17 05:26] LABS: BASOPHILS % (AUTO) 0.2 % (0.2-1.0); HEMATOCRIT 39.8 % (42.0-54.0); HEMOGLOBIN 13.2 g/dL (13.5-18.0); LYMPHOCYTES # (AUTO) 0.2 X10^3/uL (1.3-2.9); LYMPHOCYTES % (AUTO) 1.1 % (21.0-51.0); MEAN CORPUSCULAR HEMOGLOBIN 27.9 pg (27.0-34.0); MEAN CORPUSCULAR HGB CONC 33.2 g/dL (33.0-35.0); MEAN CORPUSCULAR VOLUME 84.1 fL (80.0-100.0); MONOCYTES # (AUTO) 0.9 x10^3/uL (0.3-0.8); MONOCYTES % (AUTO) 4.2 % (0.0-13.0); NEUTROPHILS # (AUTO) 19.8 x10^3/uL (2.2-4.8); NEUTROPHILS % (AUTO) 94.5 % (42.0-75.0); PLATELET COUNT 286 X10^3/uL (150.0-450.0); RED BLOOD COUNT 4.73 X10^6/uL (4.7-6.0); RED CELL DISTRIBUTION WIDTH 14.2 % (11.6-16.5)
[2021-01-17 05:43] LABS: ALANINE AMINOTRANSFERASE 34 Units/L (12-78); ALBUMIN 2.3 g/dL (3.4-5.0); ALKALINE PHOSPHATASE 43 Units/L (46-116); ASPARTATE AMINO TRANSFERASE 23 Units/L (15-37); BLOOD UREA NITROGEN 29 mg/dL (7-18); CALCIUM 8.5 mg/dL (8.5-10.1); CARBON DIOXIDE 28.4 mmol/L (21-32); CHLORIDE 108 mmol/L (98-107); COR CA(FOR HYPOALB) 9.9 mg/dL (8.5-10.1); COR NA(FOR HYPERGLY) 145 mmol/L (136-145); CREATININE 0.94 mg/dL (0.70-1.30); SODIUM 142 mmol/L (136-145); TOTAL PROTEIN 5.2 g/dL (6.4-8.2); eGFR NON BLACK RACES > 60 (>60)
[2021-01-17] MEDS: TESSALON PERLES PO SCH ×3 (05:48→21:43)
[2021-01-17] MEDS: ROBITUSSIN DM PO PRN ×2 (05:48→20:19)
[2021-01-17] MEDS: SOLU-Medrol 125 MG VIAL IVP SCH ×2 (05:49→20:22)
[2021-01-17] MEDS: PERIACTIN TAB 4 MG PO SCH (05:49)
[2021-01-17 06:14] LABS: PLATELET MORPHOLOGY COMMENT NORMAL (NORMAL)
[2021-01-17] MEDS: FENOFIBRATE 50 MG PO SCH (09:00)
[2021-01-17] MEDS: VITAMIN D3 125 mcg (5,000 UNITS) PO SCH (09:30)
[2021-01-17] MEDS: AVODART PO SCH (09:55)
[2021-01-17] MEDS: ZyrTEC TAB 10 MG PO SCH (09:56)
[2021-01-17] MEDS: MICRO K EXTEN CAP 10 MEQ PO SCH (09:56)
[2021-01-17] MEDS: ZINC SULFATE PO SCH (09:56)
[2021-01-17] MEDS: PROTONIX TAB 40 MG PO SCH ×2 (09:57→20:18)
[2021-01-17] MEDS: SYNTHROID 50 mcg TAB PO SCH (09:57)
[2021-01-17] MEDS: TOPROL XL PO SCH (09:58)
[2021-01-17] MEDS: PEPCID TAB 20 MG PO SCH ×2 (09:58→20:18)
[2021-01-17] MEDS: FLUVOXAMINE MALEATE PO SCH ×2 (09:58→20:18)
[2021-01-17] MEDS: DITROPAN TAB 5 MG PO SCH (09:59)
[2021-01-17] MEDS: [UNRECOGNIZED DRUG - OTHER] PO SCH (10:12)
[2021-01-17] MEDS: MULT PO SCH (10:12)
[2021-01-17] MEDS: SITAGLIPTIN METFORMIN PO SCH (10:12)
[2021-01-17] MEDS: PRASTERONE 25 MG PO SCH (10:13)
[2021-01-17] MEDS: QUINAPRIL 40 MG PO SCH ×2 (10:13→20:20)
[2021-01-17] MEDS: LYRICA CAP 150 mg PO SCH (10:13)
[2021-01-17] MEDS: [UNRECOGNIZED DRUG - OTHER] PO SCH (10:13)
[2021-01-17] MEDS: MAGIC MOUTHWASH MT SCH ×4 (10:14→20:19)
[2021-01-17] MEDS: THIAMINE HCL INJ IVP SCH ×2 (11:00→20:20)
[2021-01-17] MEDS: LEVAQUIN PREMIX IV 500 MG 500 MG/100 ML BAG IV SCH (11:31)
[2021-01-17] MEDS: HALDOL INJ IVP PRN (12:03)
[2021-01-17] MEDS: LOVENOX INJ 60 MG SYR SC SCH ×2 (14:14→20:17)
[2021-01-17] MEDS: ACCUNEB 1.25 MG NEBULE NEB SCH ×2 (17:23→18:53)
[2021-01-17] MEDS: BROVANA IN SCH (17:23)
[2021-01-17] MEDS: PULMICORT NEB TX 0.5 MG NEB SCH (17:24)
[2021-01-17] MEDS: CELEBREX PO SCH (20:19)
[2021-01-17] MEDS: LIPITOR TAB 80 MG PO SCH (20:19)
[2021-01-17] MEDS: SINGULAIR TAB 10 MG PO SCH (20:19)
[2021-01-17] MEDS: MELATONIN PO SCH (20:19)
[2021-01-18] MEDS ORDERED: NS 1/2 1000 ML IV 1,000 ML IV ONE (00:30)
[2021-01-18] MEDS: ASCORBIC ACID INJ MULTI-DOSE VIAL 1,500 MG in NS 50 ML IV 50 ML IV SCH ×4 (02:07→21:11)
[2021-01-18] MEDS: NS 1/2 1000 ML IV 1,000 ML IV SCH ×2 (02:07→21:13)
[2021-01-18] MEDS: ACCUNEB 1.25 MG NEBULE NEB SCH ×5 (02:17→21:55)
[2021-01-18] MEDS: BROVANA IN SCH ×3 (02:17→21:55)
[2021-01-18] MEDS: PULMICORT NEB TX 0.5 MG NEB SCH ×3 (02:17→21:55)
[2021-01-18] MEDS: ROBITUSSIN DM PO PRN ×2 (05:21→21:10)
[2021-01-18] MEDS: TESSALON PERLES PO SCH ×3 (05:21→21:12)
[2021-01-18 05:57] LABS: ABG ALLEN TEST POS; ABG BASE EXCESS 4.4 mmol/L (-2.0-2.0); ABG HCO3 28.4 mmol/L (22-26)
[2021-01-18] MEDS: HumuLIN R SUBCUT PRN (06:11)
[2021-01-18 06:43] LABS: BASOPHILS # (AUTO) 0.1 X10^3/uL (0.0-0.1); BASOPHILS % (AUTO) 0.4 % (0.2-1.0); EOSINOPHILS % (AUTO) 0.1 % (0.9-2.9); HEMATOCRIT 37.8 % (42.0-54.0); HEMOGLOBIN 12.7 g/dL (13.5-18.0); LYMPHOCYTES # (AUTO) 0.3 X10^3/uL (1.3-2.9); LYMPHOCYTES % (AUTO) 1.5 % (21.0-51.0); MEAN CORPUSCULAR HEMOGLOBIN 28.6 pg (27.0-34.0); MEAN CORPUSCULAR HGB CONC 33.7 g/dL (33.0-35.0); MEAN CORPUSCULAR VOLUME 85.1 fL (80.0-100.0); MEAN PLATELET VOLUME 9.4 fL (7.4-11.0); MONOCYTES # (AUTO) 0.8 x10^3/uL (0.3-0.8); MONOCYTES % (AUTO) 4.2 % (0.0-13.0); NEUTROPHILS % (AUTO) 93.8 % (42.0-75.0); PLATELET COUNT 214 X10^3/uL (150.0-450.0); RED BLOOD COUNT 4.44 X10^6/uL (4.7-6.0); RED CELL DISTRIBUTION WIDTH 14.4 % (11.6-16.5); WHITE BLOOD COUNT 19.2 X10^3/uL (3.6-10.0)
[2021-01-18 06:45] LABS: ALANINE AMINOTRANSFERASE 33 Units/L (12-78); ALBUMIN 2.2 g/dL (3.4-5.0); ALKALINE PHOSPHATASE 43 Units/L (46-116); ASPARTATE AMINO TRANSFERASE 22 Units/L (15-37); BLOOD UREA NITROGEN 25 mg/dL (7-18); CALCIUM 8.5 mg/dL (8.5-10.1); CARBON DIOXIDE 29.9 mmol/L (21-32); CHLORIDE 105 mmol/L (98-107); COR CA(FOR HYPOALB) 9.9 mg/dL (8.5-10.1); COR NA(FOR HYPERGLY) 141 mmol/L (136-145); CREATININE 0.84 mg/dL (0.70-1.30); SODIUM 138 mmol/L (136-145); TOTAL PROTEIN 4.8 g/dL (6.4-8.2); eGFR NON BLACK RACES > 60 (>60)
[2021-01-18 08:16] LABS: ANISOCYTOSIS SLIGHT; PLATELET MORPHOLOGY COMMENT NORMAL (NORMAL)
[2021-01-18] MEDS: LEVAQUIN PREMIX IV 500 MG 500 MG/100 ML BAG IV SCH (09:36)
[2021-01-18] MEDS: FLUVOXAMINE MALEATE PO SCH ×2 (09:38→21:11)
[2021-01-18] MEDS: AVODART PO SCH (09:38)
[2021-01-18] MEDS: PEPCID TAB 20 MG PO SCH ×2 (09:39→21:10)
[2021-01-18] MEDS: LYRICA CAP 150 mg PO SCH (09:39)
[2021-01-18] MEDS: MICRO K EXTEN CAP 10 MEQ PO SCH (09:39)
[2021-01-18] MEDS: VITAMIN D3 125 mcg (5,000 UNITS) PO SCH (09:39)
[2021-01-18] MEDS: TOPROL XL PO SCH (09:39)
[2021-01-18] MEDS: DITROPAN TAB 5 MG PO SCH (09:40)
[2021-01-18] MEDS: ZyrTEC TAB 10 MG PO SCH (09:40)
[2021-01-18] MEDS: ZINC SULFATE PO SCH (09:40)
[2021-01-18] MEDS: PROTONIX TAB 40 MG PO SCH ×2 (09:40→21:12)
[2021-01-18] MEDS: SITAGLIPTIN METFORMIN PO SCH (09:41)
[2021-01-18] MEDS: MULT PO SCH (09:41)
[2021-01-18] MEDS: [UNRECOGNIZED DRUG - OTHER] PO SCH (09:41)
[2021-01-18] MEDS: QUINAPRIL 40 MG PO SCH ×2 (09:41→21:15)
[2021-01-18] MEDS: THIAMINE HCL INJ IVP SCH ×2 (09:41→21:12)
[2021-01-18] MEDS: PRASTERONE 25 MG PO SCH (09:41)
[2021-01-18] MEDS: SYNTHROID 50 mcg TAB PO SCH (09:42)
[2021-01-18] MEDS: MAGIC MOUTHWASH MT SCH ×4 (09:42→21:12)
[2021-01-18] MEDS: SOLU-Medrol 125 MG VIAL IVP SCH ×2 (09:42→21:14)
[2021-01-18] MEDS: [UNRECOGNIZED DRUG - OTHER] PO SCH (09:42)
[2021-01-18] MEDS: FENOFIBRATE 50 MG PO SCH (09:43)
[2021-01-18] MEDS: LOVENOX INJ 60 MG SYR SC SCH ×2 (09:43→21:13)
[2021-01-18] MEDS: HALDOL INJ IVP PRN (17:51)
[2021-01-18] MEDS: SINGULAIR TAB 10 MG PO SCH (21:10)
[2021-01-18] MEDS: CELEBREX PO SCH (21:10)
[2021-01-18] MEDS: LIPITOR TAB 80 MG PO SCH (21:11)
[2021-01-18] MEDS: MELATONIN PO SCH (21:11)
[2021-01-19] MEDS: ASCORBIC ACID INJ MULTI-DOSE VIAL 1,500 MG in NS 50 ML IV 50 ML IV SCH ×2 (03:00→08:30)
[2021-01-19 05:42] LABS: BASOPHILS % (AUTO) 0.1 % (0.2-1.0); EOSINOPHILS # (AUTO) 0.1 x10^3/uL (0.0-0.2); EOSINOPHILS % (AUTO) 0.4 % (0.9-2.9); HEMATOCRIT 42.4 % (42.0-54.0); HEMOGLOBIN 14.1 g/dL (13.5-18.0); LYMPHOCYTES # (AUTO) 0.3 X10^3/uL (1.3-2.9); LYMPHOCYTES % (AUTO) 1.6 % (21.0-51.0); MEAN CORPUSCULAR HEMOGLOBIN 28.2 pg (27.0-34.0); MEAN CORPUSCULAR HGB CONC 33.3 g/dL (33.0-35.0); MEAN CORPUSCULAR VOLUME 84.6 fL (80.0-100.0); MEAN PLATELET VOLUME 9.1 fL (7.4-11.0); MONOCYTES # (AUTO) 0.8 x10^3/uL (0.3-0.8); MONOCYTES % (AUTO) 3.9 % (0.0-13.0); NEUTROPHILS # (AUTO) 19.2 x10^3/uL (2.2-4.8); PLATELET COUNT 269 X10^3/uL (150.0-450.0); RED BLOOD COUNT 5.02 X10^6/uL (4.7-6.0); RED CELL DISTRIBUTION WIDTH 14.6 % (11.6-16.5); WHITE BLOOD COUNT 20.5 X10^3/uL (3.6-10.0)
[2021-01-19] MEDS: NS 1/2 1000 ML IV 1,000 ML IV SCH (06:08)
[2021-01-19] MEDS: TESSALON PERLES PO SCH ×2 (06:09→13:25)
[2021-01-19 06:12] LABS: ALANINE AMINOTRANSFERASE 38 Units/L (12-78); ALBUMIN 2.6 g/dL (3.4-5.0); ALKALINE PHOSPHATASE 41 Units/L (46-116); ASPARTATE AMINO TRANSFERASE 26 Units/L (15-37); BLOOD UREA NITROGEN 27 mg/dL (7-18); CALCIUM 8.8 mg/dL (8.5-10.1); CARBON DIOXIDE 29.8 mmol/L (21-32); CHLORIDE 102 mmol/L (98-107); COR CA(FOR HYPOALB) 9.9 mg/dL (8.5-10.1); COR NA(FOR HYPERGLY) 142 mmol/L (136-145); CREATININE 1.08 mg/dL (0.70-1.30); SODIUM 139 mmol/L (136-145); TOTAL PROTEIN 5.9 g/dL (6.4-8.2); eGFR NON BLACK RACES > 60 (>60)
[2021-01-19 06:42] LABS: PLATELET MORPHOLOGY COMMENT NORMAL (NORMAL)
[2021-01-19] MEDS: LOVENOX INJ 60 MG SYR SC SCH (08:30)
[2021-01-19] MEDS: ZINC SULFATE PO SCH (08:30)
[2021-01-19] MEDS: ZyrTEC TAB 10 MG PO SCH (08:31)
[2021-01-19] MEDS: VITAMIN D3 125 mcg (5,000 UNITS) PO SCH (08:31)
[2021-01-19] MEDS: PEPCID TAB 20 MG PO SCH (08:31)
[2021-01-19] MEDS: LYRICA CAP 150 mg PO SCH (08:32)
[2021-01-19] MEDS: AVODART PO SCH (08:32)
[2021-01-19] MEDS: DITROPAN TAB 5 MG PO SCH (08:32)
[2021-01-19] MEDS: MAGIC MOUTHWASH MT SCH ×2 (08:32→13:24)
[2021-01-19] MEDS: SYNTHROID 50 mcg TAB PO SCH (08:32)
[2021-01-19] MEDS: MICRO K EXTEN CAP 10 MEQ PO SCH (08:33)
[2021-01-19] MEDS: TOPROL XL PO SCH (08:33)
[2021-01-19] MEDS: THIAMINE HCL INJ IVP SCH (08:33)
[2021-01-19] MEDS: FLUVOXAMINE MALEATE PO SCH (08:33)
[2021-01-19] MEDS: PROTONIX TAB 40 MG PO SCH (08:33)
[2021-01-19] MEDS: FENOFIBRATE 50 MG PO SCH (08:34)
[2021-01-19] MEDS: [UNRECOGNIZED DRUG - OTHER] PO SCH (08:34)
[2021-01-19] MEDS: QUINAPRIL 40 MG PO SCH (08:35)
[2021-01-19] MEDS: SITAGLIPTIN METFORMIN PO SCH (08:35)
[2021-01-19] MEDS: [UNRECOGNIZED DRUG - OTHER] PO SCH (08:35)
[2021-01-19] MEDS: MULT PO SCH (08:35)
[2021-01-19] MEDS: PRASTERONE 25 MG PO SCH (08:35)
[2021-01-19] MEDS: HALDOL INJ IVP PRN (08:38)
[2021-01-19] MEDS: LEVAQUIN PREMIX IV 500 MG 500 MG/100 ML BAG IV SCH (10:38)
[2021-01-19] MEDS: ACCUNEB 1.25 MG NEBULE NEB SCH ×2 (10:50→13:55)
[2021-01-19] MEDS: BROVANA IN SCH (10:50)
[2021-01-19] MEDS: PULMICORT NEB TX 0.5 MG NEB SCH (10:50)
[2021-01-19] MEDS: HumuLIN R SUBCUT PRN (12:15)
[2021-01-19 13:17] VITALS: BP 146/75
== END 2021-01-19 15:10 | disposition home health service (06) | DRG 178 ==
LOC: ER 15:16 → OBS 17:40 → MED/SURG 01-07 12:00
PROVIDERS: ADMIT Internal Medicine; ATTEND Internal Medicine
DX: I10 Essential (primary) hypertension; R45.1 Restlessness and agitation; R09.02 Hypoxemia; U07.1 COVID-19; E11.9 Type 2 diabetes mellitus without complications; K21.9 Gastro-esophageal reflux disease without esophagitis; E78.5 Hyperlipidemia, unspecified; D68.9 Coagulation defect, unspecified; R07.89 Other chest pain; R41.82 Altered mental status, unspecified; R26.81 Unsteadiness on feet

== ENCOUNTER 2021-02-01 15:08 | Inpatient (IN) ==
--- NOTE | 2021-02-01 18:18 | RAD ---
HISTORY:ConstipationStudy: KUBComparison:CT abdomen 10/24/2020FINDINGS/IMPRESSION:There is moderate retained stool throughout the colon. Overall bowel gas pattern is nonobstructive. No renal calculi identified. Soft tissues are intact.Electronically signed by: CHARIS WHIPPLE (Feb 01, 2021 18:17:12)
[2021-02-01 18:20] LABS: BASOPHILS # (AUTO) 0.1 X10^3/uL (0.0-0.1); EOSINOPHILS # (AUTO) 0.1 x10^3/uL (0.0-0.2); EOSINOPHILS % (AUTO) 0.9 % (0.9-2.9); HEMATOCRIT 43.7 % (42.0-54.0); HEMOGLOBIN 14.7 g/dL (13.5-18.0); LYMPHOCYTES # (AUTO) 1.1 X10^3/uL (1.3-2.9); LYMPHOCYTES % (AUTO) 7.4 % (21.0-51.0); MEAN CORPUSCULAR HEMOGLOBIN 28.7 pg (27.0-34.0); MEAN CORPUSCULAR HGB CONC 33.5 g/dL (33.0-35.0); MEAN CORPUSCULAR VOLUME 85.6 fL (80.0-100.0); MEAN PLATELET VOLUME 8.7 fL (7.4-11.0); MONOCYTES # (AUTO) 0.6 x10^3/uL (0.3-0.8); MONOCYTES % (AUTO) 4.1 % (0.0-13.0); NEUTROPHILS % (AUTO) 86.6 % (42.0-75.0); PLATELET COUNT 334 X10^3/uL (150.0-450.0); RED CELL DISTRIBUTION WIDTH 15.9 % (11.6-16.5)
[2021-02-01 18:24] LABS: ALANINE AMINOTRANSFERASE 36 Units/L (12-78); ALKALINE PHOSPHATASE 42 Units/L (46-116); ASPARTATE AMINO TRANSFERASE 16 Units/L (15-37); BLOOD UREA NITROGEN 43 mg/dL (7-18); CARBON DIOXIDE 29.1 mmol/L (21-32); CHLORIDE 100 mmol/L (98-107); COR CA(FOR HYPOALB) 10.8 mg/dL (8.5-10.1); COR NA(FOR HYPERGLY) 141 mmol/L (136-145); CREATININE 1.04 mg/dL (0.70-1.30); SODIUM 137 mmol/L (136-145); TOTAL PROTEIN 6.3 g/dL (6.4-8.2); eGFR NON BLACK RACES > 60 (>60)
[2021-02-01 18:53] LABS: BAND NEUTROPHILS % 1 % (0-10); PLATELET MORPHOLOGY COMMENT NORMAL (NORMAL)
--- NOTE | 2021-02-01 19:03 | DR.GENAD ---
HPI Time Seen Time Seen by Provider: 02/01/21 18:54 PCP Primary Care Physician: RICARDA Complaint/Symptoms Chief Complaint Doctors Comments: 65 y/o male presents with constipation. + recent covid > 1 month ago. Had a hard BM yesterday. Trying OTC meds. Having abdominal discomfort, dull, diffuse. Does not radiate. Denies N/V, no fever/chills. No urinary issues. Chief Complaint:: PATIENT CAME TO ER REPORTS BEING CONSTIPATED. LAST BM YESTERDAY DESCRIBED HARD AND SMALL AMOUNT. COVID-19 Coronavirus risk:travel/contact w/high risk person: No Has patient experienced Coronavirus symptoms: No Nurses notes reviewed Nurses Notes Review: Yes Source History Provided: Patient Mode of Arrival Mode of Arrival: Wheelchair Timing Onset of Chief Complaint: 01/29/21 Came on: Gradually Severity Severity: Moderate Modifying Factors Worsens:: nothing Improves:: nothing PMH PMH Past Medical History: Yes Past Medical History: Diabetes, Dyslipidemia and Hypertension Past Medical History Comment: AFIB Past Surgical History: Yes Surgical History: Ortho Surgery and Tonsillectomy Family History History of Family Medical Conditions: Yes Family Medical History: Diabetes Mellitus, Cancer and [place] Social History Do you use any recreational Drugs:: No Travel Risk Coronavirus risk:travel/contact w/high risk person: No Has patient experienced Coronavirus symptoms: No Infectious screening In the last 2 months have you had wt loss of >10#?: NO Have you had fever, night sweats or hemotysis?: No Have you traveled outside the country in the last 6 months?: No Isolation: Standard ROS Review of Systems Constitutional: No Symptoms Reported Eyes: No Symptoms Reported ENTM: No Symptoms Reported Respiratoy: No Symptoms Reported Cardiovascular: No Symptoms Reported Gastrointestinal/Abdominal: Abdominal Pain and Constipation Genitourinary: No Symptoms Reported Neurological: No Symptoms Reported Musculoskeletal: No Symptoms Reported Integumentary: No Symptoms Reported Hematologic/Lymphatic: No Symptoms Reported Endocrine: No Symptoms Reported Psychiatric: No Symptoms Reported All Other Systems: Reviewed and Negative PE Vital Signs Vitals: Temperature 97.3 F Pulse Rate [Left Brachial] 96 Pulse Rate 111 Respiratory Rate 22 Blood Pressure [Left Arm] 121/82 Blood Pressure [Right Arm] 146/73 Blood Pressure 120/80 O2 Sat by Pulse Oximetry 96 General Limitations: No Limitations General Appearance: Alert and In No Apparent Distress Eyes Eye exam: Normal Appearance ENT ENT Exam: Normal Exam Throat Exam: Normal Inspection Neck Neck Exam: Normal Inspection and Full ROM Chest Chest Inspection: Normal Inspection Respiratory Respiratory Exam: Normal Lung Sounds Bilat; negative Accessory Muscle Use and Respiratory Distress Cardiovascular Cardiovascular Exam: Regular Rate, Normal Rhythm and Normal Heart Sounds Abdominal Exam Abdominal Exam: Normal Inspection, Normal Bowel Sounds and Tenderness (mild of all quadrants, no guarding or rebound. ) Extremities Extremities Exam: Normal Inspection; negative Full ROM Back Back Exam: Normal Inspection Neurologic Neurological Exam: Alert, Oriented X3 and CN II-XII Intact; negative Motor Sensory Deficit Psychiatric Psychiatric Exam: Normal Affect Skin Skin Exam: Warm and Dry MDM Differential Diagnosis Differential Diagnosis: constipation, SBO, diverticulitis, appendicitis COURSE Treatment Treatment: Pt with constipation, diffuse abdominal discomfort. Has been taking miralax, colace, suppositories. Given oral lactulose, w/u initiated. 2233 - + small pneumomediasatinum on CT of abd/pelvis, plus chronic changes in lung of c ovid.No acute abdominal abnormalities. Has degree of constipation, but no SBO, diverticulitis. Will admit for observation, air should reabsorb. Possibly from straining, with chronic covid lungs. Discussed with covering MD, Dr. Augustin, will admit for observation. Pt had covid screen - is + still (had > 1 month ago). ROR Labs Reviewed Laboratory Results Reviewed?: Yes Result Diagrams: 02/01/21 18:00 02/01/21 18:00 Laboratory: WBC 15.0 X10^3/uL (3.6-10.0) H 02/01/21 18:00 RBC 5.10 X10^6/uL (4.7-6.0) 02/01/21 18:00 Hgb 14.7 g/dL (13.5-18.0) 02/01/21 18:00 Hct 43.7 % (42.0-54.0) 02/01/21 18:00 MCV 85.6 fL (80.0-100.0) 02/01/21 18:00 MCH 28.7 pg (27.0-34.0) 02/01/21 18:00 MCHC 33.5 g/dL (33.0-35.0) 02/01/21 18:00 RDW 15.9 % (11.6-16.5) 02/01/21 18:00 Plt Count 334 X10^3/uL (150.0-450.0) 02/01/21 18:00 Plt Count Comment Adequate (ADEQUATE) 02/01/21 18:00 MPV 8.7 fL (7.4-11.0) 02/01/21 18:00 Neut % (Auto) 86.6 % (42.0-75.0) H 02/01/21 18:00 Lymph % (Auto) 7.4 % (21.0-51.0) L 02/01/21 18:00 [place] % (Auto) 4.1 % (0.0-13.0) 02/01/21 18:00 Eos % (Auto) 0.9 % (0.9-2.9) 02/01/21 18:00 Baso % (Auto) 1.0 % (0.2-1.0) 02/01/21 18:00 Neut # (Auto) 13.0 x10^3/uL (2.2-4.8) H 02/01/21 18:00 Lymph # (Auto) 1.1 X10^3/uL (1.3-2.9) L 02/01/21 18:00 [place] # (Auto) 0.6 x10^3/uL (0.3-0.8) 02/01/21 18:00 Eos # (Auto) 0.1 x10^3/uL (0.0-0.2) 02/01/21 18:00 Baso # (Auto) 0.1 X10^3/uL (0.0-0.1) 02/01/21 18:00 Absolute Nucleated RBC 0.0 /100WBC 02/01/21 18:00 Total Counted 100 02/01/21 18:00 Neutrophils % (Manual) 82 % (39-76) H 02/01/21 18:00 Band Neutrophils % 1 % (0-10) 02/01/21 18:00 Lymphocytes % (Manual) 12 % (13-43) L 02/01/21 18:00 Monocytes % (Manual) 4 % (4-9) 02/01/21 18:00 Plt Morphology Comment Normal (NORMAL) 02/01/21 18:00 RBC Morphology Normal (NORMAL) 02/01/21 18:00 Sodium 137 mmol/L (136-145) 02/01/21 18:00 Corrected Sodium 141 mmol/L (136-145) 02/01/21 18:00 Potassium 4.5 mmol/L (3.5-5.1) 02/01/21 18:00 Chloride 100 mmol/L (98-107) 02/01/21 18:00 Carbon Dioxide 29.1 mmol/L (21-32) 02/01/21 18:00 BUN 43 mg/dL (7-18) H 02/01/21 18:00 Creatinine 1.04 mg/dL (0.70-1.30) 02/01/21 18:00 Est GFR (MDRD) Af Amer > 60 (>60) 02/01/21 18:00 Est GFR (MDRD) Non-Af > 60 (>60) 02/01/21 18:00 Glucose 255 mg/dL (65-99) H 02/01/21 18:00 Calcium 10.0 mg/dL (8.5-10.1) 02/01/21 18:00 Corrected Calcium 10.8 mg/dL (8.5-10.1) H 02/01/21 18:00 Total Bilirubin 0.40 mg/dL (0.2-1.0) 02/01/21 18:00 AST 16 Units/L (15-37) 02/01/21 18:00 ALT 36 Units/L (12-78) 02/01/21 18:00 Alkaline Phosphatase 42 Units/L (46-116) L 02/01/21 18:00 Total Protein 6.3 g/dL (6.4-8.2) L 02/01/21 18:00 Albumin 3.0 g/dL (3.4-5.0) L 02/01/21 18:00 Globulin 3.3 g/dL (2.5-4.5) 02/01/21 18:00 Albumin/Globulin Ratio 0.9 Ratio (1.1-2.1) L 02/01/21 18:00 Specimen Type Clean catch urine 02/01/21 19:16 Urine Color Yellow (YELLOW) 02/01/21 19:16 Urine Appearance Clear (CLEAR) 02/01/21 19:16 Urine pH 5.0 (5.0 - 8.0) 02/01/21 19:16 Ur Specific [place] 1.025 (1.000-1.030) 02/01/21 19:16 Urine Protein 1+ (NEGATIVE) 02/01/21 19:16 Urine Glucose (UA) 4+ (NEGATIVE) 02/01/21 19:16 Urine Ketones Negative (NEGATIVE) 02/01/21 19:16 Urine Occult Blood 1+ (NEGATIVE) 02/01/21 19:16 Urine Nitrite Negative (NEGATIVE) 02/01/21 19:16 Urine Bilirubin Negative (NEGATIVE) 02/01/21 19:16 Urine Urobilinogen Normal (NORMAL) 02/01/21 19:16 Ur Leukocyte Esterase 1+ (NEGATIVE) 02/01/21 19:16 Urine RBC None seen /HPF (0-3) 02/01/21 19:16 Urine WBC 0-2 /HPF (0-5) 02/01/21 19:16 Ur Squamous Epith Cells Few /HPF (NEGATIVE) 02/01/21 19:16 Urine Bacteria Trace /HPF (NEGATIVE) 02/01/21 19:16 Ur Culture Indicated? No/not indicated 02/01/21 19:16 SARS CoV-2 RNA Rapid JOANN Positive (NEGATIVE) A 02/01/21 22:35 Other Results Comments: WBC 15K, glucose 223 XRAY XRAY Interpreted by: Radiologist X-ray Results: KUB - increased stool, no evidence for SBO. CT of abd/pelvis with IV contrast - + small pneumomediastinum (!!!), no free air of abdomen. Opioid Opioid Risk Tool Age (Moiz box if 16-45): No History of Preadolescent Sexual Abuse: No Total: 0 Total Score Risk Category: Low Risk Copyright: Anuel GUNTER predicting aberrant behaviors Diagnosis Discharge Problem: Pneumomediastinum, COVID-19
[2021-02-01] MEDS ORDERED: NS 1000 ML 1,000 ML IV ONE (19:08)
[2021-02-01] MEDS ORDERED: CHRONULAC PO ONE (19:09)
[2021-02-01] MEDS ORDERED: NS 1000 ML 1,000 ML ONE (19:18)
[2021-02-01] MEDS ORDERED: CHRONULAC ONE (19:26)
[2021-02-01 19:39] LABS: BILIRUBIN,URINE NEGATIVE (NEGATIVE); BLOOD/HEMOGLOBIN,URINE 1+ (NEGATIVE); GLUCOSE, URINE 4+ (NEGATIVE); KETONES,URINE NEGATIVE (NEGATIVE); LEUKOCYTE ESTERASE ,URINE 1+ (NEGATIVE); NITRITES,URINE NEGATIVE (NEGATIVE); PROTEIN,URINE 1+ (NEGATIVE); UROBILINOGEN,URINE NORMAL (NORMAL)
[2021-02-01 19:57] LABS: APPEARANCE,URINE CLEAR (CLEAR); BACTERIA,URINE TRACE /HPF (NEGATIVE); COLOR,URINE YELLOW (YELLOW); RBC,URINE NONE SEEN /HPF (0-3); SQUAMOUS EPITHELIAL CELL,UR FEW /HPF (NEGATIVE)
--- NOTE | 2021-02-01 22:09 | CT ---
HISTORYCONSTIPATION, ELEVATED WBCSTUDYABDOMEN/PELVIS WITH CONCOMPARISONMay 2020TECHNIQUEAxial CT images of the abdomen and pelvis were obtained after the administration of IV contrast, 100 mL Omnipaque 300, and reformatted into coronal and sagittal planes for further evaluation.Radiation dose: 579.80 mGy-cm total DLPFINDINGSPeripheral airspace opacities.Partially imaged pneumomediastinum.Sliding-type hiatal hernia.Otherwise, the stomach appears normal.Solid visceral organs of the upper abdomen are unremarkable.Gallbladder appears normal with no biliary dilatation.Small bilateral renal cysts.Otherwise, unremarkable appearance of the kidneys and ureters.Unremarkable appearance of the urinary bladder.Nonspecific enlargement of the prostate gland; similar to the previous exam.Mild edema in the small bowel mesentery in the left upper abdomen is less prominent than on the previous exam; most consistent mesenteric panniculitis.Moderate stool burden in the colon.Otherwise, unremarkable appearance of the large and small bowel.No evidence of acute appendicitis.No pneumoperitoneum.No significant fluid collection.No adenopathy.No acute osseous abnormality.[id number] degenerative disc disease without vertebral body height loss.IMPRESSION1. Interval development of partially imaged pneumomediastinum.2. Diffuse bilateral airspace opacities in the imaged portion of the lung parenchyma are consistent with the given history of a COVID-19 infection.3. Sliding-type hiatal hernia.4. Mild edema in the small bowel mesentery in the left upper abdomen is less prominent than on the previous exam; most consistent mesenteric panniculitis.Electronically signed by: Omar Brown (Feb 01, 2021 22:07:33)
--- NOTE | 2021-02-01 22:43 | RAD ---
HISTORYPNEUMOMEDIASTINUM, HX OF COVIDSTUDYCHEST, 1 VIEWCOMPARISONCT abdomen/pelvis, February 01, 2021 and chest radiograph, January 22, 2021TECHNIQUEChest radiographic imaging, AP portable projection, 1 imageFINDINGSNo cardiomegaly.Diffuse bilateral airspace opacities without significant change.Pneumomediastinum and subcutaneous emphysema at the right neck base.No pleural effusion.No pneumothorax.No acute osseous abnormality.IMPRESSIONNo significant changes in the degree of airspace disease when compared to the previous exam.New pneumomediastinum and subcutaneous emphysema at the right neck base; better visualized on the CT abdomen/pelvis study.Electronically signed by: Omar Brown (Feb 01, 2021 22:41:15)
[2021-02-01] MEDS ORDERED: VENTOLIN or PROAIR HFA IN SCH (23:54)
[2021-02-02] MEDS: NS 1000 ML 1,000 ML IV SCH ×2 (00:58→09:52)
[2021-02-02 01:24] VITALS: BMI 23.3
[2021-02-02] MEDS ORDERED: ACCUNEB 1.25 MG NEBULE NEB SCH (06:00)
[2021-02-02] MEDS: NEURONTIN CAP 100 MG PO SCH ×2 (06:25→14:29)
[2021-02-02 06:26] LABS: BASOPHILS % (AUTO) 0.4 % (0.2-1.0); EOSINOPHILS # (AUTO) 0.2 x10^3/uL (0.0-0.2); EOSINOPHILS % (AUTO) 1.7 % (0.9-2.9); HEMATOCRIT 40.5 % (42.0-54.0); HEMOGLOBIN 13.6 g/dL (13.5-18.0); LYMPHOCYTES # (AUTO) 1.3 X10^3/uL (1.3-2.9); LYMPHOCYTES % (AUTO) 11.5 % (21.0-51.0); MEAN CORPUSCULAR HEMOGLOBIN 28.8 pg (27.0-34.0); MEAN CORPUSCULAR HGB CONC 33.6 g/dL (33.0-35.0); MEAN CORPUSCULAR VOLUME 85.8 fL (80.0-100.0); MONOCYTES # (AUTO) 1.1 x10^3/uL (0.3-0.8); MONOCYTES % (AUTO) 9.3 % (0.0-13.0); NEUTROPHILS # (AUTO) 8.8 x10^3/uL (2.2-4.8); NEUTROPHILS % (AUTO) 77.1 % (42.0-75.0); PLATELET COUNT 324 X10^3/uL (150.0-450.0); RED BLOOD COUNT 4.71 X10^6/uL (4.7-6.0); RED CELL DISTRIBUTION WIDTH 16.4 % (11.6-16.5); WHITE BLOOD COUNT 11.4 X10^3/uL (3.6-10.0)
[2021-02-02] MEDS: TESSALON PERLES PO SCH ×2 (06:26→14:30)
[2021-02-02 06:49] LABS: ALANINE AMINOTRANSFERASE 32 Units/L (12-78); ALBUMIN 2.7 g/dL (3.4-5.0); ALKALINE PHOSPHATASE 34 Units/L (46-116); ASPARTATE AMINO TRANSFERASE 15 Units/L (15-37); BLOOD UREA NITROGEN 39 mg/dL (7-18); CARBON DIOXIDE 33.3 mmol/L (21-32); CHLORIDE 104 mmol/L (98-107); COR NA(FOR HYPERGLY) 142 mmol/L (136-145); CREATININE 0.72 mg/dL (0.70-1.30); SODIUM 141 mmol/L (136-145); TOTAL PROTEIN 5.6 g/dL (6.4-8.2); eGFR NON BLACK RACES > 60 (>60)
[2021-02-02 07:24] LABS: MYELOCYTES % 2; PLATELET MORPHOLOGY COMMENT NORMAL (NORMAL)
[2021-02-02] MEDS ORDERED: CARDIZEM CD 180 MG 24-HR PO SCH (09:00)
[2021-02-02] MEDS ORDERED: [UNRECOGNIZED DRUG - OTHER] PO SCH (09:00)
[2021-02-02] MEDS ORDERED: SINGULAIR TAB 10 MG PO SCH (09:00)
[2021-02-02] MEDS ORDERED: PULMICORT NEB TX 0.5 MG NEB SCH (09:00)
[2021-02-02] MEDS ORDERED: MILK OF MAGNESIA PO SCH (09:00)
[2021-02-02] MEDS ORDERED: PROTONIX TAB 40 MG PO SCH (09:00)
[2021-02-02] MEDS ORDERED: LANOXIN or DIGITEK PO SCH (09:00)
[2021-02-02] MEDS ORDERED: ELIQUIS PO SCH (09:00)
[2021-02-02] MEDS ORDERED: DITROPAN TAB 5 MG PO SCH (09:00)
[2021-02-02] MEDS ORDERED: QUINAPRIL 40 MG PO SCH (09:00)
[2021-02-02] MEDS ORDERED: SYNTHROID 50 mcg TAB PO SCH (09:00)
[2021-02-02] MEDS ORDERED: GLUCOTROL XL 24-HR PO SCH (09:00)
[2021-02-02] MEDS ORDERED: VITAMIN D3 125 mcg (5,000 UNITS) PO SCH (09:00)
[2021-02-02] MEDS ORDERED: FENOFIBRATE 50 MG PO SCH (09:00)
[2021-02-02] MEDS ORDERED: LOVAZA PO SCH (09:15)
[2021-02-02] MEDS ORDERED: TRICOR TAB 160 MG PO SCH (10:00)
[2021-02-02] MEDS ORDERED: ZESTRIL TAB 40 MG PO SCH (10:00)
[2021-02-02 12:19] VITALS: BP 137/68
--- NOTE | 2021-02-02 13:46 | DR.SSS ---
SHORT STAY SUMMARY Admission Date Date of Admission: 02/01/21 Discharge Date Discharge Date: 02/02/21 Admission Diagnoses Admission Diagnoses: Constipation COVID-19 infection Discharge Diagnoses Discharge Diagnoses: Constipation COVID-19 infection Chief Complaint Chief Complaint: Abdominal pain Constipation History of Present Illness History of Present Illness: Pt is a 65 year old male past medical history of Hypertension, Diabetes, admitted for abdominal pain, constipation, not having a bowel movement for the past 3-4 days. He does report still passing gas. Incidentally a new pneumomediastinum was discovered on imaging. Pt did have recent COVID-19 infection, still tested positive today, but states he had recovered and denies any dyspnea. He does not require any supplemental oxygen. Labs/imaging: Wbc 11.4, Hgb 13.6, Plt 324, Na 141, K 4.5, Creatinine 0.72, Glucose 136, CTAP was obtained that revealed: 1. Interval development of partially imaged pneumomediastinum. 2. Diffuse bilateral airspace opacities in the imaged portion of the lung parenchyma are consistent with the given history of a COVID-19 infection. 3. Sliding-type hiatal hernia. 4. Mild edema in the small bowel mesentery in the left upper abdomen is less prominent than on the previous exam; most consistent mesenteric panniculitis. CXR: New pneumomediastinum and subcutaneous emphysema at the right neck base; better visualized on the CT abdomen/pelvis study. Educated patient pneumomediastinum will resolve on its own with time. No obstruction on CTAP. Pt was given lactulose and milk of magnesia without relief. Ordered soap suds enema that was administered by nursing with a lot of stool expelled. Pt felt relieved. Pt has colace and miralax at home he can continue using if necessary. He was discharged in stable condition. Instructed to follow up with pcp in 3-5 days. Past Medical History Past Medical History: Diabetes, Dyslipidemia and Hypertension Past Surgical History Surgical History: Ortho Surgery and Tonsillectomy Allergies Allergies Allergy/AdvReac Type Severity Reaction Status Date / Time No Known Drug Allergies Allergy Verified 01/06/21 14:36 Medications Home Medications: No Known Drug Allergies Allergy (Verified 01/06/21 14:36) CONTINUE taking the following medications digoxin 125 mcg PO DAILY 02/01/21 [History] glipizide 2.5 mg PO DAILY 02/01/21 [History] montelukast 10 mg PO DAILY 02/01/21 [History] Family History Family Medical History: Diabetes Mellitus, Cancer and [place] Social History Does any household member use tobacco: No Alcohol Use: None Drug Use: None Review of Systems Constitutional: No Symptoms Reported Eyes: No Symptoms Reported ENT: No Symptoms Reported Respiratory: No Symptoms Reported Cardiovascular: No Symptoms Reported Gastrointestinal: Abdominal Pain and Constipation Genitourinary: No Symptoms Reported Musculoskeletal: No Symptoms Reported Skin: No Symptoms Reported Neurological: No Symptoms Reported Physical Exam Vital Signs: Last Vital Signs Temp 98.2 F 02/02/21 12:00 Pulse 73 02/02/21 12:00 Resp 20 02/02/21 12:00 BP 137/68 02/02/21 12:00 Pulse Ox 94 L 02/02/21 12:00 Oriented: Normal Eyes: Normal Ear: Normal Nose: Normal Throat: Normal Respiratory: Clear Throughout Cardiovascular: Normal : Normal Auscultation: Bowel Sounds: Increased Palpation: Normal Tenderness: Diffuse and Mild Skin: Normal Musculoskeletal: Normal Psychiatric: Normal Mood Description: Calm Affect: Normal Speech Pattern: Clear Labs Labs: Laboratory Last Values WBC 11.4 X10^3/uL (3.6-10.0) H 02/02/21 05:20 RBC 4.71 X10^6/uL (4.7-6.0) 02/02/21 05:20 Hgb 13.6 g/dL (13.5-18.0) 02/02/21 05:20 Hct 40.5 % (42.0-54.0) L 02/02/21 05:20 MCV 85.8 fL (80.0-100.0) 02/02/21 05:20 MCH 28.8 pg (27.0-34.0) 02/02/21 05:20 MCHC 33.6 g/dL (33.0-35.0) 02/02/21 05:20 RDW 16.4 % (11.6-16.5) 02/02/21 05:20 Plt Count 324 X10^3/uL (150.0-450.0) 02/02/21 05:20 Plt Count Comment Adequate (ADEQUATE) 02/02/21 05:20 MPV 9.0 fL (7.4-11.0) 02/02/21 05:20 Neut % (Auto) 77.1 % (42.0-75.0) H 02/02/21 05:20 Lymph % (Auto) 11.5 % (21.0-51.0) L 02/02/21 05:20 [place] % (Auto) 9.3 % (0.0-13.0) 02/02/21 05:20 Eos % (Auto) 1.7 % (0.9-2.9) 02/02/21 05:20 Baso % (Auto) 0.4 % (0.2-1.0) 02/02/21 05:20 Neut # (Auto) 8.8 x10^3/uL (2.2-4.8) H 02/02/21 05:20 Lymph # (Auto) 1.3 X10^3/uL (1.3-2.9) 02/02/21 05:20 [place] # (Auto) 1.1 x10^3/uL (0.3-0.8) H 02/02/21 05:20 Eos # (Auto) 0.2 x10^3/uL (0.0-0.2) 02/02/21 05:20 Baso # (Auto) 0.0 X10^3/uL (0.0-0.1) 02/02/21 05:20 Absolute Nucleated RBC 0.0 /100WBC 02/02/21 05:20 Total Counted 100 02/02/21 05:20 Neutrophils % (Manual) 67 % (39-76) 02/02/21 05:20 Band Neutrophils % 1 % (0-10) 02/01/21 18:00 Lymphocytes % (Manual) 15 % (13-43) 02/02/21 05:20 Monocytes % (Manual) 15 % (4-9) H 02/02/21 05:20 Eosinophils % (Manual) 1 % (0-6) 02/02/21 05:20 Myelocytes % 2 02/02/21 05:20 Plt Morphology Comment Normal (NORMAL) 02/02/21 05:20 RBC Morphology Normal (NORMAL) 02/02/21 05:20 Sodium 141 mmol/L (136-145) 02/02/21 05:20 Corrected Sodium 142 mmol/L (136-145) 02/02/21 05:20 Potassium 4.5 mmol/L (3.5-5.1) 02/02/21 05:20 Chloride 104 mmol/L (98-107) 02/02/21 05:20 Carbon Dioxide 33.3 mmol/L (21-32) H 02/02/21 05:20 BUN 39 mg/dL (7-18) H 02/02/21 05:20 Creatinine 0.72 mg/dL (0.70-1.30) 02/02/21 05:20 Est GFR (MDRD) Af Amer > 60 (>60) 02/02/21 05:20 Est GFR (MDRD) Non-Af > 60 (>60) 02/02/21 05:20 Glucose 136 mg/dL (65-99) H 02/02/21 05:20 POC Glucose (mg/dL) 211 mg/dL (65-99) H 02/02/21 11:14 Calcium 9.0 mg/dL (8.5-10.1) 02/02/21 05:20 Corrected Calcium 10.0 mg/dL (8.5-10.1) 02/02/21 05:20 Total Bilirubin 0.50 mg/dL (0.2-1.0) 02/02/21 05:20 AST 15 Units/L (15-37) 02/02/21 05:20 ALT 32 Units/L (12-78) 02/02/21 05:20 Alkaline Phosphatase 34 Units/L (46-116) L 02/02/21 05:20 Total Protein 5.6 g/dL (6.4-8.2) L 02/02/21 05:20 Albumin 2.7 g/dL (3.4-5.0) L 02/02/21 05:20 Globulin 2.9 g/dL (2.5-4.5) 02/02/21 05:20 Albumin/Globulin Ratio 0.9 Ratio (1.1-2.1) L 02/02/21 05:20 Specimen Type Clean catch urine 02/01/21 19:16 Urine Color Yellow (YELLOW) 02/01/21 19:16 Urine Appearance Clear (CLEAR) 02/01/21 19:16 Urine pH 5.0 (5.0 - 8.0) 02/01/21 19:16 Ur Specific [place] 1.025 (1.000-1.030) 02/01/21 19:16 Urine Protein 1+ (NEGATIVE) 02/01/21 19:16 Urine Glucose (UA) 4+ (NEGATIVE) 02/01/21 19:16 Urine Ketones Negative (NEGATIVE) 02/01/21 19:16 Urine Occult Blood 1+ (NEGATIVE) 02/01/21 19:16 Urine Nitrite Negative (NEGATIVE) 02/01/21 19:16 Urine Bilirubin Negative (NEGATIVE) 02/01/21 19:16 Urine Urobilinogen Normal (NORMAL) 02/01/21 19:16 Ur Leukocyte Esterase 1+ (NEGATIVE) 02/01/21 19:16 Urine RBC None seen /HPF (0-3) 02/01/21 19:16 Urine WBC 0-2 /HPF (0-5) 02/01/21 19:16 Ur Squamous Epith Cells Few /HPF (NEGATIVE) 02/01/21 19:16 Urine Bacteria Trace /HPF (NEGATIVE) 02/01/21 19:16 Ur Culture Indicated? No/not indicated 02/01/21 19:16 Digoxin 0.39 ng/mL (0.9-2) L 02/02/21 05:20 SARS CoV-2 RNA Rapid JOANN Positive (NEGATIVE) A 02/01/21 22:35 Assessment/Plan (1) Constipation: (2) Pneumomediastinum: (3) COVID-19: Hospital Course Hospital Course: Pt is a 65 year old male past medical history of Hypertension, Diabetes, admitted for abdominal pain, constipation, not having a bowel movement for the past 3-4 days. He does report still passing gas. Incidentally a new pneumomediastinum was discovered on imaging. Pt did have recent COVID-19 infection, still tested positive today, but states he had recovered and denies any dyspnea. He does not require any supplemental oxygen. Labs/imaging: Wbc 11.4, Hgb 13.6, Plt 324, Na 141, K 4.5, Creatinine 0.72, Glucose 136, CTAP was obtained that revealed: 1. Interval development of partially imaged pneumomediastinum. 2. Diffuse bilateral airspace opacities in the imaged portion of the lung parenchyma are consistent with the given history of a COVID-19 infection. 3. Sliding-type hiatal hernia. 4. Mild edema in the small bowel mesentery in the left upper abdomen is less prominent than on the previous exam; most consistent mesenteric panniculitis. CXR: New pneumomediastinum and subcutaneous emphysema at the right neck base; better visualized on the CT abdomen/pelvis study. Educated patient pneumomediastinum will resolve on its own with time. No obstruction on CTAP. Pt was given lactulose and milk of magnesia without relief. Ordered soap suds enema that was administered by nursing with a lot of stool expelled. Pt felt relieved. Pt has colace and miralax at home he can continue using if necessary. He was discharged in stable condition. Instructed to follow up with pcp in 3-5 days. Discharge Medications Discharge Medications: Home Medication List digoxin 125 mcg PO DAILY 02/01/21 [History] glipizide 2.5 mg PO DAILY 02/01/21 [History] montelukast 10 mg PO DAILY 02/01/21 [History] Prescriptions: Discharge Disposition Discharge Disposition: Home
== END 2021-02-02 15:49 | disposition home or self-care (01) | DRG 179 ==
LOC: ER 15:12 → MED/SURG 23:50
PROVIDERS: ADMIT Internal Medicine; ATTEND Internal Medicine
DX: I10 Essential (primary) hypertension; U07.1 COVID-19; E78.2 Mixed hyperlipidemia; R10.84 Generalized abdominal pain; J98.2 Interstitial emphysema; K59.00 Constipation, unspecified; E11.65 Type 2 diabetes mellitus with hyperglycemia